=== PATIENT | male | born 1990 | race Caucasian/White ===

== ENCOUNTER 2016-07-10 06:52 | Inpatient (IN) | payer MEDICAID ==
[2016-07-10] MEDS ORDERED: Ondansetron 4 MG/2 ML SDV IVPUSH ONE ×2 (07:24→10:06)
[2016-07-10] MEDS ORDERED: Lactated Ringers 1,000 ML IV SCH ×2 (07:30→09:00)
[2016-07-10] MEDS ORDERED: Lactated Ringers 1,000 ML IV ONE (10:05)
[2016-07-10] MEDS ORDERED: Iopamidol 612 MG/ML 150 ML Bottle IV PRN (11:30)
[2016-07-10] MEDS ORDERED: Sodium Chloride 0.9% with KCl 1,000 ML IV SCH (12:15)
--- NOTE | 2016-07-10 14:32 | EDM.PDOC ---
ED HPI GENERAL MEDICAL PROBLEM - General Chief Complaint: Gastrointestinal Problem Stated Complaint: CAN'T KEEP ANYTHING DOWN Time Seen by Provider: 07/10/16 07:48 Source of Information: Reports: Patient History Limitations: Reports: No Limitations - History of Present Illness INITIAL COMMENTS - FREE TEXT/NARRATIVE: History of present illness: [25-year-old male presents with about 5 days of vomiting. He states he's had this problem in the past and has had to come in for IV fluids. He's got some generalized abdominal pain which she attributes to all the vomiting he's been doing. He's not had any diarrhea. He's had no fevers or chills. He does have a history of schizophrenia and is on Latuda and feels this is working well for him.] Review of systems: As per history of present illness and below otherwise all systems reviewed and negative. Past medical history: As per history of present illness and as reviewed below otherwise noncontributory. Surgical history: As per history of present illness and as reviewed below otherwise noncontributory. Social history: No reported history of drug or alcohol abuse. Family history: As per history of present illness and as reviewed below otherwise noncontributory. Physical exam: Gen.: He does appear to be D. hydrated in but he may seated with sunken eyes. HEENT: Atraumatic, normocephalic, pupils reactive, negative for conjunctival pallor or scleral icterus, mucous membranes moist, throat clear, neck supple, nontender, trachea midline. Lungs: Clear to auscultation, breath sounds equal bilaterally, chest nontender. Heart: S1S2, regular, negative for clicks, rubs, or JVD. Abdomen: Soft, nondistended, mild tenderness without peritoneal signs.. Negative for masses or hepatosplenomegaly. Negative for costovertebral tenderness. Pelvis: Stable nontender. Genitourinary: Deferred. Rectal: Deferred. Extremities: Atraumatic, negative for cords or calf pain. Neurovascular unremarkable. Neuro: Awake, alert, oriented. Cranial nerves II through XII unremarkable. Cerebellum unremarkable. Motor and sensory unremarkable throughout. Exam nonfocal. Diagnostics: [Serial labs were drawn and did show improvement in his white count and his potassium and his creatinine and BUN. Please see labs for details. I did do an abdominal pelvic CT because on careful examination of his abdomen he seemed to have some right lower quadrant abdominal pain but his appendix was normal.] Therapeutics: [He received 3 or 4 L of fluids while here and did improve and in looked better as we hydrated him.] Impression: [ nausea vomiting and dehydration] Plan: [He'll be discharged to the care of his father who he lives with. I am wondering if his medications to do could be contributing to this problem and he has an appointment coming up with the provider that is prescribing this for him and I suggested that he discuss this possibility with that provider.] Definitive disposition and diagnosis as appropriate pending reevaluation and review of above. - Related Data Allergies Allergy/AdvReac Type Severity Reaction Status Date / Time No Known Allergies Allergy Verified 09/26/15 20:28 Home Meds: Home Meds Lurasidone [Latuda] 1 tab PO DAILY 07/10/16 [History] Past Medical History Neurological History: Reports: Concussion Psychiatric History: Reports: Anxiety, Depression, Hallucinations, Psych Hospitalization(s), Schizophrenia, Suicidal Ideation - Infectious Disease History Infectious Disease History: Reports: Chicken Pox Social & Family History - Tobacco Use Smoking Status *Q: Current Every Day Smoker Years of Tobacco use: 6 Packs/Tins Daily: 0.5 Used Tobacco, but Quit: No Second Hand Smoke Exposure: No - Caffeine Use Caffeine Use: Reports: Soda Caffeine Use Comment: sweveral a day - Alcohol Use Days Per Week of Alcohol Use: 0 - Recreational Drug Use Recreational Drug Use: Yes Drug Use in Last 12 Months: Yes Recreational Drug Type: Reports: Marijuana/Hashish Recreational Drug Use Frequency: Weekly Recreational Drug Last Use: 10/28/13 ED ROS GENERAL - Review of Systems Review Of Systems: ROS reveals no pertinent complaints other than HPI. ED EXAM, GI/ABD - Physical Exam Exam: See Below Course - Vital Signs Last Recorded V/S: Last Vital Signs Temp 37.4 C 07/10/16 13:04 Pulse 78 07/10/16 13:04 Resp 12 07/10/16 13:04 BP 141/75 H 07/10/16 13:04 Pulse Ox 95 07/10/16 13:04 - Orders/Labs/Meds Orders: Active Orders 24 hr Category Date Time Status Abdomen 2V AP Flat Upright [CR] Stat Exams 07/10/16 07:34 Taken Abdomen Pelvis w Cont [CT] Stat Exams 07/10/16 10:58 Taken Iopamidol [Isovue-300 (61%)] Med 07/10/16 11:30 Active 132 ml IV . DIRECTED PRN Lactated Ringers [Ringers, Lactated] 1,000 ml Med 07/10/16 07:30 Active IV ASDIRECTED Lactated Ringers [Ringers, Lactated] 1,000 ml Med 07/10/16 09:00 Active IV ASDIRECTED Sodium Chloride 0.9% [Normal Saline] 83 ml Med 07/10/16 11:30 Active IV ASDIRECTED Sodium Chloride 0.9% with KCl [Normal Saline with 40 Med 07/10/16 12:15 Active mEq KCl] 1,000 ml IV ASDIRECTED Medication Orders Lactated Ringer's (Ringers, Lactated) 1,000 mls @ 999 mls/hr IV ASDIRECTED MAYLIN Last Admin: 07/10/16 07:36 Dose: 999 mls/hr Lactated Ringer's (Ringers, Lactated) 1,000 mls @ 999 mls/hr IV ASDIRECTED MAYLIN Last Admin: 07/10/16 08:49 Dose: 999 mls/hr Sodium Chloride (Normal Saline) 83 mls @ 3.5 mls/sec IV ASDIRECTED MAYLIN Last Admin: 07/10/16 11:40 Dose: 3.5 mls/sec Potassium Chloride/Sodium Chloride (Normal Saline With 40 Meq Kcl) 1,000 mls @ 250 mls/hr IV ASDIRECTED MAYLIN Last Admin: 07/10/16 12:10 Dose: 250 mls/hr Iopamidol (Isovue-300 (61%)) 132 ml IV . DIRECTED PRN PRN Reason: RADIOLOGY EXAM Stop: 07/11/16 11:31 Last Admin: 07/10/16 11:40 Dose: 132 ml Labs: Laboratory Tests 07/10/16 07/10/16 07/10/16 Range/Units 07:32 07:32 07:32 WBC 14.1 H (4.5-11.0) K/uL RBC 5.52 (4.30-5.90) M/uL Hgb 17.8 H D (12.0-15.0) g/dL Hct 50.0 (40.0-54.0) % MCV 91 (80-98) fL MCH 32 H (27-31) pg MCHC 36 (32-36) % Plt Count 345 (150-400) K/uL Neut % (Auto) 80 H (36-66) % Lymph % (Auto) 10 L (24-44) % [place] % (Auto) 10 H (2-6) % Eos % (Auto) 0 L (2-4) % Baso % (Auto) 0 (0-1) % Sodium 139 L (140-148) mmol/L Potassium 3.6 (3.6-5.2) mmol/L Chloride 97 L (100-108) mmol/L Carbon Dioxide 32 (21-32) mmol/L Anion Gap 13.6 (5.0-14.0) mmol/L BUN 21 H D (7-18) mg/dL Creatinine 1.8 H D (0.8-1.3) mg/dL Est Cr Clr Drug Dosing 68.26 mL/min Estimated GFR (MDRD) 46 L (>60) Glucose 155 H (74-106) mg/dL Lactic Acid 2.6 H (0.4-2.0) mmol/L Calcium 9.3 (8.5-10.1) mg/dL Total Bilirubin 0.9 (0.2-1.0) mg/dL AST 44 H (15-37) U/L ALT 40 (12-78) U/L Alkaline Phosphatase 68 (46-116) U/L Total Protein 8.7 H (6.4-8.2) g/dL Albumin 5.1 H (3.4-5.0) g/dL Globulin 3.6 H (2.3-3.5) g/dL Albumin/Globulin Ratio 1.4 (1.2-2.2) Urine Color Urine Appearance Urine pH (4.5-8.0) Ur Specific [place] (1.008-1.030) Urine Protein (NEGATIVE) mg/dL Urine Glucose (UA) (NEGATIVE) mg/dL Urine Ketones (NEGATIVE) mg/dL Urine Occult Blood (NEGATIVE) Urine Nitrite (NEGAITVE) Urine Bilirubin (NEGATIVE) Urine Urobilinogen (NORMAL) mg/dL Ur Leukocyte Esterase (NEGATIVE) Urine RBC (0-5) Urine WBC (0-5) Ur Epithelial Cells Amorphous Sediment Urine Bacteria Urine Mucus Urine Other Urine Opiates Screen (NEGATIVE) Ur Oxycodone Screen (NEGATIVE) Urine Methadone Screen (NEGATIVE) Ur Propoxyphene Screen (NEGATIVE) Ur Barbiturates Screen (NEGATIVE) Ur Tricyclics Screen (NEGATIVE) Ur Phencyclidine Scrn (NEGATIVE) Ur Amphetamine Screen (NEGATIVE) U Methamphetamines Scrn (NEGATIVE) Urine MDMA Screen (NEGATIVE) U Benzodiazepines Scrn (NEGATIVE) U Cocaine Metab Screen (NEGATIVE) U Marijuana (THC) Screen (NEGATIVE) Ethyl Alcohol mg/dL 07/10/16 07/10/16 07/10/16 Range/Units 07:32 09:40 09:40 WBC (4.5-11.0) K/uL RBC (4.30-5.90) M/uL Hgb (12.0-15.0) g/dL Hct (40.0-54.0) % MCV (80-98) fL MCH (27-31) pg MCHC (32-36) % Plt Count (150-400) K/uL Neut % (Auto) (36-66) % Lymph % (Auto) (24-44) % [place] % (Auto) (2-6) % Eos % (Auto) (2-4) % Baso % (Auto) (0-1) % Sodium (140-148) mmol/L Potassium (3.6-5.2) mmol/L Chloride (100-108) mmol/L Carbon Dioxide (21-32) mmol/L Anion Gap (5.0-14.0) mmol/L BUN (7-18) mg/dL Creatinine (0.8-1.3) mg/dL Est Cr Clr Drug Dosing mL/min Estimated GFR (MDRD) (>60) Glucose (74-106) mg/dL Lactic Acid (0.4-2.0) mmol/L Calcium (8.5-10.1) mg/dL Total Bilirubin (0.2-1.0) mg/dL AST (15-37) U/L ALT (12-78) U/L Alkaline Phosphatase (46-116) U/L Total Protein (6.4-8.2) g/dL Albumin (3.4-5.0) g/dL Globulin (2.3-3.5) g/dL Albumin/Globulin Ratio (1.2-2.2) Urine Color Yellow Urine Appearance Slightly cloudy Urine pH 7.0 (4.5-8.0) Ur Specific [place] 1.015 (1.008-1.030) Urine Protein 30 H (NEGATIVE) mg/dL Urine Glucose (UA) Normal (NEGATIVE) mg/dL Urine Ketones 15 H (NEGATIVE) mg/dL Urine Occult Blood Negative (NEGATIVE) Urine Nitrite Negative (NEGAITVE) Urine Bilirubin Negative (NEGATIVE) Urine Urobilinogen Normal (NORMAL) mg/dL Ur Leukocyte Esterase Negative (NEGATIVE) Urine RBC 0-5 (0-5) Urine WBC 0-5 (0-5) Ur Epithelial Cells Rare Amorphous Sediment Not seen Urine Bacteria Not seen Urine Mucus Many Urine Other Urine Opiates Screen Negative (NEGATIVE) Ur Oxycodone Screen Negative (NEGATIVE) Urine Methadone Screen Negative (NEGATIVE) Ur Propoxyphene Screen Negative (NEGATIVE) Ur Barbiturates Screen Negative (NEGATIVE) Ur Tricyclics Screen Negative (NEGATIVE) Ur Phencyclidine Scrn Negative (NEGATIVE) Ur Amphetamine Screen Negative (NEGATIVE) U Methamphetamines Scrn Negative (NEGATIVE) Urine MDMA Screen Negative (NEGATIVE) U Benzodiazepines Scrn Negative (NEGATIVE) U Cocaine Metab Screen Negative (NEGATIVE) U Marijuana (THC) Screen Positive H (NEGATIVE) Ethyl Alcohol < 3 mg/dL 07/10/16 07/10/16 07/10/16 Range/Units 11:06 13:58 13:58 WBC 13.4 H (4.5-11.0) K/uL RBC 4.80 (4.30-5.90) M/uL Hgb 15.6 H D (12.0-15.0) g/dL Hct 44.0 (40.0-54.0) % MCV 92 (80-98) fL MCH 33 H (27-31) pg MCHC 36 (32-36) % Plt Count 283 (150-400) K/uL Neut % (Auto) 72 H (36-66) % Lymph % (Auto) 16 L (24-44) % [place] % (Auto) 12 H (2-6) % Eos % (Auto) 0 L (2-4) % Baso % (Auto) 0 (0-1) % Sodium 140 139 L (140-148) mmol/L Potassium 3.3 L 3.6 (3.6-5.2) mmol/L Chloride 100 101 (100-108) mmol/L Carbon Dioxide 32 31 (21-32) mmol/L Anion Gap 11.3 10.6 (5.0-14.0) mmol/L BUN 19 H 16 (7-18) mg/dL Creatinine 1.5 H 1.4 H (0.8-1.3) mg/dL Est Cr Clr Drug Dosing 81.91 87.76 mL/min Estimated GFR (MDRD) 57 L > 60 (>60) Glucose 123 H 120 H (74-106) mg/dL Lactic Acid (0.4-2.0) mmol/L Calcium 9.0 8.6 (8.5-10.1) mg/dL Total Bilirubin (0.2-1.0) mg/dL AST (15-37) U/L ALT (12-78) U/L Alkaline Phosphatase (46-116) U/L Total Protein (6.4-8.2) g/dL Albumin (3.4-5.0) g/dL Globulin (2.3-3.5) g/dL Albumin/Globulin Ratio (1.2-2.2) Urine Color Urine Appearance Urine pH (4.5-8.0) Ur Specific [place] (1.008-1.030) Urine Protein (NEGATIVE) mg/dL Urine Glucose (UA) (NEGATIVE) mg/dL Urine Ketones (NEGATIVE) mg/dL Urine Occult Blood (NEGATIVE) Urine Nitrite (NEGAITVE) Urine Bilirubin (NEGATIVE) Urine Urobilinogen (NORMAL) mg/dL Ur Leukocyte Esterase (NEGATIVE) Urine RBC (0-5) Urine WBC (0-5) Ur Epithelial Cells Amorphous Sediment Urine Bacteria Urine Mucus Urine Other Urine Opiates Screen (NEGATIVE) Ur Oxycodone Screen (NEGATIVE) Urine Methadone Screen (NEGATIVE) Ur Propoxyphene Screen (NEGATIVE) Ur Barbiturates Screen (NEGATIVE) Ur Tricyclics Screen (NEGATIVE) Ur Phencyclidine Scrn (NEGATIVE) Ur Amphetamine Screen (NEGATIVE) U Methamphetamines Scrn (NEGATIVE) Urine MDMA Screen (NEGATIVE) U Benzodiazepines Scrn (NEGATIVE) U Cocaine Metab Screen (NEGATIVE) U Marijuana (THC) Screen (NEGATIVE) Ethyl Alcohol mg/dL Meds: Medications Generic Name Dose Route Start Last Admin Trade Name Freq PRN Reason Stop Dose Admin Lactated Ringer's 1,000 mls @ 999 mls/hr 07/10/16 07:30 07/10/16 07:36 Ringers, Lactated IV 999 mls/hr ASDIRECTED MAYLIN Administration Lactated Ringer's 1,000 mls @ 999 mls/hr 07/10/16 09:00 07/10/16 08:49 Ringers, Lactated IV 999 mls/hr ASDIRECTED MAYLIN Administration Sodium Chloride 83 mls @ 3.5 mls/sec 07/10/16 11:30 07/10/16 11:40 Normal Saline IV 3.5 mls/sec ASDIRECTED MAYLIN Administration Potassium Chloride/Sodium Chloride 1,000 mls @ 250 mls/hr 07/10/16 12:15 12:10 Normal Saline With 40 Meq Kcl IV 250 mls/hr ASDIRECTED MAYLIN Administration Iopamidol 132 ml 07/10/16 11:30 07/10/16 11:40 Isovue-300 (61%) IV 07/11/16 11:31 132 ml . DIRECTED PRN Administration RADIOLOGY EXAM Discontinued Medications Generic Name Dose Route Start Last Admin Trade Name Freq PRN Reason Stop Dose Admin Lactated Ringer's 1,000 mls @ 999 mls/hr 07/10/16 10:05 07/10/16 10:16 Ringers, Lactated IV 07/10/16 11:05 999 mls/hr BOLUS ONE Administration Ondansetron HCl 4 mg 07/10/16 07:24 07/10/16 07:41 Zofran IVPUSH 07/10/16 07:25 4 mg ONETIME ONE Administration Ondansetron HCl 4 mg 07/10/16 10:06 07/10/16 10:17 Zofran IVPUSH 07/10/16 10:07 4 mg ONETIME ONE Administration Departure - Departure Time of Disposition: 14:31 Disposition: Home, Self-Care 01 Condition: good Clinical Impression: Dehydration Nausea and vomiting Qualifiers: Vomiting type: unspecified Vomiting Intractability: non-intractable Qualified Code(s): R11.2 - Nausea with vomiting, unspecified - Discharge Information Forms: ED Department Discharge Additional Instructions: Please followup with the provider that is prescribing Latuda to you and discuss with them the possibility that this is causing you to have episodes of nausea and vomiting. - My Orders Last 24 Hours: My Active Orders 07/10/16 07:30 Lactated Ringers [Ringers, Lactated] 1,000 ml IV ASDIRECTED 07/10/16 07:34 Abdomen 2V AP Flat Upright [CR] Stat 07/10/16 09:00 Lactated Ringers [Ringers, Lactated] 1,000 ml IV ASDIRECTED 07/10/16 10:58 Abdomen Pelvis w Cont [CT] Stat 07/10/16 11:30 Iopamidol [Isovue-300 (61%)] 132 ml IV . DIRECTED PRN Sodium Chloride 0.9% [Normal Saline] 83 ml IV ASDIRECTED 07/10/16 12:15 Sodium Chloride 0.9% with KCl [Normal Saline with 40 mEq KCl] 1,000 ml IV ASDIRECTED - Assessment/Plan Last 24 Hours: My Active Orders 07/10/16 07:30 Lactated Ringers [Ringers, Lactated] 1,000 ml IV ASDIRECTED 07/10/16 07:34 Abdomen 2V AP Flat Upright [CR] Stat 07/10/16 09:00 Lactated Ringers [Ringers, Lactated] 1,000 ml IV ASDIRECTED 07/10/16 10:58 Abdomen Pelvis w Cont [CT] Stat 07/10/16 11:30 Iopamidol [Isovue-300 (61%)] 132 ml IV . DIRECTED PRN Sodium Chloride 0.9% [Normal Saline] 83 ml IV ASDIRECTED 07/10/16 12:15 Sodium Chloride 0.9% with KCl [Normal Saline with 40 mEq KCl] 1,000 ml IV ASDIRECTED
--- NOTE | 2016-07-10 17:10 | PCM.HP ---
H&P History of Present Illness - General Date of Service: 07/10/16 Admit Problem/Dx: Admission Diagnosis/Problem Admission Diagnosis/Problem Nausea and vomiting Source of Information: Patient, Old Records, Provider, RN Notes Reviewed History Limitations: Reports: No Limitations - History of Present Illness Initial Comments - Free Text/Narative: Mr. Crooks is a 25-year-old gentleman who is admitted through the emergency room for further evaluation of epigastric abdominal pain as well as persistent nausea and vomiting. He's had a history of intermittent nausea vomiting over the past few years seems to progressively gotten worse over the past 2 months and severely worse over the past several days. Now over the past 2 days has not had anything to eat but has been able to consume some liquids. He has an underlying history of schizophrenia, did start Latuda is a new medication approximately 2 months ago. Review of the potential side effects of medication showed that nausea and vomiting are possible. His white blood cell count is modestly elevated, CT scan of the abdomen and pelvis shows no significant abnormality. Vital signs have been stable and he has remained afebrile. Pain is described as an intense ache cramping sensation, it's always associated with nausea vomiting. Pain does not radiate, and once it starts it's persistent until he is able to go to sleep at night. - Related Data Allergies/Adverse Reactions: Allergies Allergy/AdvReac Type Severity Reaction Status Date / Time No Known Allergies Allergy Verified 09/26/15 20:28 Home Medications: Home Meds Lurasidone [Latuda] 1 tab PO DAILY 07/10/16 [History] Past Medical History Neurological History: Reports: Concussion Psychiatric History: Reports: Anxiety, Depression, Hallucinations, Psych Hospitalization(s), Schizophrenia, Suicidal Ideation - Infectious Disease History Infectious Disease History: Reports: Chicken Pox Social & Family History - Tobacco Use Smoking Status *Q: Current Every Day Smoker Years of Tobacco use: 6 Packs/Tins Daily: 0.5 Used Tobacco, but Quit: No Second Hand Smoke Exposure: No - Caffeine Use Caffeine Use: Reports: Soda Caffeine Use Comment: sweveral a day - Alcohol Use Days Per Week of Alcohol Use: 0 - Recreational Drug Use Recreational Drug Use: Yes Drug Use in Last 12 Months: Yes Recreational Drug Type: Reports: Marijuana/Hashish Recreational Drug Use Frequency: Weekly Recreational Drug Last Use: 10/28/13 H&P Review of Systems - Review of Systems: Review Of Systems: See Below General: Reports: Diaphoresis. Denies: Fever, Chills HEENT: Reports: No Symptoms Pulmonary: Reports: No Symptoms Cardiovascular: Reports: No Symptoms Gastrointestinal: Reports: Abdominal Pain, Nausea, Vomiting. Denies: Black Stool, Bloody Stool, Constipation, Diarrhea, Difficulty Swallowing, Distension Genitourinary: Reports: No Symptoms Musculoskeletal: Reports: No Symptoms Skin: Reports: No Symptoms Psychiatric: Reports: No Symptoms Neurological: Reports: No Symptoms Hematologic/Lymphatic: Reports: No Symptoms Immunologic: Reports: No Symptoms Exam - Exam Exam: See Below - Vital Signs Vital Signs: Last Vital Signs Temp 99.3 F 07/10/16 13:04 Pulse 78 07/10/16 13:04 Resp 12 07/10/16 13:04 BP 141/75 H 07/10/16 13:04 Pulse Ox 95 07/10/16 13:04 Weight: 195 lb - Exam Quality Assessment: DVT Prophylaxis General: Alert, Oriented, Cooperative, Mild Distress HEENT: Conjunctiva Clear, Hearing Intact, Mucosa Moist & [place], Nares Patent, Normal Nasal Septum, Posterior Pharynx Clear, Pupils Equal, Pupils Reactive Neck: Supple, Trachea Midline, +2 Carotid Pulse wo Bruit Lungs: Clear to Auscultation, Normal Respiratory Effort Cardiovascular: Regular Rate, Regular Rhythm, Normal S1, Normal S2 Abdomen: Normal Bowel Sounds, Soft, Tenderness. No: Organomegaly, Peritoneal Signs, Distention, Guarding, Rigidity, Rebound Back Exam: Normal Inspection, Full Range of Motion, NT Extremities: 3, Normal Inspection, 10 Skin: Warm, Dry, Intact Neurological: Cranial Nerves Intact, Strength Equal Bilateral, Normal Speech, Normal Tone, Sensation Intact. No: Focal Deficit Neuro Extensive - Mental Status: Alert, Oriented x3, Normal Mood/Affect, Normal Cognition, Memory Intact - Patient Data Result Diagrams: 07/10/16 13:58 07/10/16 13:58 *Q Meaningful Use (ADM) - VTE *Q VTE Criteria *Q: - VTE Risk Assess *Q Each Risk Factor Represents 1 Point: None Total Score 1 Point Risk Factors: 0 Each Risk Factor Represents 2 Points: None Total Score 2 Point Risk Factors: 0 Each Risk Factor Represents 3 Points: None Total Score 3 Point Risk Factors: 0 Each Risk Factor Represents 5 Points: None Total Score 5 Point Risk Factors: 0 Venous Thromboembolism Risk Factor Score *Q: 0 - Stroke *Q Stroke Criteria *Q: - AMI *Q AMI Criteria *Q: Problem List Initiated/Reviewed/Updated: Yes Orders Last 24hrs: Active Orders 24 hr Category Date Time Status Resuscitation Status Routine Resus Stat 07/10/16 16:27 Ordered Medication Orders Lactated Ringer's (Ringers, Lactated) 1,000 mls @ 999 mls/hr IV ASDIRECTED [facility] Last Admin: 07/10/16 07:36 Dose: 999 mls/hr Lactated Ringer's (Ringers, Lactated) 1,000 mls @ 999 mls/hr IV ASDIRECTED MAYLIN Last Admin: 07/10/16 08:49 Dose: 999 mls/hr Sodium Chloride (Normal Saline) 83 mls @ 3.5 mls/sec IV ASDIRECTED [facility] Last Admin: 07/10/16 11:40 Dose: 3.5 mls/sec Potassium Chloride/Sodium Chloride (Normal Saline With 40 Meq Kcl) 1,000 mls @ 250 mls/hr IV ASDIRECTED [facility] Last Admin: 07/10/16 12:10 Dose: 250 mls/hr Iopamidol (Isovue-300 (61%)) 132 ml IV . DIRECTED PRN PRN Reason: RADIOLOGY EXAM Stop: 07/11/16 11:31 Last Admin: 07/10/16 11:40 Dose: 132 ml Assessment/Plan Comment:: ASSESSMENT AND PLAN EPIGASTRIC ABDOMINAL PAIN ASSOCIATED WITH NAUSEA AND VOMITING-symptoms of nausea vomiting for sometime occurring only intermittently. Now significantly worse opacity much and most worse over the past few days. He reports that he's been unable to keep anything down now for the past 48 hours. Timing of worsening of nausea vomiting seem to occur around the time he started the Latuda. -Clear liquid diet -N.p.o. after midnight -Protonix 40 mg IV every 12 hours -Limited ultrasound in the morning to evaluate for gallbladder disease -Family history of hemachromatosis, will obtain iron as well as ferritin level -Consult Dr. Muñoz for EGD in the a.m. SCHIZOPHRENIA-history of being well controlled on current therapy. -Hold Latuda as a possible contributing factor with the nausea and vomiting -Discussed with psychiatric care provider in a.m. alternative medications for management MAINTENANCE ISSUES -DVT prophylaxis; MAURY hose -GI prophylaxis; Protonix as above -Nichols catheter; not indicated -Nutrition; clear liquid diet n.p.o. after midnight -Nicotine dependence; he does smoke but denies the need for nicotinic patch CODE STATUS-FULL CODE ADMISSION STATUS-patient will be admitted to inpatient status, expect at least a 2 night hospital stay for evaluation and management of problems as outlined above. At the time of this admission I do not reasonably expected evaluation and management of this problem will require more than a 96 hour hospital stay. DISPOSITION-anticipate discharge to home after the hospital stay. PRIMARY CARE PROVIDER-
[2016-07-10] MEDS ORDERED: Propofol 200 MG/20 ML SDV ONE (18:21)
[2016-07-10] MEDS ORDERED: fentaNYL 100 MCG/2 ML SDV ONE (18:21)
[2016-07-10] MEDS ORDERED: Midazolam 1 MG/ML 2 ML SDV ONE (18:21)
[2016-07-10] MEDS ORDERED: Scopolamine 1.5 MG Transdermal Patch TRDERM PRN (18:31)
[2016-07-10] MEDS ORDERED: Pantoprazole 40 MG Vial IVPUSH SCH (19:00)
[2016-07-10] MEDS ORDERED: Sodium Chloride 0.9% 10 ML Syringe FLUSH PRN (20:07)
[2016-07-10] MEDS ORDERED: Acetaminophen 325 MG Tab PO PRN (20:07)
[2016-07-10] MEDS ORDERED: Pantoprazole 40 MG Vial IV SCH (20:07)
[2016-07-10] MEDS ORDERED: oxyCODONE 5 MG Tab PO PRN (20:07)
[2016-07-10] MEDS ORDERED: Haloperidol Lactate 5 MG/ML SDV IVPUSH PRN (20:07)
[2016-07-10] MEDS: Ondansetron 4 MG/2 ML SDV IV PRN (20:48)
[2016-07-10] MEDS: Lactated Ringers 1,000 ML IV SCH (21:48)
[2016-07-10] MEDS: Pantoprazole 40 MG Vial IV SCH (21:53)
[2016-07-10] MEDS: Nystatin Susp 100,000 Unit/ML 5 ML UD Cup PO SCH (22:02)
[2016-07-11] MEDS: Ondansetron 4 MG/2 ML SDV IV PRN (00:53)
[2016-07-11] MEDS: LORazepam 2 MG/ML MDV IVPUSH PRN ×5 (01:12→22:38)
[2016-07-11] MEDS ORDERED: Ondansetron 4 MG/2 ML SDV IVPUSH SCH (03:00)
[2016-07-11] MEDS ORDERED: Promethazine 25 MG/ML SDV IV PRN (03:48)
[2016-07-11] MEDS ORDERED: Scopolamine 1.5 MG Transdermal Patch TOP PRN (03:51)
[2016-07-11] MEDS: Prochlorperazine 10 MG/2 ML SDV IVPUSH PRN ×2 (03:57→18:31)
[2016-07-11] MEDS ORDERED: Dexamethasone 4 MG/ML 5 ML MDV IVPUSH PRN (04:05)
[2016-07-11] MEDS ORDERED: Dronabinol 2.5 MG Cap PO PRN (04:07)
[2016-07-11] MEDS: Lactated Ringers 1,000 ML IV SCH ×3 (05:06→22:13)
[2016-07-11] MEDS: Ondansetron 4 MG/2 ML SDV IVPUSH SCH ×3 (05:06→13:44)
[2016-07-11] MEDS: Nystatin Susp 100,000 Unit/ML 5 ML UD Cup PO SCH ×4 (05:12→22:13)
--- NOTE | 2016-07-11 07:50 | OR ---
DATE OF PROCEDURE: 07/10/2016 PROCEDURE: EGD. FINDINGS: 1. Patulous area in gastric body most consistent with gastritis, no evidence of active ulceration. 2. Plaque-like material distal esophagus, differential could include esophagitis via thrush. COMPLICATIONS: None. TECHNOLOGY SALES CONSULTANT: None. RISKS: Risks, benefits, alternatives, and limitations, including, but not limited to infection, bleeding, and perforation were explained to the patient. POSTOP DIAGNOSIS: Epigastric pain. PROCEDURE IN DETAIL: The patient was placed in left lateral decubitus position. The EGD scope was then advanced atraumatically to the second part of the duodenum. The scope was brought back to the stomach and retroflexed. In the gastric body, approximately about a 4 cm area was patulous inflammation, this described as raw-looking tissue. There was no active bleeding or ulceration with this. A cold biopsy forceps was used to biopsy the area. No other abnormalities noted in the stomach. In the distal esophagus, the patient had a plaque-like material probably consistent with thrush. This was biopsied x2 for evaluation. No other abnormalities were noted. The air was removed from the stomach. The patient tolerated the procedure well. Jasbir Muñoz MD /[id number]
[2016-07-11] MEDS: VERIFY SCOP PATCH TOP SCH (08:03)
[2016-07-11] MEDS: Pantoprazole 40 MG Vial IV SCH ×2 (08:36→19:58)
--- NOTE | 2016-07-11 08:38 | CR ---
No dilated loops of large or small bowel. Nonobstructive bowel gas pattern.
--- NOTE | 2016-07-11 08:42 | US ---
Ultrasound abdomen Limited. Findings: Liver within normal limits. Gallbladder length 5.6 cm. No stones. Negative sonographic Mur phy's sign. Common bile duct measures 4.5 mm. Pancreas not well-visualized. Right kidney within norm al limits at 9.3 cm. No hydronephrosis. IVC is patent. No ascites fluid. Impression: 1. Negative right upper quadrant ultrasound.
[2016-07-11] MEDS ORDERED: Pneumococcal Polyvalent-23 Vaccine 0.5 ML SDV IM ONE (09:00)
--- NOTE | 2016-07-11 15:25 | PCM.PN ---
- General Info Date of Service: 07/11/16 Functional Status: Reports: pain controlled, ambulating, urinating - Review of Systems General: Denies: Fever, Chills Pulmonary: Reports: no symptoms Cardiovascular: Reports: No Symptoms Gastrointestinal: Reports: Abdominal pain, Nausea, Vomiting. Denies: Difficulty swallowing Systems Review Comment:: Mr. Crooks has felt somewhat improved since admission. EGD performed yesterday afternoon by Dr. Muñoz did show an area of significant gastritis within the stomach as well as thrush and yeast esophagitis. He's been started on nystatin swish and swallow and has been on Protonix 40 mg IV twice daily since admission. Pain has improved but not totally resolved and he continues to have some intermittent nausea and vomiting. Now that a specific etiology for his symptoms has been identified we'll plan to resume his antipsychotic therapy. - Patient Data Vitals - most recent: Last Vital Signs Temp 100.3 F 07/11/16 10:58 Pulse 58 L 07/11/16 10:58 Resp 18 07/11/16 10:58 BP 120/72 07/11/16 10:58 Pulse Ox 94 L 07/11/16 10:58 Weight - most recent: 194 lb 14.218 oz I&O - last 24 hours: Intake & Output 07/11/16 07/11/16 07/11/16 06:59 14:59 22:59 Intake Total 1811 60 Output Total 400 Balance 1411 60 Lab Results last 24 hrs: Laboratory Results - last 24 hr 07/11/16 07/11/16 07/11/16 Range/Units 05:00 05:00 05:00 WBC 9.8 (4.5-11.0) K/uL RBC 4.27 L (4.30-5.90) M/uL Hgb 13.8 (12.0-15.0) g/dL Hct 39.9 L (40.0-54.0) % MCV 93 (80-98) fL MCH 32 H (27-31) pg MCHC 35 (32-36) % Plt Count 260 (150-400) K/uL Neut % (Auto) 70 H (36-66) % Lymph % (Auto) 20 L (24-44) % [place] % (Auto) 9 H (2-6) % Eos % (Auto) 0 L (2-4) % Baso % (Auto) 0 (0-1) % Sodium 141 (140-148) mmol/L Potassium 3.5 L (3.6-5.2) mmol/L Chloride 104 (100-108) mmol/L Carbon Dioxide 31 (21-32) mmol/L Anion Gap 9.5 (5.0-14.0) mmol/L BUN 11 (7-18) mg/dL Creatinine 1.1 (0.8-1.3) mg/dL Est Cr Clr Drug Dosing 111.70 mL/min Estimated GFR (MDRD) > 60 (>60) Glucose 108 H (74-106) mg/dL Calcium 8.1 L (8.5-10.1) mg/dL Iron 140 (65-175) ug/dL TIBC 256 (250-450) ug/dl % Saturation 55 (20-55) % Ferritin 96 (8-388) ng/ml Med Orders - Current: Current Medications Acetaminophen (Tylenol) 650 mg PO Q4H PRN PRN Reason: Pain (Mild 1-3)/fever Dexamethasone (Dexamethasone) 10 mg IVPUSH Q4H PRN PRN Reason: N/V Dronabinol (Marinol) 2.5 mg PO BID PRN PRN Reason: N/V Haloperidol Lactate (Haldol) 2 mg IVPUSH Q2H PRN PRN Reason: Agitation Last Admin: 07/11/16 01:49 Dose: 2 mg Lactated Ringer's (Ringers, Lactated) 1,000 mls @ 125 mls/hr IV ASDIRECTED [facility] Last Admin: 07/11/16 13:32 Dose: 125 mls/hr Lorazepam (Ativan) 0.5 mg IVPUSH Q2H PRN PRN Reason: Anxiety Last Admin: 07/11/16 11:11 Dose: 0.5 mg Lurasidone HCl (Latuda) 40 mg PO DAILY [facility] Verify Scop Patch 0 each TOP DAILY [facility] Last Admin: 07/11/16 08:03 Dose: Not Given Nystatin (Mycostatin) 5 ml PO QID [facility] Last Admin: 07/11/16 10:52 Dose: 5 ml Oxycodone HCl (Oxycodone) 5 mg PO Q4H PRN PRN Reason: Pain (moderate 4-6) Pantoprazole Sodium (Protonix Iv) 40 mg IV Q12H [facility] Last Admin: 07/11/16 08:36 Dose: 40 mg Potassium Chloride (Klor-Con M20) 40 meq PO ONETIME ONE Stop: 07/11/16 15:21 Prochlorperazine Edisylate (Compazine) 5 - 10 mg IVPUSH Q4H PRN PRN Reason: NAUSEA Last Admin: 07/11/16 03:57 Dose: 10 mg Promethazine HCl (Phenergan) 12.5 - 25 mg IV Q4H PRN PRN Reason: NAUSEA Last Admin: 07/11/16 06:05 Dose: 25 mg Scopolamine (Transderm-Scop) 1.5 mg TRDERM Q72H PRN PRN Reason: Nausea Last Admin: 07/11/16 00:53 Dose: 1.5 mg Sodium Chloride (Saline Flush) 10 ml FLUSH ASDIRECTED PRN PRN Reason: Keep Vein Open Discontinued Medications Fentanyl (Sublimaze) Confirm Administered Dose 100 mcg .ROUTE .STK-MED ONE Stop: 07/10/16 18:22 Lactated Ringer's (Ringers, Lactated) 1,000 mls @ 999 mls/hr IV ASDIRECTED [facility] Last Admin: 07/10/16 07:36 Dose: 999 mls/hr Lactated Ringer's (Ringers, Lactated) 1,000 mls @ 999 mls/hr IV ASDIRECTED [facility] Last Admin: 07/10/16 08:49 Dose: 999 mls/hr Lactated Ringer's (Ringers, Lactated) 1,000 mls @ 999 mls/hr IV BOLUS ONE Stop: 07/10/16 11:05 Last Admin: 07/10/16 10:16 Dose: 999 mls/hr Sodium Chloride (Normal Saline) 83 mls @ 3.5 mls/sec IV ASDIRECTED [facility] Last Admin: 07/10/16 11:40 Dose: 3.5 mls/sec Potassium Chloride/Sodium Chloride (Normal Saline With 40 Meq Kcl) 1,000 mls @ 250 mls/hr IV ASDIRECTED [facility] Last Admin: 07/10/16 12:10 Dose: 250 mls/hr Iopamidol (Isovue-300 (61%)) 132 ml IV . DIRECTED PRN PRN Reason: RADIOLOGY EXAM Stop: 07/11/16 11:31 Last Admin: 07/10/16 11:40 Dose: 132 ml Midazolam HCl (Versed 1 Mg/Ml) Confirm Administered Dose 2 mg .ROUTE .STK-MED ONE Stop: 07/10/16 18:22 Ondansetron HCl (Zofran) 4 mg IVPUSH ONETIME ONE Stop: 07/10/16 07:25 Last Admin: 07/10/16 07:41 Dose: 4 mg Ondansetron HCl (Zofran) 4 mg IVPUSH ONETIME ONE Stop: 07/10/16 10:07 Last Admin: 07/10/16 10:17 Dose: 4 mg Ondansetron HCl (Zofran) 4 mg IV Q4H PRN PRN Reason: Nausea/Vomiting Last Admin: 07/11/16 00:53 Dose: 4 mg Ondansetron HCl (Zofran) 8 mg IVPUSH Q4H [facility] Last Admin: 07/11/16 03:43 Dose: Not Given Ondansetron HCl (Zofran) 8 mg IVPUSH Q4H [facility] Last Admin: 07/11/16 13:44 Dose: 8 mg Pantoprazole Sodium (Protonix Iv) 40 mg IVPUSH Q24H [facility] Last Admin: 07/10/16 19:59 Dose: 40 mg Pantoprazole Sodium (Protonix Iv) 40 mg IV Q12H [facility] Last Admin: 07/10/16 21:04 Dose: Not Given Pneumococcal Polyvalent Vaccine (Pneumovax 23) 0.5 ml IM .ONCE ONE Stop: 07/11/16 09:01 Last Admin: 07/11/16 11:02 Dose: 0.5 ml Propofol (Diprivan 20 Ml) Confirm Administered Dose 200 mg .ROUTE .STK-MED ONE Stop: 07/10/16 18:22 - Exam General: alert, oriented, cooperative, mild distress Lungs: Clear to auscultation, Normal respiratory effort Cardiovascular: Regular Rate, Regular Rhythm, No Murmurs Abdomen: bowel sounds present, soft, no tenderness, no distension Extremities: no edema Skin: warm, dry, intact - Problem List Review Problem List Initiated/Reviewed/Updated: Yes - My Orders Last 24 Hours: My Active Orders 07/10/16 20:00 Pantoprazole [ProTONIX IV] 40 mg IV Q12H 07/11/16 14:00 Lurasidone [Latuda] 40 mg PO DAILY 07/11/16 15:20 Potassium Chloride [Klor-Con M20] 40 meq PO ONETIME ONE 07/12/16 05:00 BASIC METABOLIC PANEL,BMP [CHEM] Timed - Plan Plan:: ASSESSMENT AND PLAN EPIGASTRIC ABDOMINAL PAIN ASSOCIATED WITH NAUSEA AND VOMITING-symptoms have improved since admission but not totally resolved. EGD showed evidence of gastritis and probable thrush with yeast esophagitis. Ultrasound showed no significant abnormalities of the gallbladder. Ferritin and iron studies are within normal range -Regular diet -Protonix 40 mg IV every 12 hours -Surgical followup per Dr. Muñoz SCHIZOPHRENIA-with a physical cause identified for his abdominal pain and nausea vomiting, it is less likely that his antipsychotic therapy is causing current symptoms -Resume Latuda MAINTENANCE ISSUES -DVT prophylaxis; MAURY hose -GI prophylaxis; Protonix as above -Nichols catheter; not indicated -Nutrition; clear liquid diet n.p.o. after midnight -Nicotine dependence; he does smoke but denies the need for nicotinic patch CODE STATUS-FULL CODE ADMISSION STATUS-patient will be admitted to inpatient status, expect at least a 2 night hospital stay for evaluation and management of problems as outlined above. At the time of this admission I do not reasonably expected evaluation and management of this problem will require more than a 96 hour hospital stay. DISPOSITION-anticipate discharge to home tomorrow PRIMARY CARE PROVIDER-
[2016-07-11] MEDS ORDERED: Potassium Chloride 20 MEQ Tab.ER PO ONE (16:00)
[2016-07-11] MEDS: Lurasidone 40 MG Tab PO SCH (16:14)
[2016-07-12] MEDS: Nystatin Susp 100,000 Unit/ML 5 ML UD Cup PO SCH ×4 (06:10→22:42)
[2016-07-12] MEDS: Lactated Ringers 1,000 ML IV SCH ×2 (06:14→16:31)
[2016-07-12] MEDS: Pantoprazole 40 MG Vial IV SCH ×2 (07:59→20:46)
[2016-07-12] MEDS: VERIFY SCOP PATCH TOP SCH (08:00)
[2016-07-12] MEDS: Lurasidone 40 MG Tab PO SCH (08:00)
[2016-07-12] MEDS ORDERED: Potassium Chloride 20 MEQ Tab.ER PO ONE (09:00)
[2016-07-12] MEDS: Sucralfate 1 GM Tab PO SCH ×3 (12:07→20:55)
[2016-07-12] MEDS: LORazepam 2 MG/ML MDV IVPUSH PRN (12:13)
[2016-07-12] MEDS: Prochlorperazine 10 MG/2 ML SDV IVPUSH PRN (15:13)
[2016-07-12] MEDS ORDERED: Dexamethasone 4 MG/ML SDV IVPUSH PRN (16:22)
[2016-07-12] MEDS: Ondansetron 4 MG/2 ML SDV IV PRN ×2 (16:25→23:04)
[2016-07-12] MEDS ORDERED: Lactated Ringers 1,000 ML IV SCH (17:00)
--- NOTE | 2016-07-12 17:05 | PCM.PN ---
- General Info Date of Service: 07/12/16 Functional Status: Reports: pain controlled, ambulating. Denies: tolerating diet - Review of Systems General: Reports: No Symptoms, Weakness. Denies: Fever, Chills Pulmonary: Reports: no symptoms Cardiovascular: Reports: No Symptoms Gastrointestinal: Reports: Abdominal pain, Nausea, Vomiting Systems Review Comment:: Initially this morning Mr. Crooks was feeling somewhat improved, as he tried heat later in the day redeveloped some pain with nausea and vomiting. Overall his symptoms are better than they had been prior to admission but certainly not totally resolved. Vital signs have been stable and he has remained afebrile. - Patient Data Vitals - most recent: Last Vital Signs Temp 99.7 F 07/12/16 14:44 Pulse 52 L 07/12/16 14:44 Resp 17 07/12/16 14:44 BP 145/78 H 07/12/16 14:44 Pulse Ox 98 07/12/16 14:44 Weight - most recent: 194 lb 14.218 oz I&O - last 24 hours: Intake & Output 07/12/16 07/12/16 07/12/16 06:59 14:59 22:59 Intake Total 1612 1100 Output Total 400 Balance 1612 700 Lab Results last 24 hrs: Laboratory Results - last 24 hr 07/12/16 Range/Units 05:55 Sodium 141 (140-148) mmol/L Potassium 3.5 L (3.6-5.2) mmol/L Chloride 105 (100-108) mmol/L Carbon Dioxide 28 (21-32) mmol/L Anion Gap 11.5 (5.0-14.0) mmol/L BUN 7 (7-18) mg/dL Creatinine 1.1 (0.8-1.3) mg/dL Est Cr Clr Drug Dosing 111.70 mL/min Estimated GFR (MDRD) > 60 (>60) Glucose 86 (74-106) mg/dL Calcium 8.0 L (8.5-10.1) mg/dL Med Orders - Current: Current Medications Acetaminophen (Tylenol) 650 mg PO Q4H PRN PRN Reason: Pain (Mild 1-3)/fever Dexamethasone (Dexamethasone) 10 mg IVPUSH Q4H PRN PRN Reason: N/V Dronabinol (Marinol) 2.5 mg PO BID PRN PRN Reason: N/V Haloperidol Lactate (Haldol) 2 mg IVPUSH Q2H PRN PRN Reason: Agitation Last Admin: 07/11/16 01:49 Dose: 2 mg Lactated Ringer's (Ringers, Lactated) 1,000 mls @ 50 mls/hr IV ASDIRECTED [facility] Lorazepam (Ativan) 0.5 mg IVPUSH Q2H PRN PRN Reason: Anxiety Last Admin: 07/12/16 12:13 Dose: 0.5 mg Lurasidone HCl (Latuda) 40 mg PO DAILY [facility] Last Admin: 07/12/16 08:00 Dose: 40 mg Verify Scop Patch 0 each TOP DAILY [facility] Last Admin: 07/12/16 08:00 Dose: Not Given Nystatin (Mycostatin) 5 ml PO QID [facility] Last Admin: 07/12/16 16:32 Dose: Not Given Ondansetron HCl (Zofran) 4 mg IV Q4H PRN PRN Reason: Nausea/Vomiting Last Admin: 07/12/16 16:25 Dose: 4 mg Oxycodone HCl (Oxycodone) 5 mg PO Q4H PRN PRN Reason: Pain (moderate 4-6) Pantoprazole Sodium (Protonix Iv) 40 mg IV Q12H [facility] Last Admin: 07/12/16 07:59 Dose: 40 mg Prochlorperazine Edisylate (Compazine) 5 - 10 mg IVPUSH Q4H PRN PRN Reason: NAUSEA Last Admin: 07/12/16 15:13 Dose: 10 mg Promethazine HCl (Phenergan) 12.5 - 25 mg IV Q4H PRN PRN Reason: NAUSEA Last Admin: 07/11/16 06:05 Dose: 25 mg Scopolamine (Transderm-Scop) 1.5 mg TRDERM Q72H PRN PRN Reason: Nausea Last Admin: 07/11/16 00:53 Dose: 1.5 mg Sodium Chloride (Saline Flush) 10 ml FLUSH ASDIRECTED PRN PRN Reason: Keep Vein Open Sucralfate (Carafate) 1 gm PO QIDACANDBED [facility] Last Admin: 07/12/16 12:07 Dose: 1 gm Discontinued Medications Dexamethasone (Dexamethasone) 10 mg IVPUSH Q4H PRN PRN Reason: N/V Fentanyl (Sublimaze) Confirm Administered Dose 100 mcg .ROUTE .STK-MED ONE Stop: 07/10/16 18:22 Lactated Ringer's (Ringers, Lactated) 1,000 mls @ 999 mls/hr IV ASDIRECTED [facility] Last Admin: 07/10/16 07:36 Dose: 999 mls/hr Lactated Ringer's (Ringers, Lactated) 1,000 mls @ 999 mls/hr IV ASDIRECTED [facility] Last Admin: 07/10/16 08:49 Dose: 999 mls/hr Lactated Ringer's (Ringers, Lactated) 1,000 mls @ 999 mls/hr IV BOLUS ONE Stop: 07/10/16 11:05 Last Admin: 07/10/16 10:16 Dose: 999 mls/hr Sodium Chloride (Normal Saline) 83 mls @ 3.5 mls/sec IV ASDIRECTED [facility] Last Admin: 07/10/16 11:40 Dose: 3.5 mls/sec Potassium Chloride/Sodium Chloride (Normal Saline With 40 Meq Kcl) 1,000 mls @ 250 mls/hr IV ASDIRECTED [facility] Last Admin: 07/10/16 12:10 Dose: 250 mls/hr Lactated Ringer's (Ringers, Lactated) 1,000 mls @ 75 mls/hr IV ASDIRECTED [facility] Last Admin: 07/12/16 16:31 Dose: 125 mls/hr Iopamidol (Isovue-300 (61%)) 132 ml IV . DIRECTED PRN PRN Reason: RADIOLOGY EXAM Stop: 07/11/16 11:31 Last Admin: 07/10/16 11:40 Dose: 132 ml Midazolam HCl (Versed 1 Mg/Ml) Confirm Administered Dose 2 mg .ROUTE .STK-MED ONE Stop: 07/10/16 18:22 Ondansetron HCl (Zofran) 4 mg IVPUSH ONETIME ONE Stop: 07/10/16 07:25 Last Admin: 07/10/16 07:41 Dose: 4 mg Ondansetron HCl (Zofran) 4 mg IVPUSH ONETIME ONE Stop: 07/10/16 10:07 Last Admin: 07/10/16 10:17 Dose: 4 mg Ondansetron HCl (Zofran) 4 mg IV Q4H PRN PRN Reason: Nausea/Vomiting Last Admin: 07/11/16 00:53 Dose: 4 mg Ondansetron HCl (Zofran) 8 mg IVPUSH Q4H [facility] Last Admin: 07/11/16 03:43 Dose: Not Given Ondansetron HCl (Zofran) 8 mg IVPUSH Q4H [facility] Last Admin: 07/11/16 13:44 Dose: 8 mg Pantoprazole Sodium (Protonix Iv) 40 mg IVPUSH Q24H [facility] Last Admin: 07/10/16 19:59 Dose: 40 mg Pantoprazole Sodium (Protonix Iv) 40 mg IV Q12H [facility] Last Admin: 07/10/16 21:04 Dose: Not Given Pneumococcal Polyvalent Vaccine (Pneumovax 23) 0.5 ml IM .ONCE ONE Stop: 07/11/16 09:01 Last Admin: 07/11/16 11:02 Dose: 0.5 ml Potassium Chloride (Klor-Con M20) 40 meq PO ONETIME ONE Stop: 07/11/16 16:01 Last Admin: 07/11/16 16:26 Dose: 40 meq Potassium Chloride (Klor-Con M20) 40 meq PO ONETIME ONE Stop: 07/12/16 09:01 Last Admin: 07/12/16 12:07 Dose: 40 meq Propofol (Diprivan 20 Ml) Confirm Administered Dose 200 mg .ROUTE .STK-MED ONE Stop: 07/10/16 18:22 - Exam Quality Assessment: DVT prophylaxis General: alert, oriented, cooperative, mild distress Lungs: Clear to auscultation, Normal respiratory effort Cardiovascular: Regular Rate, Regular Rhythm Abdomen: bowel sounds present, soft, no distension, tenderness. No: rigidity, rebound, guarding Extremities: no edema Skin: warm, dry, intact - Problem List Review Problem List Initiated/Reviewed/Updated: Yes - My Orders Last 24 Hours: My Active Orders 07/12/16 12:15 Sucralfate [Carafate] 1 gm PO QIDACANDBED 07/12/16 16:16 Ondansetron [Zofran] 4 mg IV Q4H PRN 07/12/16 17:00 Lactated Ringers @ 50 MLS/HR(1000ml) Lactated Ringers [Ringers, Lactated] 1, 000 ml IV ASDIRECTED 07/13/16 05:00 BASIC METABOLIC PANEL,BMP [CHEM] Timed - Plan Plan:: ASSESSMENT AND PLAN GASTRITIS AND YEAST ESOPHAGITIS-symptoms have improved since admission but not totally resolved. EGD showed evidence of gastritis and probable thrush with yeast esophagitis. Ultrasound showed no significant abnormalities of the gallbladder. Ferritin and iron studies are within normal range -Regular diet -Protonix 40 mg IV every 12 hours -Surgical followup per Dr. Muñoz SCHIZOPHRENIA-with a physical cause identified for his abdominal pain and nausea vomiting, it is less likely that his antipsychotic therapy is causing current symptoms -Resume Latuda MAINTENANCE ISSUES -DVT prophylaxis; MAURY hose -GI prophylaxis; Protonix as above -Nichols catheter; not indicated -Nutrition; clear liquid diet n.p.o. after midnight -Nicotine dependence; he does smoke but denies the need for nicotinic patch CODE STATUS-FULL CODE ADMISSION STATUS-patient will be admitted to inpatient status, expect at least a 2 night hospital stay for evaluation and management of problems as outlined above. At the time of this admission I do not reasonably expected evaluation and management of this problem will require more than a 96 hour hospital stay. DISPOSITION-anticipate discharge to home tomorrow PRIMARY CARE PROVIDER-
[2016-07-13] MEDS: Nystatin Susp 100,000 Unit/ML 5 ML UD Cup PO SCH ×2 (06:19→10:11)
[2016-07-13] MEDS: Sucralfate 1 GM Tab PO SCH ×2 (07:07→11:03)
[2016-07-13] MEDS: Pantoprazole 40 MG Vial IV SCH (07:49)
[2016-07-13] MEDS: VERIFY SCOP PATCH TOP SCH (09:15)
[2016-07-13] MEDS: Lurasidone 40 MG Tab PO SCH (10:11)
[2016-07-13 10:35] VITALS: BP 116/55
--- NOTE | 2016-07-13 13:19 | PCM.DCSUM1 ---
Discharge Summary - Hospital Course Brief History: This patient is a 25-year-old gentleman who is admitted through the emergency room with intractable nausea and vomiting secondary to gastritis. - Discharge Data Discharge Date: 07/13/16 Discharge Disposition: Home, Self-Care 01 Condition: Fair - Discharge Diagnosis/Problem(s) (1) Gastritis SNOMED Code(s): 5074640 ICD Code: K29.70 - GASTRITIS, UNSPECIFIED, WITHOUT BLEEDING Status: Acute Current Visit: Yes (2) Juanita esophagitis SNOMED Code(s): 50804668 ICD Code: B37.81 - CANDIDAL ESOPHAGITIS Status: Acute Current Visit: Yes (3) Nausea and vomiting SNOMED Code(s): 99014407 ICD Code: R11.2 - NAUSEA WITH VOMITING, UNSPECIFIED Status: Acute Current Visit: Yes Qualifiers: Vomiting type: unspecified Vomiting Intractability: non-intractable Qualified Code(s): R11.2 - Nausea with vomiting, unspecified (4) Dehydration SNOMED Code(s): 22432632 ICD Code: E86.0 - DEHYDRATION Status: Acute Current Visit: Yes (5) Schizophrenia SNOMED Code(s): 02967668 ICD Code: F20.9 - SCHIZOPHRENIA, UNSPECIFIED Status: Chronic Current Visit: No - Patient Summary/Data Hospital Course: Mr. Crooks is a 25-year-old gentleman who has had ongoing difficulty with nausea vomiting over the past 2 years. Symptoms significantly increased over the past 2 months and 2 days prior to admission had persistent nausea vomiting to the point that he was unable to eat or keep liquids down. On initial evaluation was noted to be dehydrated and weak. He was admitted to the hospital and given IV fluids for hydration and started on IV Protonix twice daily. Dr. Muñoz was consulted and performed an EGD the following day which showed evidence of a large area of gastritis that appeared to be fairly severe as well as yeast esophagitis. He was started on nystatin swish and swallow for treatment of the underlying yeast infection. He also has a known history of schizophrenia, initially was felt that potentially his antipsychotic medications could be contributing to the nausea vomiting. After he was found to have abnormalities in the stomach and esophagus was felt these were the most likely cause of symptoms and he was started back on his antipsychotic medication. He improved over the next few days with management including the Protonix, nystatin, and Carafate. He will be discharged home on the same medication. Followup appointment will be scheduled with primary care within one week as well as a followup appointment with his mental health provider. Activity will be as tolerated and diet will be as tolerated as well. - Patient Instructions Diet: Usual Diet as Tolerated Activity: As Tolerated Other/Special Instructions: Schedule followup appointment with his psychiatric care provider within 2 weeks. Schedule followup appointment with primary care within one week. - Discharge Plan Prescriptions/Med Rec: Nystatin [Mycostatin] 5 ml PO QID #240 ml Pantoprazole [ProTONIX] 40 mg PO BIDAC #30 tab.cr Sucralfate [Carafate] 1 gm PO QIDACANDBED #120 tablet Home Medications: Home Meds Lurasidone [Latuda] 40 mg PO DAILY 07/10/16 [History] Nystatin [Mycostatin] 5 ml PO QID #240 ml 07/13/16 [Rx] Pantoprazole [ProTONIX] 40 mg PO BIDAC #30 tab.cr 07/13/16 [Rx] Sucralfate [Carafate] 1 gm PO QIDACANDBED #120 tablet 07/13/16 [Rx] Patient Handouts: Nausea, Adult, Dehydration, Adult, [id number] - Patient Data Vitals - Most Recent: Last Vital Signs Temp 97.5 F 07/13/16 10:30 Pulse 62 07/13/16 10:30 Resp 16 07/13/16 10:30 BP 116/55 L 07/13/16 10:30 Pulse Ox 94 L 07/13/16 10:30 Weight - Most Recent: 194 lb 14.218 oz I&O - Last 24 hours: Intake & Output 07/12/16 07/13/16 07/13/16 22:59 06:59 14:59 Intake Total 1971 537 318 Output Total 100 Balance 1971 437 318 Lab Results - Last 24 hrs: Laboratory Results - last 24 hr 07/13/16 Range/Units 05:00 Sodium 139 L (140-148) mmol/L Potassium 4.4 (3.6-5.2) mmol/L Chloride 102 (100-108) mmol/L Carbon Dioxide 26 (21-32) mmol/L Anion Gap 15.4 H (5.0-14.0) mmol/L BUN 8 (7-18) mg/dL Creatinine 1.0 (0.8-1.3) mg/dL Est Cr Clr Drug Dosing 122.87 mL/min Estimated GFR (MDRD) > 60 (>60) Glucose 110 H (74-106) mg/dL Calcium 8.8 (8.5-10.1) mg/dL Med Orders - Current: Current Medications Acetaminophen (Tylenol) 650 mg PO Q4H PRN PRN Reason: Pain (Mild 1-3)/fever Dexamethasone (Dexamethasone) 10 mg IVPUSH Q4H PRN PRN Reason: N/V Last Admin: 07/12/16 17:12 Dose: 10 mg Dronabinol (Marinol) 2.5 mg PO BID PRN PRN Reason: N/V Haloperidol Lactate (Haldol) 2 mg IVPUSH Q2H PRN PRN Reason: Agitation Last Admin: 07/11/16 01:49 Dose: 2 mg Lactated Ringer's (Ringers, Lactated) 1,000 mls @ 50 mls/hr IV ASDIRECTED [facility] Lorazepam (Ativan) 0.5 mg IVPUSH Q2H PRN PRN Reason: Anxiety Last Admin: 07/12/16 12:13 Dose: 0.5 mg Lurasidone HCl (Latuda) 40 mg PO DAILY [facility] Last Admin: 07/13/16 10:11 Dose: 40 mg Verify Scop Patch 0 each TOP DAILY [facility] Last Admin: 07/13/16 09:15 Dose: Not Given Nystatin (Mycostatin) 5 ml PO QID [facility] Last Admin: 07/13/16 10:11 Dose: 5 ml Ondansetron HCl (Zofran) 4 mg IV Q4H PRN PRN Reason: Nausea/Vomiting Last Admin: 07/12/16 23:04 Dose: 4 mg Oxycodone HCl (Oxycodone) 5 mg PO Q4H PRN PRN Reason: Pain (moderate 4-6) Last Admin: 07/13/16 00:15 Dose: 5 mg Pantoprazole Sodium (Protonix) 40 mg PO BIDAC [facility] Prochlorperazine Edisylate (Compazine) 5 - 10 mg IVPUSH Q4H PRN PRN Reason: NAUSEA Last Admin: 07/12/16 15:13 Dose: 10 mg Promethazine HCl (Phenergan) 12.5 - 25 mg IV Q4H PRN PRN Reason: NAUSEA Last Admin: 07/11/16 06:05 Dose: 25 mg Scopolamine (Transderm-Scop) 1.5 mg TRDERM Q72H PRN PRN Reason: Nausea Last Admin: 07/11/16 00:53 Dose: 1.5 mg Sodium Chloride (Saline Flush) 10 ml FLUSH ASDIRECTED PRN PRN Reason: Keep Vein Open Sucralfate (Carafate) 1 gm PO QIDACANDBED [facility] Last Admin: 07/13/16 11:03 Dose: 1 gm Discontinued Medications Dexamethasone (Dexamethasone) 10 mg IVPUSH Q4H PRN PRN Reason: N/V Fentanyl (Sublimaze) Confirm Administered Dose 100 mcg .ROUTE .STK-MED ONE Stop: 07/10/16 18:22 Lactated Ringer's (Ringers, Lactated) 1,000 mls @ 999 mls/hr IV ASDIRECTED [facility] Last Admin: 07/10/16 07:36 Dose: 999 mls/hr Lactated Ringer's (Ringers, Lactated) 1,000 mls @ 999 mls/hr IV ASDIRECTED [facility] Last Admin: 07/10/16 08:49 Dose: 999 mls/hr Lactated Ringer's (Ringers, Lactated) 1,000 mls @ 999 mls/hr IV BOLUS ONE Stop: 07/10/16 11:05 Last Admin: 07/10/16 10:16 Dose: 999 mls/hr Sodium Chloride (Normal Saline) 83 mls @ 3.5 mls/sec IV ASDIRECTED [facility] Last Admin: 07/10/16 11:40 Dose: 3.5 mls/sec Potassium Chloride/Sodium Chloride (Normal Saline With 40 Meq Kcl) 1,000 mls @ 250 mls/hr IV ASDIRECTED [facility] Last Admin: 07/10/16 12:10 Dose: 250 mls/hr Lactated Ringer's (Ringers, Lactated) 1,000 mls @ 75 mls/hr IV ASDIRECTED [facility] Last Admin: 07/12/16 16:31 Dose: 125 mls/hr Iopamidol (Isovue-300 (61%)) 132 ml IV . DIRECTED PRN PRN Reason: RADIOLOGY EXAM Stop: 07/11/16 11:31 Last Admin: 07/10/16 11:40 Dose: 132 ml Midazolam HCl (Versed 1 Mg/Ml) Confirm Administered Dose 2 mg .ROUTE .STK-MED ONE Stop: 07/10/16 18:22 Ondansetron HCl (Zofran) 4 mg IVPUSH ONETIME ONE Stop: 07/10/16 07:25 Last Admin: 07/10/16 07:41 Dose: 4 mg Ondansetron HCl (Zofran) 4 mg IVPUSH ONETIME ONE Stop: 07/10/16 10:07 Last Admin: 07/10/16 10:17 Dose: 4 mg Ondansetron HCl (Zofran) 4 mg IV Q4H PRN PRN Reason: Nausea/Vomiting Last Admin: 07/11/16 00:53 Dose: 4 mg Ondansetron HCl (Zofran) 8 mg IVPUSH Q4H [facility] Last Admin: 07/11/16 03:43 Dose: Not Given Ondansetron HCl (Zofran) 8 mg IVPUSH Q4H [facility] Last Admin: 07/11/16 13:44 Dose: 8 mg Pantoprazole Sodium (Protonix Iv) 40 mg IVPUSH Q24H [facility] Last Admin: 07/10/16 19:59 Dose: 40 mg Pantoprazole Sodium (Protonix Iv) 40 mg IV Q12H [facility] Last Admin: 07/10/16 21:04 Dose: Not Given Pantoprazole Sodium (Protonix Iv) 40 mg IV Q12H [facility] Last Admin: 07/13/16 07:49 Dose: 40 mg Pneumococcal Polyvalent Vaccine (Pneumovax 23) 0.5 ml IM .ONCE ONE Stop: 07/11/16 09:01 Last Admin: 07/11/16 11:02 Dose: 0.5 ml Potassium Chloride (Klor-Con M20) 40 meq PO ONETIME ONE Stop: 07/11/16 16:01 Last Admin: 07/11/16 16:26 Dose: 40 meq Potassium Chloride (Klor-Con M20) 40 meq PO ONETIME ONE Stop: 07/12/16 09:01 Last Admin: 07/12/16 12:07 Dose: 40 meq Propofol (Diprivan 20 Ml) Confirm Administered Dose 200 mg .ROUTE .STK-MED ONE Stop: 07/10/16 18:22 *Q Meaningful Use (DIS) - VTE *Q VTE Criteria *Q: - Stroke *Q Stroke Criteria *Q: - AMI *Q AMI Criteria *Q:
[2016-07-13] MEDS ORDERED: Pantoprazole 40 MG Tab.CR PO SCH (16:30)
== END 2016-07-13 13:50 | disposition home or self-care (01) | DRG 392 ==
LOC: JP.ED 06:52 → UNDOADMIN 16:26 → JP.MS 16:26 → JP.SDS 17:29 → JP.MS 17:30
PROVIDERS: ADMIT Hospitalist; ATTEND Hospitalist
PROC: 0DB68ZX Excision of Stomach, Via Natural or Artificial Opening Endoscopic, Diagnostic (ICD-10-PCS; principal; 2016-07-10)
PROC: 0DB38ZX Excision of Lower Esophagus, Via Natural or Artificial Opening Endoscopic, Diagnostic (ICD-10-PCS; principal; 2016-07-10)
DX: K29.70 Gastritis, unspecified, without bleeding (principal); B37.81 Candidal esophagitis; R11.2 Nausea with vomiting, unspecified; E86.0 Dehydration; F20.9 Schizophrenia, unspecified; F17.210 Nicotine dependence, cigarettes, uncomplicated; Z23 Encounter for immunization; F12.90 Cannabis use, unspecified, uncomplicated
CPT/HCPCS: 36415; 74020; 74020-26; 74177; 76705; 76705-26; 80048; 80053; 80305; 81001; 82728; 83550; 83605; 85025; 86140; 88305; 88312; 90732; 96361; 96374; 99285-25; A9270-GY; C9113; G0480; J0780; J1100; J1630; J2060; J2250; J2405; J2550; J2704; J3010; J3480; J7030; J7120

== ENCOUNTER 2016-08-07 08:31 | Emergency (ER) | payer MEDICAID ==
[2016-08-07] MEDS ORDERED: Sodium Chloride 0.9% 10 ML Syringe FLUSH PRN (09:41)
[2016-08-07] MEDS ORDERED: Sodium Chloride 0.9% 1,000 ML IV STA (09:41)
[2016-08-07] MEDS ORDERED: Ondansetron 4 MG/2 ML SDV IVPUSH ONE (09:41)
--- NOTE | 2016-08-07 09:44 | EDM.PDOC ---
ED HPI GENERAL MEDICAL PROBLEM - General Chief Complaint: Gastrointestinal Problem Stated Complaint: VOMITING FOR 2 DAYS Time Seen by Provider: 08/07/16 09:30 Source of Information: Reports: Patient, Old Records, RN Notes Reviewed History Limitations: Reports: No Limitations - History of Present Illness INITIAL COMMENTS - FREE TEXT/NARRATIVE: 25-year-old gentleman presents emergency department day complaint of nausea and vomiting, he was recently admitted to the hospital first part of this month for severe intractable nausea and vomiting underwent EGD which just showed gastritis as well as yeast infection treated with nystatin. He states he's done well over the course of the month however 3 days prior he did use cannabis within the next 24 hours developed significant nausea and vomiting unable to keep any food products down he also admits to taking excessive showers - Related Data Allergies Allergy/AdvReac Type Severity Reaction Status Date / Time No Known Allergies Allergy Verified 09/26/15 20:28 Home Meds: Home Meds Lurasidone [Latuda] 40 mg PO DAILY 07/10/16 [History] Nystatin [Mycostatin] 5 ml PO QID #240 ml 07/13/16 [Rx] Pantoprazole [ProTONIX] 40 mg PO BIDAC #30 tab.cr 07/13/16 [Rx] Sucralfate [Carafate] 1 gm PO QIDACANDBED #120 tablet 07/13/16 [Rx] Past Medical History Gastrointestinal History: Reports: Gastritis Other Gastrointestinal History: EGD Musculoskeletal History: Reports: Fracture Neurological History: Reports: Concussion Psychiatric History: Reports: Anxiety, Depression, Hallucinations, Psych Hospitalization(s), Schizophrenia, Suicidal Ideation - Infectious Disease History Infectious Disease History: Reports: Chicken Pox - Past Surgical History GI Surgical History: Reports: EGD Social & Family History - Tobacco Use Smoking Status *Q: Current Every Day Smoker Years of Tobacco use: 6 Packs/Tins Daily: 0.5 Used Tobacco, but Quit: No Second Hand Smoke Exposure: Yes - Caffeine Use Caffeine Use: Reports: Soda Caffeine Use Comment: 2-3/day - Alcohol Use Days Per Week of Alcohol Use: 0 - Recreational Drug Use Recreational Drug Use: Yes Drug Use in Last 12 Months: Yes Recreational Drug Type: Reports: Marijuana/Hashish Recreational Drug Use Frequency: Weekly Recreational Drug Last Use: 10/28/13 ED ROS GENERAL - Review of Systems Review Of Systems: See Below Constitutional: Denies: Fever, Chills HEENT: Reports: No Symptoms Respiratory: Reports: No Symptoms Cardiovascular: Reports: No Symptoms GI/Abdominal: Reports: Nausea, Vomiting. Denies: Abdominal Pain : Reports: No Symptoms Musculoskeletal: Reports: No Symptoms Skin: Reports: No Symptoms Neurological: Reports: No Symptoms Psychiatric: Reports: No Symptoms ED EXAM, GI/ABD - Physical Exam Exam: See Below Text/Narrative:: General: Male, not in any distress, alert and oriented x3 HEENT: head is atraumatic normocephalic, eyes pupils equal round reactive to light, sclera clear no conjunctivitis appreciated. Ears tympanic membranes clear and samuel landmarks and light reflex are present bilaterally canals are clear. Nose no septal deviation, nares are clear, no blood present. Mouth mucosa is moist and pink no erythema or exudate noted in soft palate, tongue is midline uvula is midline, dentition is intact. Neck: Supple no thyromegaly no tracheal deviation. Nodes: Cervical nodes subclavicular nodes nontender no palpable lymphadenopathy noted. Lungs: clear to auscultation bilaterally with symmetrical respirations, no adventitious noise appreciated. CV: Regular rate and rhythm S1 and S2 appreciated no murmurs rubs or gallops noted. Abdomen: Soft, nontender, no palpable masses or organomegaly appreciated, no distention no guarding bowel sounds are present, . Neuro: Cranial nerves II through XII grossly intact Skin: Warm and dry, intact Extremities: No lower extremity edema appreciated, pedal pulse is +2. Course - Vital Signs Last Recorded V/S: Last Vital Signs Temp 99.2 F 08/07/16 13:18 Pulse 73 08/07/16 13:18 Resp 14 08/07/16 13:18 BP 110/49 L 08/07/16 13:18 Pulse Ox 96 08/07/16 13:18 - Orders/Labs/Meds Orders: Active Orders 24 hr Category Date Time Status Peripheral IV Care [RC] . DIRECTED Care 08/07/16 09:41 Active UA W/MICROSCOPIC [URIN] Urgent Lab 08/07/16 13:46 Received Sodium Chloride 0.9% [Normal Saline] 1,000 ml Med 08/07/16 13:18 Active IV .BOLUS Sodium Chloride 0.9% [Saline Flush] Med 08/07/16 09:41 Active 10 ml FLUSH ASDIRECTED PRN Peripheral IV Insertion Adult [OM.PC] Urgent Oth 08/07/16 09:41 Ordered Medication Orders Sodium Chloride (Normal Saline) 1,000 mls @ 999 mls/hr IV .BOLUS ONE Stop: 08/07/16 14:18 Last Admin: 08/07/16 13:20 Dose: 999 mls/hr Sodium Chloride (Saline Flush) 10 ml FLUSH ASDIRECTED PRN PRN Reason: Keep Vein Open Last Admin: 08/07/16 09:51 Dose: 10 ml Labs: Laboratory Tests 08/07/16 08/07/16 08/07/16 Range/Units 09:58 09:58 13:46 WBC 16.0 H (4.5-11.0) K/uL RBC 5.35 (4.30-5.90) M/uL Hgb 17.6 H D (12.0-15.0) g/dL Hct 48.8 (40.0-54.0) % MCV 91 (80-98) fL MCH 33 H (27-31) pg MCHC 36 (32-36) % Plt Count 342 (150-400) K/uL Neut % (Auto) 79 H (36-66) % Lymph % (Auto) 10 L (24-44) % [place] % (Auto) 11 H (2-6) % Eos % (Auto) 0 L (2-4) % Baso % (Auto) 0 (0-1) % Sodium 142 (140-148) mmol/L Potassium 3.5 L (3.6-5.2) mmol/L Chloride 100 (100-108) mmol/L Carbon Dioxide 31 (21-32) mmol/L Anion Gap 14.5 H (5.0-14.0) mmol/L BUN 14 D (7-18) mg/dL Creatinine 1.3 (0.8-1.3) mg/dL Est Cr Clr Drug Dosing 94.51 mL/min Estimated GFR (MDRD) > 60 (>60) Glucose 104 (74-106) mg/dL Calcium 9.9 (8.5-10.1) mg/dL Total Bilirubin 0.7 (0.2-1.0) mg/dL AST 24 (15-37) U/L ALT 43 (12-78) U/L Alkaline Phosphatase 66 (46-116) U/L Total Protein 8.3 H (6.4-8.2) g/dL Albumin 4.6 (3.4-5.0) g/dL Globulin 3.7 H (2.3-3.5) g/dL Albumin/Globulin Ratio 1.2 (1.2-2.2) Urine Opiates Screen Negative (NEGATIVE) Ur Oxycodone Screen Negative (NEGATIVE) Urine Methadone Screen Negative (NEGATIVE) Ur Propoxyphene Screen Negative (NEGATIVE) Ur Barbiturates Screen Negative (NEGATIVE) Ur Tricyclics Screen Negative (NEGATIVE) Ur Phencyclidine Scrn Negative (NEGATIVE) Ur Amphetamine Screen Negative (NEGATIVE) U Methamphetamines Scrn Negative (NEGATIVE) Urine MDMA Screen Negative (NEGATIVE) U Benzodiazepines Scrn Negative (NEGATIVE) U Cocaine Metab Screen Negative (NEGATIVE) U Marijuana (THC) Screen Positive H (NEGATIVE) Meds: Medications Generic Name Dose Route Start Last Admin Trade Name Freq PRN Reason Stop Dose Admin Sodium Chloride 1,000 mls @ 999 mls/hr 08/07/16 13:18 08/07/16 13:20 Normal Saline IV 08/07/16 14:18 999 mls/hr .BOLUS ONE Administration Sodium Chloride 10 ml 08/07/16 09:41 08/07/16 09:51 Saline Flush FLUSH 10 ml ASDIRECTED PRN Administration Keep Vein Open Discontinued Medications Generic Name Dose Route Start Last Admin Trade Name Freq PRN Reason Stop Dose Admin Sodium Chloride 1,000 mls @ 999 mls/hr 08/07/16 09:41 08/07/16 09:52 Normal Saline IV 08/07/16 10:41 999 mls/hr .BOLUS STA Administration Sodium Chloride 1,000 mls @ 999 mls/hr 08/07/16 10:54 08/07/16 10:55 Normal Saline IV 08/07/16 11:54 999 mls/hr .BOLUS ONE Administration Sodium Chloride 1,000 mls @ 999 mls/hr 08/07/16 12:09 08/07/16 12:10 Normal Saline IV 08/07/16 13:09 999 mls/hr .BOLUS ONE Administration Ondansetron HCl 4 mg 08/07/16 09:41 08/07/16 09:54 Zofran IVPUSH 08/07/16 09:42 4 mg ONETIME ONE Administration Departure - Departure Time of Disposition: 14:00 Disposition: Home, Self-Care 01 Condition: Good Clinical Impression: Cannabinoid hyperemesis syndrome - Discharge Information Forms: ED Department Discharge Additional Instructions: Please refrain from using cannabis, continue to use her Zofran as needed for nausea and vomiting symptoms, Please followup with your primary care provider in 3-5 days if not better, please call return to the emergency department with worsening of symptoms. - My Orders Last 24 Hours: My Active Orders 08/07/16 09:41 Peripheral IV Care [RC] . DIRECTED Sodium Chloride 0.9% [Saline Flush] 10 ml FLUSH ASDIRECTED PRN Peripheral IV Insertion Adult [OM.PC] Urgent 08/07/16 13:18 Sodium Chloride 0.9% [Normal Saline] 1,000 ml IV .BOLUS 08/07/16 13:46 UA W/MICROSCOPIC [URIN] Urgent - Assessment/Plan Last 24 Hours: My Active Orders 08/07/16 09:41 Peripheral IV Care [RC] . DIRECTED Sodium Chloride 0.9% [Saline Flush] 10 ml FLUSH ASDIRECTED PRN Peripheral IV Insertion Adult [OM.PC] Urgent 08/07/16 13:18 Sodium Chloride 0.9% [Normal Saline] 1,000 ml IV .BOLUS 08/07/16 13:46 UA W/MICROSCOPIC [URIN] Urgent Plan: Assessment Acuity = acute on chronic Site and laterality = cannabis hyperemesis syndrome Etiology = secondary to recreational cannabis use Manifestations = nausea vomiting intravascular volume depletion Location of injury = home Lab values = WBC elevated at 16.0 consistent leukocytosis, potassium low at 3.5 consistent hypokalemia urinalysis is unremarkable drug screen positive for cannabis Plan It took 4 L of fluid before he was able to give a urine sample,, he states that he is going to try and refrain from using cannabis follow-up with primary care as needed Patient was in agreement with the plan all questions were answered, they were instructed to return to the emergency department or call for worsening symptoms. This note was dictated using [employer] voice recognition software please call with any questions.
[2016-08-07] MEDS ORDERED: Sodium Chloride 0.9% 1,000 ML IV ONE ×3 (10:54→13:18)
[2016-08-07 13:19] VITALS: BP 110/49
== END 2016-08-07 14:24 | disposition home or self-care (01) ==
LOC: JP.ED 08:31
DX: R11.10 Vomiting, unspecified (principal); F12.10 Cannabis abuse, uncomplicated; F17.210 Nicotine dependence, cigarettes, uncomplicated; F41.9 Anxiety disorder, unspecified; F32.9 Major depressive disorder, single episode, unspecified; Z79.899 Other long term (current) drug therapy
CPT/HCPCS: 36415; 80053; 80305; 81001; 85025; 96361; 96374; 99284; J2405; J7040; J7050

== ENCOUNTER 2016-08-08 09:38 | Inpatient (IN) | payer MEDICAID ==
[2016-08-08] MEDS ORDERED: Ondansetron 4 MG/2 ML SDV IVPUSH ONE ×2 (10:51→17:15)
--- NOTE | 2016-08-08 10:55 | EDM.PDOC ---
[id number] Complaint: VOMITING SINCE SAT,ABDOMINAL PAIN Time Seen by Provider: 08/08/16 10:53 Source of Information: Reports: Patient, Family History Limitations: Reports: No Limitations - History of Present Illness INITIAL COMMENTS - FREE TEXT/NARRATIVE: pt has not held anything down since he left the ER. He was not able to find the zoforan that was previously perscribed. Onset: Gradual Duration: Day(s): Location: Reports: Abdomen Associated Symptoms: Reports: Nausea/Vomiting, Other (pt was seen yesterday. ) Abdominal Pain Score (Numeric/FACES): 1 - Related Data Allergies Allergy/AdvReac Type Severity Reaction Status Date / Time No Known Allergies Allergy Verified 09/26/15 20:28 Home Meds: Home Meds Lurasidone [Latuda] 40 mg PO DAILY 07/10/16 [History] Nystatin [Mycostatin] 5 ml PO QID #240 ml 07/13/16 [Rx] Pantoprazole [ProTONIX] 40 mg PO BIDAC #30 tab.cr 07/13/16 [Rx] Sucralfate [Carafate] 1 gm PO QIDACANDBED #120 tablet 07/13/16 [Rx] Past Medical History - Past Health History Medical/Surgical History: Denies Medical/Surgical History Gastrointestinal History: Reports: Gastritis Other Gastrointestinal History: EGD Musculoskeletal History: Reports: Fracture Neurological History: Reports: Concussion Psychiatric History: Reports: Anxiety, Depression, Hallucinations, Psych Hospitalization(s), Schizophrenia, Suicidal Ideation - Infectious Disease History Infectious Disease History: Reports: Chicken Pox - Past Surgical History GI Surgical History: Reports: EGD Social & Family History - Tobacco Use Smoking Status *Q: Current Every Day Smoker Years of Tobacco use: 6 Packs/Tins Daily: 0.5 Used Tobacco, but Quit: No Second Hand Smoke Exposure: Yes - Caffeine Use Caffeine Use: Reports: Soda Caffeine Use Comment: 2-3/day - Alcohol Use Days Per Week of Alcohol Use: 0 - Recreational Drug Use Recreational Drug Use: Yes Drug Use in Last 12 Months: Yes Recreational Drug Type: Reports: Marijuana/Hashish Recreational Drug Use Frequency: Weekly Recreational Drug Last Use: 10/28/13 ED ROS GENERAL - Review of Systems Review Of Systems: See Below Constitutional: Reports: No Symptoms HEENT: Reports: Other (pt has a very sore throat from vomiting. ) Respiratory: Reports: No Symptoms Cardiovascular: Reports: No Symptoms Endocrine: Reports: No Symptoms GI/Abdominal: Reports: Nausea, Vomiting, Other ( thought to be related to pot use. ) : Reports: No Symptoms Musculoskeletal: Reports: No Symptoms Skin: Reports: No Symptoms Neurological: Reports: No Symptoms ED EXAM, GI/ABD - Physical Exam Exam: See Below Text/Narrative:: pt arrived ststing that he hs not been able to hold anything down since he left the hosp yesterday. Exam Limited By: No Limitations General Appearance: Alert, Moderate Distress Eyes: Bilateral: Normal Appearance, EOMI Ears: Normal TMs Nose: Normal Inspection Throat/Mouth: Normal Inspection Head: Atraumatic Neck: Normal Inspection Respiratory/Chest: No Respiratory Distress Cardiovascular: Regular Rate, Rhythm, Tachycardia GI/Abdominal: Soft, Non-Tender, Other ( generalized muscle tenderness. ) Rectal (Males) Exam: Deferred Back Exam: Normal Inspection Extremities: Normal Inspection Neurological: Alert, Oriented, Normal Cognition Psychiatric: Anxious Course - Vital Signs Last Recorded V/S: Last Vital Signs Temp 37.5 C 08/09/16 06:48 Pulse 65 08/09/16 06:48 Resp 16 08/09/16 06:48 BP 115/82 08/09/16 06:48 Pulse Ox 96 08/09/16 06:48 - Orders/Labs/Meds Orders: Medication Orders Potassium Chloride/Dextrose/Sod Cl (D5 Ns With 20 Meq Kcl) 1,000 mls @ 100 mls/ hr IV ASDIRECTED MAYLIN Last Admin: 08/09/16 01:20 Dose: 100 mls/hr Lurasidone HCl (Latuda) 40 mg PO DAILY MAYLIN Nystatin (Mycostatin) 5 ml PO QID MAYLIN Last Admin: 08/09/16 05:06 Dose: 5 ml Ondansetron HCl (Zofran) 4 mg IVPUSH Q4H PRN PRN Reason: Nausea/Vomiting Last Admin: 08/09/16 05:05 Dose: 4 mg Admin: 08/08/16 23:44 Dose: 4 mg Pantoprazole Sodium (Protonix) 40 mg PO BIDAC [facility] Sucralfate (Carafate) 1 gm PO QIDACANDBED [facility] Labs: Laboratory Tests 08/08/16 08/08/16 08/08/16 Range/Units 00:10 00:10 10:40 WBC (4.5-11.0) K/uL RBC (4.30-5.90) M/uL Hgb (12.0-15.0) g/dL Hct (40.0-54.0) % MCV (80-98) fL MCH (27-31) pg MCHC (32-36) % Plt Count (150-400) K/uL Neut % (Auto) (36-66) % Lymph % (Auto) (24-44) % [place] % (Auto) (2-6) % Eos % (Auto) (2-4) % Baso % (Auto) (0-1) % Sodium 141 (140-148) mmol/L Potassium 3.5 L (3.6-5.2) mmol/L Chloride 104 (100-108) mmol/L Carbon Dioxide 29 (21-32) mmol/L Anion Gap 11.5 (5.0-14.0) mmol/L BUN 10 (7-18) mg/dL Creatinine 0.9 (0.8-1.3) mg/dL Est Cr Clr Drug Dosing 132.47 mL/min Estimated GFR (MDRD) > 60 (>60) Glucose 106 (74-106) mg/dL Calcium 8.9 (8.5-10.1) mg/dL Amylase 44 (25-115) U/L Lipase 243 (73-393) U/L // Range/Units 10:40 WBC 9.8 (4.5-11.0) K/uL RBC 4.56 (4.30-5.90) M/uL Hgb 14.9 D (12.0-15.0) g/dL Hct 42.1 (40.0-54.0) % MCV 92 (80-98) fL MCH 33 H (27-31) pg MCHC 35 (32-36) % Plt Count 261 (150-400) K/uL Neut % (Auto) 67 H (36-66) % Lymph % (Auto) 21 L (24-44) % [place] % (Auto) 11 H (2-6) % Eos % (Auto) 0 L (2-4) % Baso % (Auto) 1 (0-1) % Sodium (140-148) mmol/L Potassium (3.6-5.2) mmol/L Chloride (100-108) mmol/L Carbon Dioxide (21-32) mmol/L Anion Gap (5.0-14.0) mmol/L BUN (7-18) mg/dL Creatinine (0.8-1.3) mg/dL Est Cr Clr Drug Dosing mL/min Estimated GFR (MDRD) (>60) Glucose (74-106) mg/dL Calcium (8.5-10.1) mg/dL Amylase (25-115) U/L Lipase (73-393) U/L Meds: Medications Generic Name Dose Route Start Last Admin Trade Name Freq PRN Reason Stop Dose Admin Potassium Chloride/Dextrose/Sod Cl 1,000 mls @ 100 mls/hr 08/08/16 23:45 01:20 D5 Ns With 20 Meq Kcl IV 100 mls/hr ASDIRECTED MAYLIN Administration Lurasidone HCl 40 mg 08/09/16 09:00 Latuda PO DAILY MAYLIN Nystatin 5 ml 08/09/16 06:00 08/09/16 05:06 Mycostatin PO 5 ml QID MAYLIN Administration Ondansetron HCl 4 mg 08/08/16 23:46 08/09/16 05:05 Zofran IVPUSH 4 mg Q4H PRN Administration Nausea/Vomiting Pantoprazole Sodium 40 mg 08/09/16 07:30 Protonix PO BIDAC MAYLIN Sucralfate 1 gm 08/09/16 07:00 Carafate PO QIDACANDBED MAYLIN Discontinued Medications Generic Name Dose Route Start Last Admin Trade Name Flex PRN Reason Stop Dose Admin Sodium Chloride 1,000 mls @ 999 mls/hr 08/08/16 11:00 08/08/16 11:11 Normal Saline IV 999 mls/hr ASDIRECTED MAYLIN Administration Sodium Chloride 1,000 mls @ 999 mls/hr 08/08/16 12:45 08/08/16 13:19 Normal Saline IV 999 mls/hr ASDIRECTED MAYLIN Administration Sodium Chloride 1,000 mls @ 250 mls/hr 08/08/16 14:45 08/08/16 22:57 Normal Saline IV 250 mls/hr ASDIRECTED MAYLIN Administration Sodium Chloride 1,000 mls @ 500 mls/hr 08/08/16 18:15 08/08/16 20:51 Normal Saline IV 500 mls/hr ASDIRECTED MAYLIN Administration Sodium Chloride 76 mls @ 3.8 mls/sec 08/09/16 00:33 08/09/16 00:46 Normal Saline IV 08/09/16 00:34 3.8 mls/sec ASDIRECTED STA Administration Iopamidol 126 ml 08/09/16 00:33 08/09/16 00:45 Isovue-300 (61%) IV 08/09/16 00:34 150 ml . DIRECTED STA Administration Lorazepam 0.5 mg 08/08/16 17:15 08/08/16 17:25 Ativan IVPUSH 08/08/16 17:16 0.5 mg ONETIME ONE Administration Ondansetron HCl 4 mg 08/08/16 10:51 08/08/16 11:12 Zofran IVPUSH 08/08/16 10:52 4 mg ONETIME ONE Administration Ondansetron HCl 4 mg 08/08/16 17:15 08/08/16 17:27 Zofran IVPUSH 08/08/16 17:16 4 mg ONETIME ONE Administration Ondansetron HCl 4 mg 08/08/16 19:00 08/08/16 19:54 Zofran IVPUSH 4 mg Q6H MAYLIN Administration Ondansetron HCl Confirm 08/08/16 23:44 08/09/16 01:26 Zofran Administered 08/08/16 23:45 Not Given Dose 4 mg .ROUTE .STK-MED ONE Phenol 0 ml 08/08/16 17:45 08/08/16 17:32 Phenaseptic Liquid PO 08/08/16 17:46 2 spray ASDIRECTED ONE Administration - Re-Assessments/Exams Free Text/Narrative Re-Assessment/Exam: 08/08/16 17:20 pt has been given 3 liters of fluid. He has had ativan and zoforan and continues to vomit. He feels he can not handle this at home. Departure - Departure Time of Disposition: 18:36 Disposition: Admitted As Inpatient 65 Condition: Fair Clinical Impression: Cannabinoid hyperemesis syndrome - Discharge Information
[2016-08-08] MEDS ORDERED: Sodium Chloride 0.9% 1,000 ML IV SCH ×2 (11:00→12:45)
[2016-08-08] MEDS: Sodium Chloride 0.9% 1,000 ML IV SCH ×4 (14:35→22:57)
[2016-08-08] MEDS ORDERED: Phenol/Sodium Phenolate Mouthwash 180 ML Bottle PO ONE ×2 (17:13→17:45)
[2016-08-08] MEDS ORDERED: LORazepam 2 MG/ML MDV IVPUSH ONE (17:15)
[2016-08-08] MEDS ORDERED: Ondansetron 4 MG/2 ML SDV IVPUSH SCH (19:00)
[2016-08-08] MEDS ORDERED: Ondansetron 4 MG/2 ML SDV ONE (23:44)
[2016-08-08] MEDS: Ondansetron 4 MG/2 ML SDV IVPUSH PRN (23:44)
--- NOTE | 2016-08-08 23:57 | PCM.HP ---
H&P History of Present Illness - General Date of Service: 08/08/16 Admit Problem/Dx: Admission Diagnosis/Problem Admission Diagnosis/Problem Vomiting Source of Information: Patient - History of Present Illness Initial Comments - Free Text/Narative: Begin to vomit with N. 3 days ago and unaable to hold down food or liquid. He was in the hospital 3 weeks ago with the same problem and was found to have gastritis and started on protonix, carafate and anti fungal meds with no significant improvement. He has continued to have abd. pain and became worse Sat. night and this is Sunday night. He has had diarrhea this evening.. He has been passing gas. His abd pain is generalized and worse now in the lower left abd. He uses THC 3x/week. Onset of Symptoms: Reports: Gradual Duration of Symptoms: Reports: Day(s): Location: Reports: Abdomen Improves with: Reports: None Worsens with: Reports: Eating Associated Symptoms: Reports: Fever/Chills, Loss of Appetite, Nausea/Vomiting, Weakness Abdominal Pain Score (Numeric/FACES): 6 - Related Data Allergies/Adverse Reactions: Allergies Allergy/AdvReac Type Severity Reaction Status Date / Time No Known Allergies Allergy Verified 09/26/15 20:28 Home Medications: Home Meds Lurasidone [Latuda] 40 mg PO DAILY 07/10/16 [History] Nystatin [Mycostatin] 5 ml PO QID #240 ml 07/13/16 [Rx] Pantoprazole [ProTONIX] 40 mg PO BIDAC #30 tab.cr 07/13/16 [Rx] Sucralfate [Carafate] 1 gm PO QIDACANDBED #120 tablet 07/13/16 [Rx] Past Medical History - Past Health History Medical/Surgical History: Denies Medical/Surgical History Gastrointestinal History: Reports: Gastritis Other Gastrointestinal History: EGD Musculoskeletal History: Reports: Fracture Neurological History: Reports: Concussion Other Neuro History: from playing hockey Psychiatric History: Reports: Anxiety, Depression, Hallucinations, Psych Hospitalization(s), Schizophrenia, Suicidal Ideation - Infectious Disease History Infectious Disease History: Reports: Chicken Pox - Past Surgical History GI Surgical History: Reports: EGD Musculoskeletal Surgical History: Reports: Other (See Below) Other Musculoskeletal Surgeries/Procedures:: right wrist--glass removed Social & Family History - Tobacco Use Smoking Status *Q: Current Every Day Smoker Years of Tobacco use: 8 Packs/Tins Daily: 0.5 Used Tobacco, but Quit: No Second Hand Smoke Exposure: No - Caffeine Use Caffeine Use: Reports: Soda Caffeine Use Comment: 2-3/day - Alcohol Use Days Per Week of Alcohol Use: 0 - Recreational Drug Use Recreational Drug Use: Yes Drug Use in Last 12 Months: Yes Recreational Drug Type: Reports: Marijuana/Hashish Recreational Drug Use Frequency: Weekly Recreational Drug Last Use: 08-04-16 H&P Review of Systems - Review of Systems: Review Of Systems: See Below General: Reports: Fever, Chills HEENT: Reports: Sore Throat Pulmonary: Reports: No Symptoms Cardiovascular: Reports: No Symptoms Gastrointestinal: Reports: Abdominal Pain, Diarrhea, Decreased Appetite, Distension, Nausea Genitourinary: Reports: Burning Musculoskeletal: Reports: No Symptoms Skin: Reports: No Symptoms Psychiatric: Reports: Anxiety Neurological: Reports: Weakness Exam - Exam Exam: See Below - Vital Signs Vital Signs: Last Vital Signs Temp 100.2 F 08/08/16 23:17 Pulse 70 08/08/16 23:17 Resp 15 08/08/16 23:17 BP 106/76 08/08/16 23:17 Pulse Ox 96 08/08/16 23:17 Weight: 185 lb - Patient Data Result Diagrams: 08/09/16 06:04 08/09/16 06:04 *Q Meaningful Use (ADM) - VTE *Q VTE Criteria *Q: - Stroke *Q Stroke Criteria *Q: - AMI *Q AMI Criteria *Q: Problem List Initiated/Reviewed/Updated: Yes Orders Last 24hrs: Active Orders 24 hr Category Date Time Status Patient Status [ADT] Routine ADT 08/08/16 23:38 Ordered Ambulate [RC] QID Care 08/08/16 23:38 Ordered Communication Order [RC] Click to Edit Care 08/08/16 18:53 Active Height and Weight [RC] DAILY Care 08/08/16 23:38 Ordered Intake and Output [RC] QSHIFT Care 08/08/16 23:40 Ordered Oxygen Therapy [RC] PRN Care 08/08/16 23:38 Ordered Up to Chair [RC] QID Care 08/08/16 23:38 Ordered VTE/DVT Education [RC] Per Unit Routine Care 08/08/16 23:38 Ordered Vital Signs [RC] Q4H Care 08/08/16 23:38 Ordered Clear Liquid Diet [DIET] Diet 08/08/16 Dinner Active Nothing per Oral Now Diet [DIET] Diet 08/09/16 Breakfast Ordered Abdomen w Cont [CT] Routine Exams 08/08/16 23:47 Ordered Chest 2V [CR] AM Exams 08/09/16 05:11 Ordered AMYLASE [CHEM] Routine Lab 08/08/16 23:44 Ordered BASIC METABOLIC PANEL,BMP [CHEM] AM Lab 08/09/16 05:11 Ordered CBC W/O DIFF,HEMOGRAM [HEME] AM Lab 08/09/16 05:11 Ordered LIPASE [CHEM] Routine Lab 08/08/16 23:45 Ordered Dextrose 5%-Normal Saline with KCl 20 mEq @ 100 mL/Hr ( Med 08/08/16 23:45 Ordered 1000 mL) Dextrose 5%-0.9% NaCl with KCl [D5 NS with 20 mEq KCl] 1,000 ml IV ASDIRECTED Lurasidone [Latuda] Med 08/09/16 09:00 Ordered 40 mg PO DAILY Nystatin [Mycostatin] Med 08/09/16 06:00 Ordered 5 ml PO QID Ondansetron [Zofran] Med 08/08/16 23:46 Ordered 4 mg IVPUSH Q4H PRN Pantoprazole [ProTONIX] Med 08/09/16 07:30 Ordered 40 mg PO BIDAC Sucralfate [Carafate] Med 08/09/16 07:00 Ordered 1 gm PO QIDACANDBED Resuscitation Status Routine Resus Stat 08/08/16 23:38 Ordered Medication Orders Potassium Chloride/Dextrose/Sod Cl (D5 Ns With 20 Meq Kcl) 1,000 mls @ 100 mls/ hr IV ASDIRECTED MAYLIN Lurasidone HCl (Latuda) 40 mg PO DAILY MAYLIN Nystatin (Mycostatin) 5 ml PO QID MAYLIN Ondansetron HCl (Zofran) 4 mg IVPUSH Q4H PRN PRN Reason: Nausea/Vomiting Pantoprazole Sodium (Protonix) 40 mg PO BIDAC MAYLIN Sucralfate (Carafate) 1 gm PO QIDACANDBED MAYLIN Assessment/Plan Comment:: Assessment/plan: #1. Nausea and Vomiting. Will do a CT of the Abd and CXR. I feel that the history of gastritis does not answer the question of why he is sick at the present time. It could be due to withdrawl of THC after getting the history he was pain free until he started to use THC. #2. Elevated temp. Will do blood cultures. #3. Schizophrenia: Will continue with meds.
[2016-08-09] MEDS ORDERED: Iopamidol 612 MG/ML 150 ML Bottle IV STA (00:33)
[2016-08-09] MEDS: Dextrose 5%-0.9% NaCl with KCl 1,000 ML IV SCH ×2 (01:20→11:34)
[2016-08-09] MEDS: Ondansetron 4 MG/2 ML SDV IVPUSH PRN ×4 (05:05→18:23)
[2016-08-09] MEDS: Nystatin Susp 100,000 Unit/ML 5 ML UD Cup PO SCH ×4 (05:06→21:33)
--- NOTE | 2016-08-09 09:16 | CR ---
Chest 2V HISTORY: Cough COMPARISON: Chest x-ray 08/08/2010. FINDINGS: Cardiac size and pulmonary vessels normal. There are no infiltrates or effusions. No pneum othorax. The osseous structures appear normal. IMPRESSION: No acute pulmonary disease.
[2016-08-09] MEDS: Pantoprazole 40 MG Tab.CR PO SCH ×2 (10:04→16:46)
[2016-08-09] MEDS: Sucralfate 1 GM Tab PO SCH ×4 (10:04→19:51)
[2016-08-09] MEDS: Potassium Chloride 20 MEQ, Lidocaine 1% 2 ML in Sodium Chloride 0.9% 100 ML IV SCH ×4 (10:05→16:48)
[2016-08-09] MEDS: Lurasidone 40 MG Tab PO SCH (10:05)
--- NOTE | 2016-08-09 17:31 | PCM.PN ---
- General Info Date of Service: 08/09/16 Subjective Update: Feeling better and able to eat a little amount of food. His abd. pain has improved. - Review of Systems General: Reports: Weakness HEENT: Reports: no symptoms Pulmonary: Reports: no symptoms Cardiovascular: Reports: No Symptoms Gastrointestinal: Reports: Abdominal pain Genitourinary: Reports: no symptoms Musculoskeletal: Reports: no symptoms Skin: Reports: no symptoms Neurological: Reports: No Symptoms Psychiatric: Reports: no symptoms - Patient Data Vitals - most recent: Last Vital Signs Temp 99.3 F 08/09/16 14:28 Pulse 60 08/09/16 14:28 Resp 16 08/09/16 14:28 BP 93/61 08/09/16 14:28 Pulse Ox 95 08/09/16 14:28 Weight - most recent: 184 lb 15.485 oz I&O - last 24 hours: Intake & Output 08/09/16 08/09/16 08/09/16 06:59 14:59 22:59 Intake Total 2664 385 100 Output Total 2024 1840 575 Balance 226 -1600 -294 Lab Results last 24 hrs: Laboratory Results - last 24 hr 08/09/16 08/09/16 Range/Units 06:04 06:04 WBC 9.3 (4.5-11.0) K/uL RBC 4.34 (4.30-5.90) M/uL Hgb 14.1 (12.0-15.0) g/dL Hct 39.6 L (40.0-54.0) % MCV 91 (80-98) fL MCH 33 H (27-31) pg MCHC 36 (32-36) % Plt Count 238 (150-400) K/uL Sodium 139 L (140-148) mmol/L Potassium 3.0 L (3.6-5.2) mmol/L Chloride 103 (100-108) mmol/L Carbon Dioxide 25 (21-32) mmol/L Anion Gap 14.0 (5.0-14.0) mmol/L BUN 5 L (7-18) mg/dL Creatinine 0.9 (0.8-1.3) mg/dL Est Cr Clr Drug Dosing 136.52 mL/min Estimated GFR (MDRD) > 60 (>60) Glucose 93 (74-106) mg/dL Calcium 8.5 (8.5-10.1) mg/dL Med Orders - Current: Current Medications Potassium Chloride/Dextrose/Sod Cl (D5 Ns With 20 Meq Kcl) 1,000 mls @ 100 mls/ hr IV ASDIRECTED [facility] Last Admin: 08/09/16 11:34 Dose: 100 mls/hr Potassium Chloride 20 meq/Lidocaine HCl 2 ml/ Sodium Chloride 112 mls @ 55 mls/ hr IV Q2H [facility] Stop: 08/09/16 17:59 Last Admin: 08/09/16 16:48 Dose: 55 mls/hr Lurasidone HCl (Latuda) 40 mg PO DAILY [facility] Last Admin: 08/09/16 10:05 Dose: 40 mg Nystatin (Mycostatin) 5 ml PO QID [facility] Last Admin: 08/09/16 16:46 Dose: 5 ml Ondansetron HCl (Zofran) 4 mg IVPUSH Q4H PRN PRN Reason: Nausea/Vomiting Last Admin: 08/09/16 13:59 Dose: 4 mg Pantoprazole Sodium (Protonix) 40 mg PO BIDAC [facility] Last Admin: 08/09/16 16:46 Dose: 40 mg Sucralfate (Carafate) 1 gm PO QIDACANDBED [facility] Last Admin: 08/09/16 16:47 Dose: 1 gm Discontinued Medications Sodium Chloride (Normal Saline) 1,000 mls @ 999 mls/hr IV ASDIRECTED [facility] Last Admin: 08/08/16 11:11 Dose: 999 mls/hr Sodium Chloride (Normal Saline) 1,000 mls @ 999 mls/hr IV ASDIRECTED [facility] Last Admin: 08/08/16 13:19 Dose: 999 mls/hr Sodium Chloride (Normal Saline) 1,000 mls @ 250 mls/hr IV ASDIRECTED [facility] Last Admin: 08/08/16 22:57 Dose: 250 mls/hr Sodium Chloride (Normal Saline) 1,000 mls @ 500 mls/hr IV ASDIRECTED [facility] Last Admin: 08/08/16 20:51 Dose: 500 mls/hr Sodium Chloride (Normal Saline) 76 mls @ 3.8 mls/sec IV ASDIRECTED [facility] Stop: 08/09/16 00:34 Last Admin: 08/09/16 00:46 Dose: 3.8 mls/sec Iopamidol (Isovue-300 (61%)) 126 ml IV . DIRECTED [facility] Stop: 08/09/16 00:34 Last Admin: 08/09/16 00:45 Dose: 150 ml Lorazepam (Ativan) 0.5 mg IVPUSH ONETIME ONE Stop: 08/08/16 17:16 Last Admin: 08/08/16 17:25 Dose: 0.5 mg Ondansetron HCl (Zofran) 4 mg IVPUSH ONETIME ONE Stop: 08/08/16 10:52 Last Admin: 08/08/16 11:12 Dose: 4 mg Ondansetron HCl (Zofran) 4 mg IVPUSH ONETIME ONE Stop: 08/08/16 17:16 Last Admin: 08/08/16 17:27 Dose: 4 mg Ondansetron HCl (Zofran) 4 mg IVPUSH Q6H [facility] Last Admin: 08/08/16 19:54 Dose: 4 mg Ondansetron HCl (Zofran) Confirm Administered Dose 4 mg .ROUTE .STK-MED ONE Stop: 08/08/16 23:45 Last Admin: 08/09/16 01:26 Dose: Not Given Phenol (Phenaseptic Liquid) 0 ml PO ASDIRECTED ONE Stop: 08/08/16 17:46 Last Admin: 08/08/16 17:32 Dose: 2 spray - Exam General: alert, oriented HEENT: Pupils equal, Pupils reactive, EOMI, Mucous membr. moist/pink Lungs: Clear to auscultation, Normal respiratory effort Cardiovascular: Regular Rate, Regular Rhythm Abdomen: tenderness Back Exam: Normal Inspection, Full Range of Motion Peripheral Pulses: 1+: Radial (L), Radial (R) Skin: warm, dry, intact Psy/Mental Status: alert, normal affect, normal mood - Problem List Review Problem List Initiated/Reviewed/Updated: Yes - My Orders Last 24 Hours: My Active Orders 08/08/16 23:45 Dextrose 5%-0.9% NaCl with KCl [D5 NS with 20 mEq KCl] 1,000 ml IV ASDIRECTED 08/08/16 23:46 Ondansetron [Zofran] 4 mg IVPUSH Q4H PRN 08/09/16 00:08 Blood Culture x2 Reflex Set [OM.PC] Urgent 08/09/16 00:10 Abdomen Pelvis w Cont [CT] Routine CULTURE BLOOD [BC] Urgent 08/09/16 00:15 CULTURE BLOOD [BC] Urgent 08/09/16 06:00 Nystatin [Mycostatin] 5 ml PO QID 08/09/16 07:00 Sucralfate [Carafate] 1 gm PO QIDACANDBED 08/09/16 07:30 Pantoprazole [ProTONIX] 40 mg PO BIDAC 08/09/16 09:00 Lurasidone [Latuda] 40 mg PO DAILY 08/09/16 09:23 Communication Order [RC] ASDIRECTED 08/09/16 10:00 Potassium Chloride 20 meq Lidocaine 1% [Xylocaine 1%] 2 ml Sodium Chloride 0.9 % [Normal Saline] 100 ml IV Q2H 08/09/16 Dinner Regular Diet [DIET] 08/10/16 05:11 BASIC METABOLIC PANEL,BMP [CHEM] Routine - Plan Plan:: Assessment/plan: #1. Nausea and Vomiting. Will do a CT of the Abd and CXR. I feel that the history of gastritis does not answer the question of why he is sick at the present time. I do think it could be due to withdrawl of THC. #2. Elevated temp. blood cultures reports pending. #3. Schizophrenia: Will continue with meds.
[2016-08-10] MEDS: Nystatin Susp 100,000 Unit/ML 5 ML UD Cup PO SCH (05:39)
[2016-08-10 07:31] VITALS: BP 103/70
[2016-08-10] MEDS: Lurasidone 40 MG Tab PO SCH ×2 (07:42→08:01)
[2016-08-10] MEDS: Sucralfate 1 GM Tab PO SCH (07:42)
[2016-08-10] MEDS: Pantoprazole 40 MG Tab.CR PO SCH (07:42)
--- NOTE | 2016-08-10 08:28 | PCM.PN ---
- General Info Date of Service: 08/10/16 Functional Status: Reports: pain controlled - Review of Systems General: Reports: No Symptoms HEENT: Reports: no symptoms Pulmonary: Reports: no symptoms Cardiovascular: Reports: No Symptoms Gastrointestinal: Reports: No symptoms Genitourinary: Reports: no symptoms Musculoskeletal: Reports: no symptoms Skin: Reports: no symptoms Neurological: Reports: No Symptoms Psychiatric: Reports: no symptoms - Patient Data Vitals - most recent: Last Vital Signs Temp 99.5 F 08/10/16 07:29 Pulse 63 08/10/16 07:29 Resp 18 08/10/16 07:29 BP 103/70 08/10/16 07:29 Pulse Ox 94 L 08/10/16 07:29 Weight - most recent: 184 lb 15.485 oz I&O - last 24 hours: Intake & Output 08/09/16 08/10/16 08/10/16 22:59 06:59 14:59 Intake Total 100 1440 Output Total 1100 Balance -1000 1440 Lab Results last 24 hrs: Laboratory Results - last 24 hr 08/10/16 Range/Units 04:45 Sodium 143 (140-148) mmol/L Potassium 3.6 (3.6-5.2) mmol/L Chloride 104 (100-108) mmol/L Carbon Dioxide 30 (21-32) mmol/L Anion Gap 9.3 (5.0-14.0) mmol/L BUN 6 L (7-18) mg/dL Creatinine 1.0 (0.8-1.3) mg/dL Est Cr Clr Drug Dosing 123.04 mL/min Estimated GFR (MDRD) > 60 (>60) Glucose 85 (74-106) mg/dL Calcium 8.8 (8.5-10.1) mg/dL Nick Results last 24 hrs: Microbiology 08/09/16 00:15 Aerobic Blood Culture - Preliminary Blood - Arm, Right NO GROWTH AFTER 1 DAY Anaerobic Blood Culture - Preliminary NO GROWTH AFTER 1 DAY 08/09/16 00:10 Aerobic Blood Culture - Preliminary Blood - Arm, Left NO GROWTH AFTER 1 DAY Anaerobic Blood Culture - Preliminary NO GROWTH AFTER 1 DAY Med Orders - Current: Current Medications Potassium Chloride/Dextrose/Sod Cl (D5 Ns With 20 Meq Kcl) 1,000 mls @ 75 mls/ hr IV ASDIRECTED [facility] Last Admin: 08/09/16 11:34 Dose: 100 mls/hr Lurasidone HCl (Latuda) 40 mg PO DAILY [facility] Last Admin: 08/10/16 08:01 Dose: Not Given Nystatin (Mycostatin) 5 ml PO QID [facility] Last Admin: 08/10/16 05:39 Dose: 5 ml Ondansetron HCl (Zofran) 4 mg IVPUSH Q4H PRN PRN Reason: Nausea/Vomiting Last Admin: 08/09/16 18:23 Dose: 4 mg Pantoprazole Sodium (Protonix) 40 mg PO BIDAC [facility] Last Admin: 08/10/16 07:42 Dose: 40 mg Sucralfate (Carafate) 1 gm PO QIDACANDBED [facility] Last Admin: 08/10/16 07:42 Dose: 1 gm Discontinued Medications Sodium Chloride (Normal Saline) 1,000 mls @ 999 mls/hr IV ASDIRECTED [facility] Last Admin: 08/08/16 11:11 Dose: 999 mls/hr Sodium Chloride (Normal Saline) 1,000 mls @ 999 mls/hr IV ASDIRECTED [facility] Last Admin: 08/08/16 13:19 Dose: 999 mls/hr Sodium Chloride (Normal Saline) 1,000 mls @ 250 mls/hr IV ASDIRECTED [facility] Last Admin: 08/08/16 22:57 Dose: 250 mls/hr Sodium Chloride (Normal Saline) 1,000 mls @ 500 mls/hr IV ASDIRECTED [facility] Last Admin: 08/08/16 20:51 Dose: 500 mls/hr Sodium Chloride (Normal Saline) 76 mls @ 3.8 mls/sec IV ASDIRECTED [facility] Stop: 08/09/16 00:34 Last Admin: 08/09/16 00:46 Dose: 3.8 mls/sec Potassium Chloride 20 meq/Lidocaine HCl 2 ml/ Sodium Chloride 112 mls @ 55 mls/ hr IV Q2H [facility] Stop: 08/09/16 17:59 Last Admin: 08/09/16 16:48 Dose: 55 mls/hr Iopamidol (Isovue-300 (61%)) 126 ml IV . DIRECTED [facility] Stop: 08/09/16 00:34 Last Admin: 08/09/16 00:45 Dose: 150 ml Lorazepam (Ativan) 0.5 mg IVPUSH ONETIME ONE Stop: 08/08/16 17:16 Last Admin: 08/08/16 17:25 Dose: 0.5 mg Ondansetron HCl (Zofran) 4 mg IVPUSH ONETIME ONE Stop: 08/08/16 10:52 Last Admin: 08/08/16 11:12 Dose: 4 mg Ondansetron HCl (Zofran) 4 mg IVPUSH ONETIME ONE Stop: 08/08/16 17:16 Last Admin: 08/08/16 17:27 Dose: 4 mg Ondansetron HCl (Zofran) 4 mg IVPUSH Q6H [facility] Last Admin: 08/08/16 19:54 Dose: 4 mg Ondansetron HCl (Zofran) Confirm Administered Dose 4 mg .ROUTE .STK-MED ONE Stop: 08/08/16 23:45 Last Admin: 08/09/16 01:26 Dose: Not Given Phenol (Phenaseptic Liquid) 0 ml PO ASDIRECTED ONE Stop: 08/08/16 17:46 Last Admin: 08/08/16 17:32 Dose: 2 spray - Exam General: alert, oriented HEENT: Pupils equal, Pupils reactive, EOMI, Mucous membr. moist/pink Neck: supple Lungs: Clear to auscultation, Normal respiratory effort Cardiovascular: Regular Rate, Regular Rhythm Abdomen: bowel sounds present, soft, no tenderness, no distension (Male) Exam: No Hernia, Normal Inspection, Normal Prostate, Circumcised Back Exam: Normal Inspection, Full Range of Motion Extremities: no edema Skin: warm, dry, intact Neurological: no new focal deficit Psy/Mental Status: alert, normal affect, normal mood - Problem List Review Problem List Initiated/Reviewed/Updated: Yes - My Orders Last 24 Hours: My Active Orders 08/09/16 07:30 Pantoprazole [ProTONIX] 40 mg PO BIDAC 08/09/16 09:00 Lurasidone [Latuda] 40 mg PO DAILY 08/09/16 09:23 Communication Order [RC] ASDIRECTED 08/09/16 17:47 Convert IV to Saline Lock [OM.PC] Routine 08/09/16 Dinner Regular Diet [DIET] - Plan Plan:: Assessment/plan: #1. Nausea and Vomiting. resolved. #2. Elevated temp. 99.5. Will follow as an out pt. #3. Schizophrenia: Will continue with meds.
--- NOTE | 2016-08-10 08:37 | PCM.DCSUM1 ---
Discharge Summary - Hospital Course HPI Initial Comments: Begin to vomit with N. 3 days before admission and unable to hold down food or liquid. He was in the hospital 3 weeks ago with the same problem and was found to have gastritis and started on protonix, carafate and anti fungal meds with no significant improvement. His abd. pain became worse and was admitted to the hospital. He had diarrhea he had been passing gas. His abd pain was generalized and worse in the lower left abd. He used THC 3x/week. The abd. pain started after he had started to use THC. - Discharge Data Discharge Date: 08/10/16 Discharge Disposition: Home, Self-Care 01 Condition: Good - Patient Summary/Data Hospital Course: He had a CT of the abd. which was neg. and blood work was all normal expect low potassium which was corrected with supplements of potassium. N and V was controlled with Zofran At the time of discharge he was feeling good without N or V and the abd. pain was resolved. - Patient Instructions Diet: Heart Healthy Diet Activity: As Tolerated Notify Provider of: Fever, Nausea and/or Vomiting - Discharge Plan Home Medications: Home Meds Lurasidone [Latuda] 40 mg PO DAILY 07/10/16 [History] Nystatin [Mycostatin] 5 ml PO QID #240 ml 07/13/16 [Rx] Pantoprazole [ProTONIX] 40 mg PO BIDAC #30 tab.cr 07/13/16 [Rx] Sucralfate [Carafate] 1 gm PO QIDACANDBED #120 tablet 07/13/16 [Rx] Patient Handouts: Smoking Cessation, Tips for Success Forms: ED Department Discharge Referrals: PCP,None [Primary Care Provider] - - Discharge Summary/Plan Comment Discharge Summary/Plan Comment: Assessment/Plan. Abd pain and N and V caused by THC. He was told he is allergic to THC and each time he uses the drug the reaction will be more severe. He continues to have Schizophrenia and encouraged him to get more envolved in an occupation to give meaning to life and a reason to live even- though he is disabled due to his mental illness. There is a job he can do. He will use Zofran if needed. Will see in the office in 1-2 weeks. - Patient Data Vitals - Most Recent: Last Vital Signs Temp 99.5 F 08/10/16 07:29 Pulse 63 08/10/16 07:29 Resp 18 08/10/16 07:29 BP 103/70 08/10/16 07:29 Pulse Ox 94 L 08/10/16 07:29 Weight - Most Recent: 184 lb 15.485 oz I&O - Last 24 hours: Intake & Output 08/09/16 08/10/16 08/10/16 22:59 06:59 14:59 Intake Total 100 1440 Output Total 1100 Balance -1000 1440 Lab Results - Last 24 hrs: Laboratory Results - last 24 hr 08/10/16 Range/Units 04:45 Sodium 143 (140-148) mmol/L Potassium 3.6 (3.6-5.2) mmol/L Chloride 104 (100-108) mmol/L Carbon Dioxide 30 (21-32) mmol/L Anion Gap 9.3 (5.0-14.0) mmol/L BUN 6 L (7-18) mg/dL Creatinine 1.0 (0.8-1.3) mg/dL Est Cr Clr Drug Dosing 123.04 mL/min Estimated GFR (MDRD) > 60 (>60) Glucose 85 (74-106) mg/dL Calcium 8.8 (8.5-10.1) mg/dL PHIL Results - Last 24 hrs: Microbiology 08/09/16 00:15 Aerobic Blood Culture - Preliminary Blood - Arm, Right NO GROWTH AFTER 1 DAY Anaerobic Blood Culture - Preliminary NO GROWTH AFTER 1 DAY 08/09/16 00:10 Aerobic Blood Culture - Preliminary Blood - Arm, Left NO GROWTH AFTER 1 DAY Anaerobic Blood Culture - Preliminary NO GROWTH AFTER 1 DAY Med Orders - Current: Current Medications Potassium Chloride/Dextrose/Sod Cl (D5 Ns With 20 Meq Kcl) 1,000 mls @ 75 mls/ hr IV ASDIRECTED [facility] Last Admin: 08/09/16 11:34 Dose: 100 mls/hr Lurasidone HCl (Latuda) 40 mg PO DAILY [facility] Last Admin: 08/10/16 08:01 Dose: Not Given Nystatin (Mycostatin) 5 ml PO QID [facility] Last Admin: 08/10/16 05:39 Dose: 5 ml Ondansetron HCl (Zofran) 4 mg IVPUSH Q4H PRN PRN Reason: Nausea/Vomiting Last Admin: 08/09/16 18:23 Dose: 4 mg Pantoprazole Sodium (Protonix) 40 mg PO BIDAC [facility] Last Admin: 08/10/16 07:42 Dose: 40 mg Sucralfate (Carafate) 1 gm PO QIDACANDBED [facility] Last Admin: 08/10/16 07:42 Dose: 1 gm Discontinued Medications Sodium Chloride (Normal Saline) 1,000 mls @ 999 mls/hr IV ASDIRECTED [facility] Last Admin: 08/08/16 11:11 Dose: 999 mls/hr Sodium Chloride (Normal Saline) 1,000 mls @ 999 mls/hr IV ASDIRECTED [facility] Last Admin: 08/08/16 13:19 Dose: 999 mls/hr Sodium Chloride (Normal Saline) 1,000 mls @ 250 mls/hr IV ASDIRECTED [facility] Last Admin: 08/08/16 22:57 Dose: 250 mls/hr Sodium Chloride (Normal Saline) 1,000 mls @ 500 mls/hr IV ASDIRECTED [facility] Last Admin: 08/08/16 20:51 Dose: 500 mls/hr Sodium Chloride (Normal Saline) 76 mls @ 3.8 mls/sec IV ASDIRECTED [facility] Stop: 08/09/16 00:34 Last Admin: 08/09/16 00:46 Dose: 3.8 mls/sec Potassium Chloride 20 meq/Lidocaine HCl 2 ml/ Sodium Chloride 112 mls @ 55 mls/ hr IV Q2H [facility] Stop: 08/09/16 17:59 Last Admin: 08/09/16 16:48 Dose: 55 mls/hr Iopamidol (Isovue-300 (61%)) 126 ml IV . DIRECTED [facility] Stop: 08/09/16 00:34 Last Admin: 08/09/16 00:45 Dose: 150 ml Lorazepam (Ativan) 0.5 mg IVPUSH ONETIME ONE Stop: 08/08/16 17:16 Last Admin: 08/08/16 17:25 Dose: 0.5 mg Ondansetron HCl (Zofran) 4 mg IVPUSH ONETIME ONE Stop: 08/08/16 10:52 Last Admin: 08/08/16 11:12 Dose: 4 mg Ondansetron HCl (Zofran) 4 mg IVPUSH ONETIME ONE Stop: 08/08/16 17:16 Last Admin: 08/08/16 17:27 Dose: 4 mg Ondansetron HCl (Zofran) 4 mg IVPUSH Q6H [facility] Last Admin: 08/08/16 19:54 Dose: 4 mg Ondansetron HCl (Zofran) Confirm Administered Dose 4 mg .ROUTE .STK-MED ONE Stop: 08/08/16 23:45 Last Admin: 08/09/16 01:26 Dose: Not Given Phenol (Phenaseptic Liquid) 0 ml PO ASDIRECTED ONE Stop: 08/08/16 17:46 Last Admin: 08/08/16 17:32 Dose: 2 spray *Q Meaningful Use (DIS) - VTE *Q VTE Criteria *Q: - Stroke *Q Stroke Criteria *Q: - AMI *Q AMI Criteria *Q:
== END 2016-08-10 09:39 | disposition home or self-care (01) | DRG 916 ==
LOC: JP.ED 09:38 → JP.MS 18:40 → OBSVTOIN 23:38
PROVIDERS: ADMIT Internal Medicine; ATTEND Internal Medicine
DX: T78.49XA Other allergy, initial encounter (principal); F12.90 Cannabis use, unspecified, uncomplicated; F20.9 Schizophrenia, unspecified; F17.210 Nicotine dependence, cigarettes, uncomplicated; R11.2 Nausea with vomiting, unspecified; R10.9 Unspecified abdominal pain
CPT/HCPCS: 36415; 71020; 71020-26; 74177; 80048; 82150; 83690; 85025; 85027; 87040; 96361; 96374; 96375; 96376; 99285-25; A9270-GY; J2060; J2405; J3480; J7030; J7040

== ENCOUNTER 2016-10-07 19:35 | Emergency (ER) | payer MEDICAID ==
[2016-10-07 19:51] VITALS: BP 146/88
[2016-10-07] MEDS ORDERED: Ondansetron 4 MG/2 ML SDV IVPUSH ONE (20:16)
[2016-10-07] MEDS ORDERED: Sodium Chloride 0.9% 10 ML Syringe FLUSH PRN (20:16)
[2016-10-07] MEDS ORDERED: Sodium Chloride 0.9% 1,000 ML IV SCH (20:30)
[2016-10-07] MEDS ORDERED: Prochlorperazine 10 MG in Sodium Chloride 0.9% 50 ML IV ONE (22:13)
[2016-10-07] MEDS ORDERED: diphenhydrAMINE 50 MG/ML SDV IVPUSH ONE (22:13)
--- NOTE | 2016-10-07 23:22 | EDM.PDOC ---
ED HPI GENERAL MEDICAL PROBLEM - General Chief Complaint: Gastrointestinal Problem Stated Complaint: STOMACH ACHE Time Seen by Provider: 10/07/16 19:51 Source of Information: Reports: Patient History Limitations: Reports: No Limitations - History of Present Illness INITIAL COMMENTS - FREE TEXT/NARRATIVE: + This patient complains of severe nausea and vomiting. It started this morning. The patient has a history of gastritis diagnosed by endoscopy but also a history of cannabis-induced cyclic vomiting. He does continue to smoke marijuana and says it's about every other day. He stopped his psych meds recently because they make him feel bad. He denies any alcohol intake. He's not taking any medications for nausea. - Related Data Allergies Allergy/AdvReac Type Severity Reaction Status Date / Time No Known Allergies Allergy Verified 09/26/15 20:28 Home Meds: Home Meds NK [No Known Home Meds] 10/07/16 [History] Past Medical History - Past Health History Medical/Surgical History: Denies Medical/Surgical History Gastrointestinal History: Reports: Gastritis Other Gastrointestinal History: EGD Musculoskeletal History: Reports: Fracture Neurological History: Reports: Concussion Other Neuro History: from playing hockey Psychiatric History: Reports: Anxiety, Depression, Hallucinations, Psych Hospitalization(s), Schizophrenia, Suicidal Ideation - Infectious Disease History Infectious Disease History: Reports: Chicken Pox - Past Surgical History GI Surgical History: Reports: EGD Other GI Surgeries/Procedures: 3 previous visits for hyperemasis 2nd to cantibus use Musculoskeletal Surgical History: Reports: Other (See Below) Other Musculoskeletal Surgeries/Procedures:: right wrist--glass removed Social & Family History - Tobacco Use Smoking Status *Q: Never Smoker Years of Tobacco use: 8 Packs/Tins Daily: 0.5 Used Tobacco, but Quit: No Second Hand Smoke Exposure: No - Caffeine Use Caffeine Use: Reports: Soda Caffeine Use Comment: 2-3/day - Alcohol Use Days Per Week of Alcohol Use: 0 - Recreational Drug Use Recreational Drug Use: Yes Drug Use in Last 12 Months: Yes Recreational Drug Type: Reports: Marijuana/Hashish Recreational Drug Use Frequency: Daily Recreational Drug Last Use: 08-04-16 ED ROS GENERAL - Review of Systems Review Of Systems: See Below (Resistive around the [) Constitutional: Reports: No Symptoms HEENT: Reports: No Symptoms Respiratory: Reports: No Symptoms Cardiovascular: Reports: No Symptoms Endocrine: Reports: No Symptoms GI/Abdominal: Reports: Vomiting : Reports: No Symptoms Musculoskeletal: Reports: No Symptoms Skin: Reports: No Symptoms Neurological: Reports: No Symptoms ED EXAM, GI/ABD - Physical Exam Exam: See Below Exam Limited By: No Limitations General Appearance: Alert, WD/WN, Moderate Distress Eyes: Bilateral: Normal Appearance Ears: Normal External Exam Nose: Normal Inspection Throat/Mouth: Normal Oropharynx Head: Atraumatic Neck: Normal Inspection Respiratory/Chest: No Respiratory Distress, Lungs Clear Cardiovascular: Regular Rate, Rhythm, No Murmur GI/Abdominal Exam: Soft, Non-Tender Extremities: Normal Inspection Neurological: Alert, Oriented Psychiatric: Normal Affect Skin Exam: Warm, Dry Course - Vital Signs Last Recorded V/S: Last Vital Signs Temp 38.0 C 10/07/16 19:49 Pulse 85 10/07/16 19:49 Resp 18 10/07/16 19:49 BP 146/88 H 10/07/16 19:49 Pulse Ox - Orders/Labs/Meds Orders: Active Orders 24 hr Category Date Time Status Sodium Chloride 0.9% [Normal Saline] 1,000 ml Med 10/07/16 20:30 Active IV ASDIRECTED Sodium Chloride 0.9% [Saline Flush] Med 10/07/16 20:16 Active 10 ml FLUSH ASDIRECTED PRN Saline Lock Insert [OM.PC] Urgent Oth 10/07/16 20:16 Ordered Medication Orders Sodium Chloride (Normal Saline) 1,000 mls @ 999 mls/hr IV ASDIRECTED MAYLIN Last Admin: 10/07/16 20:31 Dose: 999 mls/hr Sodium Chloride (Saline Flush) 10 ml FLUSH ASDIRECTED PRN PRN Reason: Keep Vein Open Last Admin: 10/07/16 20:31 Dose: 10 ml Labs: Laboratory Tests 10/07/16 10/07/16 10/07/16 Range/Units 20:28 20:28 21:52 WBC 11.9 H (4.5-11.0) K/uL RBC 5.38 (4.30-5.90) M/uL Hgb 17.4 H D (12.0-15.0) g/dL Hct 48.5 (40.0-54.0) % MCV 90 (80-98) fL MCH 32 H (27-31) pg MCHC 36 (32-36) % Plt Count 372 (150-400) K/uL Neut % (Auto) 89 H (36-66) % Lymph % (Auto) 7 L (24-44) % [place] % (Auto) 4 (2-6) % Eos % (Auto) 0 L (2-4) % Baso % (Auto) 0 (0-1) % Sodium 142 (140-148) mmol/L Potassium 3.6 (3.6-5.2) mmol/L Chloride 101 (100-108) mmol/L Carbon Dioxide 27 (21-32) mmol/L Anion Gap 14.1 H (5.0-14.0) mmol/L BUN 12 D (7-18) mg/dL Creatinine 1.4 H (0.8-1.3) mg/dL Est Cr Clr Drug Dosing 87.76 mL/min Estimated GFR (MDRD) > 60 (>60) Glucose 151 H (74-106) mg/dL Calcium 10.2 H D (8.5-10.1) mg/dL Total Bilirubin 0.8 (0.2-1.0) mg/dL AST 23 (15-37) U/L ALT 34 (12-78) U/L Alkaline Phosphatase 65 (46-116) U/L Total Protein 9.3 H (6.4-8.2) g/dL Albumin 5.1 H (3.4-5.0) g/dL Globulin 4.2 H (2.3-3.5) g/dL Albumin/Globulin Ratio 1.2 (1.2-2.2) Urine Opiates Screen Negative (NEGATIVE) Ur Oxycodone Screen Negative (NEGATIVE) Urine Methadone Screen Negative (NEGATIVE) Ur Propoxyphene Screen Negative (NEGATIVE) Ur Barbiturates Screen Negative (NEGATIVE) Ur Tricyclics Screen Negative (NEGATIVE) Ur Phencyclidine Scrn Negative (NEGATIVE) Ur Amphetamine Screen Negative (NEGATIVE) U Methamphetamines Scrn Negative (NEGATIVE) Urine MDMA Screen Negative (NEGATIVE) U Benzodiazepines Scrn Negative (NEGATIVE) U Cocaine Metab Screen Negative (NEGATIVE) U Marijuana (THC) Screen Positive H (NEGATIVE) Meds: Medications Generic Name Dose Route Start Last Admin Trade Name Freq PRN Reason Stop Dose Admin Sodium Chloride 1,000 mls @ 999 mls/hr 10/07/16 20:30 10/07/16 20:31 Normal Saline IV 999 mls/hr ASDIRECTED MAYLIN Administration Sodium Chloride 10 ml 10/07/16 20:16 10/07/16 20:31 Saline Flush FLUSH 10 ml ASDIRECTED PRN Administration Keep Vein Open Discontinued Medications Generic Name Dose Route Start Last Admin Trade Name Flex PRN Reason Stop Dose Admin Diphenhydramine HCl 25 mg 10/07/16 22:13 10/07/16 22:21 Benadryl IVPUSH 10/07/16 22:14 25 mg ONETIME ONE Administration Prochlorperazine Edisylate 10 52 mls @ 150 mls/hr 10/07/16 22:13 10/07/16 22: 23 mg/ Sodium Chloride IV 10/07/16 22:33 150 mls/hr ONETIME ONE Administration Ondansetron HCl 4 mg 10/07/16 20:16 10/07/16 20:31 Zofran IVPUSH 10/07/16 20:17 4 mg ONETIME ONE Administration - Re-Assessments/Exams Free Text/Narrative Re-Assessment/Exam: 10/07/16 23:20 This patient received a total of 2 L IV normal saline. Initially he received Zofran 4 mg IV at this did not help with the nausea. He then received Compazine 10 mg IV along with Benadryl 25 mg IV to protect against EPS. This seemed to help a lot with his nausea. Departure - Departure Time of Disposition: 23:21 Disposition: Home, Self-Care 01 Condition: Fair Clinical Impression: Vomiting, Cannabinoid hyperemesis syndrome - Discharge Information Referrals: PCP,None [Primary Care Provider] - Additional Instructions: Take promethazine 25 mg, one or 2 tablets every 6-8 hours as needed for vomiting. (#15 tablets dispensed) this medication will make you very very sleepy and will severely impair driving or operating any machinery. You may also be having a flareup of gastritis. For this take omeprazole 20 mg twice daily for 1 week.(You may get this medication by prescription or over-the- counter) Limit your diet to clear liquids for the next 24 hours - My Orders Last 24 Hours: My Active Orders 10/07/16 20:16 Sodium Chloride 0.9% [Saline Flush] 10 ml FLUSH ASDIRECTED PRN Saline Lock Insert [OM.PC] Urgent 10/07/16 20:30 Sodium Chloride 0.9% [Normal Saline] 1,000 ml IV ASDIRECTED - Assessment/Plan Last 24 Hours: My Active Orders 10/07/16 20:16 Sodium Chloride 0.9% [Saline Flush] 10 ml FLUSH ASDIRECTED PRN Saline Lock Insert [OM.PC] Urgent 10/07/16 20:30 Sodium Chloride 0.9% [Normal Saline] 1,000 ml IV ASDIRECTED
== END 2016-10-08 | disposition home or self-care (01) ==
LOC: JP.ED 19:35
DX: F12.988 Cannabis use, unspecified with other cannabis-induced disorder (principal); R11.2 Nausea with vomiting, unspecified
CPT/HCPCS: 36415; 80053; 80305; 85025; 96361; 96365; 96375; 99285; J0780; J1200; J2405; J7040; J7050; 99283

== ENCOUNTER 2016-10-08 21:36 | Observation (INO) | payer MEDICAID ==
[2016-10-08] MEDS ORDERED: Sodium Chloride 0.9% 1,000 ML IV SCH (22:15)
[2016-10-08] MEDS ORDERED: Prochlorperazine 10 MG/2 ML SDV IVPUSH ONE (22:16)
[2016-10-08] MEDS ORDERED: Sodium Chloride 0.9% 10 ML Syringe FLUSH PRN (22:16)
[2016-10-08] MEDS ORDERED: diphenhydrAMINE 50 MG/ML SDV IVPUSH ONE (22:16)
[2016-10-08] MEDS ORDERED: Pantoprazole 40 MG Vial IVPUSH ONE (22:17)
--- NOTE | 2016-10-08 23:24 | EDM.PDOC ---
ED HPI GENERAL MEDICAL PROBLEM - General Chief Complaint: Abdominal Pain Stated Complaint: BAD STOMACH ACHE Time Seen by Provider: 10/08/16 22:10 Source of Information: Reports: Patient History Limitations: Reports: No Limitations - History of Present Illness INITIAL COMMENTS - FREE TEXT/NARRATIVE: This young male comes in with intractable vomiting. 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 Last night he was treated with 2 L of IV normal saline and initially given Zofran which didn' t help and the was given 10 mg of Compazine which seemed to help quite a bit. He was discharged with a prescription for Phenergan. Today he's taken the Phenergan but said he never could keep it down it is Vomiting and he can't hold down any kind of liquids. His father who really wanted him admitted last night called the ER earlier today to tell us that he would be bringing him in and is again hoping he will be admitted. He denies any fever. He complains of just generalized abdominal pain which is crampy. He spelled vomited many times today. Denies any diarrhea. Denies any hematemesis - Related Data Allergies Allergy/AdvReac Type Severity Reaction Status Date / Time No Known Allergies Allergy Verified 09/26/15 20:28 Home Meds: Home Meds Promethazine [Phenergan] 10/08/16 [History] Past Medical History - Past Health History Medical/Surgical History: Denies Medical/Surgical History Gastrointestinal History: Reports: Gastritis Other Gastrointestinal History: EGD Musculoskeletal History: Reports: Fracture Neurological History: Reports: Concussion Other Neuro History: from playing hockey Psychiatric History: Reports: Anxiety, Depression, Hallucinations, Psych Hospitalization(s), Schizophrenia, Suicidal Ideation - Infectious Disease History Infectious Disease History: Reports: Chicken Pox - Past Surgical History GI Surgical History: Reports: EGD Other GI Surgeries/Procedures: 3 previous visits for hyperemasis 2nd to cantibus use Musculoskeletal Surgical History: Reports: Other (See Below) Other Musculoskeletal Surgeries/Procedures:: right wrist--glass removed Social & Family History - Tobacco Use Smoking Status *Q: Never Smoker Years of Tobacco use: 8 Packs/Tins Daily: 0.5 Used Tobacco, but Quit: No Second Hand Smoke Exposure: No - Caffeine Use Caffeine Use: Reports: Soda Caffeine Use Comment: 2-3/day - Alcohol Use Days Per Week of Alcohol Use: 0 - Recreational Drug Use Recreational Drug Use: Yes Drug Use in Last 12 Months: Yes Recreational Drug Type: Reports: Marijuana/Hashish Recreational Drug Use Frequency: Daily Recreational Drug Last Use: 08-04-16 ED ROS GENERAL - Review of Systems Review Of Systems: ROS reveals no pertinent complaints other than HPI. ED EXAM, GI/ABD - Physical Exam Exam: See Below Exam Limited By: No Limitations General Appearance: Alert, WD/WN, Moderate Distress Eyes: Bilateral: Normal Appearance Nose: Normal Inspection Throat/Mouth: Normal Inspection Head: Atraumatic Respiratory/Chest: Lungs Clear Cardiovascular: Regular Rate, Rhythm, No Murmur GI/Abdominal Exam: Soft, Non-Tender Extremities: Normal Inspection Neurological: Alert, Oriented, CN II-XII Intact, No Motor/Sensory Deficits Psychiatric: Normal Affect Skin Exam: Warm, Dry, Intact Course - Vital Signs Last Recorded V/S: Last Vital Signs Temp 37.4 C 10/08/16 21:57 Pulse 91 10/08/16 21:57 Resp 18 10/08/16 21:57 BP 147/88 H 10/08/16 21:57 Pulse Ox 98 10/08/16 21:57 - Orders/Labs/Meds Orders: Active Orders 24 hr Category Date Time Status UA W/MICROSCOPIC [URIN] Urgent Lab 10/08/16 22:15 Uncollected Sodium Chloride 0.9% [Normal Saline] 1,000 ml Med 10/08/16 22:15 Ordered IV ASDIRECTED Sodium Chloride 0.9% [Saline Flush] Med 10/08/16 22:16 Ordered 10 ml FLUSH ASDIRECTED PRN Saline Lock Insert [OM.PC] Urgent Oth 10/08/16 22:15 Ordered Medication Orders Sodium Chloride (Normal Saline) 1,000 mls @ 250 mls/hr IV ASDIRECTED MAYLIN Last Admin: 10/08/16 22:45 Dose: 250 mls/hr Sodium Chloride (Saline Flush) 10 ml FLUSH ASDIRECTED PRN PRN Reason: Keep Vein Open Last Admin: 10/08/16 22:46 Dose: 10 ml Labs: Laboratory Tests 10/08/16 10/08/16 10/08/16 Range/Units 22:25 22:25 22:25 WBC 11.6 H (4.5-11.0) K/uL RBC 5.00 (4.30-5.90) M/uL Hgb 16.3 H (12.0-15.0) g/dL Hct 45.9 (40.0-54.0) % MCV 92 (80-98) fL MCH 33 H (27-31) pg MCHC 36 (32-36) % Plt Count 321 (150-400) K/uL Neut % (Auto) 76 H (36-66) % Lymph % (Auto) 15 L (24-44) % [place] % (Auto) 8 H (2-6) % Eos % (Auto) 0 L (2-4) % Baso % (Auto) 1 (0-1) % Sodium 141 (140-148) mmol/L Potassium 3.0 L (3.6-5.2) mmol/L Chloride 101 (100-108) mmol/L Carbon Dioxide 28 (21-32) mmol/L Anion Gap 15.0 H (5.0-14.0) mmol/L BUN 11 (7-18) mg/dL Creatinine 1.2 (0.8-1.3) mg/dL Est Cr Clr Drug Dosing 102.39 mL/min Estimated GFR (MDRD) > 60 (>60) Glucose 124 H (74-106) mg/dL Calcium 9.4 (8.5-10.1) mg/dL Total Bilirubin 1.2 H (0.2-1.0) mg/dL AST 24 (15-37) U/L ALT 32 (12-78) U/L Alkaline Phosphatase 55 (46-116) U/L Total Protein 8.1 (6.4-8.2) g/dL Albumin 4.5 (3.4-5.0) g/dL Globulin 3.6 H (2.3-3.5) g/dL Albumin/Globulin Ratio 1.3 (1.2-2.2) Amylase 51 (25-115) U/L Lipase 111 (73-393) U/L Meds: Medications Generic Name Dose Route Start Last Admin Trade Name Freq PRN Reason Stop Dose Admin Sodium Chloride 1,000 mls @ 250 mls/hr 10/08/16 22:15 10/08/16 22:45 Normal Saline IV 250 mls/hr ASDIRECTED MAYLIN Administration Sodium Chloride 10 ml 10/08/16 22:16 10/08/16 22:46 Saline Flush FLUSH 10 ml ASDIRECTED PRN Administration Keep Vein Open Discontinued Medications Generic Name Dose Route Start Last Admin Trade Name Flex PRN Reason Stop Dose Admin Diphenhydramine HCl 25 mg 10/08/16 22:16 10/08/16 22:46 Benadryl IVPUSH 10/08/16 22:17 25 mg ONETIME ONE Administration Pantoprazole Sodium 40 mg 10/08/16 22:17 10/08/16 22:46 Protonix Iv IVPUSH 10/08/16 22:18 40 mg ONETIME ONE Administration Prochlorperazine Edisylate 10 mg 10/08/16 22:16 10/08/16 22:45 Compazine IVPUSH 10/08/16 22:17 10 mg ONETIME ONE Administration - Re-Assessments/Exams Free Text/Narrative Re-Assessment/Exam: 10/08/16 23:23 An IV was established. He began an infusion of normal saline to 50 mL an hour pending labs. He received Compazine 10 mg and Benadryl 25 mg IV. This did get a little bit of relief. I spoke with Madelin Lorenzana [employer] sales engineer for the hospitalist service and she will see him shortly regarding admission Departure - Departure Time of Disposition: 23:24 Disposition: Admitted As Inpatient 65 Condition: Fair Clinical Impression: Intractable vomiting - Discharge Information Referrals: PCP,None [Primary Care Provider] - - My Orders Last 24 Hours: My Active Orders 10/08/16 22:15 UA W/MICROSCOPIC [URIN] Urgent Sodium Chloride 0.9% [Normal Saline] 1,000 ml IV ASDIRECTED Saline Lock Insert [OM.PC] Urgent 10/08/16 22:16 Sodium Chloride 0.9% [Saline Flush] 10 ml FLUSH ASDIRECTED PRN - Assessment/Plan Last 24 Hours: My Active Orders 10/08/16 22:15 UA W/MICROSCOPIC [URIN] Urgent Sodium Chloride 0.9% [Normal Saline] 1,000 ml IV ASDIRECTED Saline Lock Insert [OM.PC] Urgent 10/08/16 22:16 Sodium Chloride 0.9% [Saline Flush] 10 ml FLUSH ASDIRECTED PRN
--- NOTE | 2016-10-09 00:26 | PCM.HP ---
H&P History of Present Illness - General Date of Service: 10/08/16 Admit Problem/Dx: Admission Diagnosis/Problem Admission Diagnosis/Problem Cannabinoid hyperemesis syndrome Source of Information: Patient, Provider, RN History Limitations: Reports: No Limitations - History of Present Illness Initial Comments - Free Text/Narative: INITIAL COMMENTS - FREE TEXT/NARRATIVE: This young male comes in with intractable vomiting. 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 Last night he was treated with 2 L of IV normal saline and initially given Zofran which didn' t help and then was given 10 mg of Compazine which seemed to help quite a bit. He was discharged with a prescription for Phenergan. Today he's taken the Phenergan but said he never could keep it down it is Vomiting and he can't hold down any kind of liquids. His father who really wanted him admitted last night called the ER earlier today to tell us that he would be bringing him in and is again hoping he will be admitted. He denies any fever. He complains of just generalized abdominal pain which is crampy. He reports vomited many times today. Denies any diarrhea. Denies any hematemesis. An IV was established. He began an infusion of normal saline 250 mL an hour pending labs. He received Compazine 10 mg and Benadryl 25 mg IV. This did get a little bit of relief. Will plan to admit to hospitalist service, Observation status. Onset of Symptoms: Reports: Gradual Symptom Onset Date: 10/06/16 Duration of Symptoms: Reports: Day(s):, Constant, Getting Worse Location: Reports: Abdomen Quality: Reports: Ache Severity: Moderate Improves with: Reports: None Worsens with: Reports: None Associated Symptoms: Reports: Loss of Appetite, Malaise, Nausea/Vomiting, Weakness - Related Data Allergies/Adverse Reactions: Allergies Allergy/AdvReac Type Severity Reaction Status Date / Time No Known Allergies Allergy Verified 09/26/15 20:28 Home Medications: Home Meds Promethazine [Phenergan] 10/08/16 [History] Past Medical History - Past Health History Medical/Surgical History: Denies Medical/Surgical History Gastrointestinal History: Reports: Gastritis Other Gastrointestinal History: EGD Musculoskeletal History: Reports: Fracture Neurological History: Reports: Concussion Other Neuro History: from playing hockey Psychiatric History: Reports: Anxiety, Depression, Hallucinations, Psych Hospitalization(s), Schizophrenia, Suicidal Ideation - Infectious Disease History Infectious Disease History: Reports: Chicken Pox - Past Surgical History GI Surgical History: Reports: EGD Other GI Surgeries/Procedures: 3 previous visits for hyperemasis 2nd to cantibus use Musculoskeletal Surgical History: Reports: Other (See Below) Other Musculoskeletal Surgeries/Procedures:: right wrist--glass removed Social & Family History - Tobacco Use Smoking Status *Q: Never Smoker Years of Tobacco use: 8 Packs/Tins Daily: 0.5 Used Tobacco, but Quit: No Second Hand Smoke Exposure: No - Caffeine Use Caffeine Use: Reports: Soda Caffeine Use Comment: 2-3/day - Alcohol Use Days Per Week of Alcohol Use: 0 - Recreational Drug Use Recreational Drug Use: Yes Drug Use in Last 12 Months: Yes Recreational Drug Type: Reports: Marijuana/Hashish Recreational Drug Use Frequency: Daily Recreational Drug Last Use: 08-04-16 - Living Situation & Occupation Living situation: Reports: Single, with Family (disabled by schizophrenia, lives with his Father in [place], [place].) Occupation: Disabled H&P Review of Systems - Review of Systems: Review Of Systems: See Below General: Reports: Weakness, Other (nausea and vomiting x 3 days.) HEENT: Reports: No Symptoms Pulmonary: Reports: No Symptoms Cardiovascular: Reports: No Symptoms Gastrointestinal: Reports: Abdominal Pain (epigastric), Nausea, Vomiting Genitourinary: Reports: No Symptoms Musculoskeletal: Reports: No Symptoms Skin: Reports: No Symptoms Psychiatric: Reports: Other (schizophrenia; stopped medications x 2 months ago. has not had appointment with Therapy in "a long time") Neurological: Reports: No Symptoms Hematologic/Lymphatic: Reports: No Symptoms Review of Systems Comment:: Tobacco; smoke approximately one pack per day THC; smokes at least one or more "bowl" per day, states 1 to 2 grams daily Exam - Exam Exam: See Below - Vital Signs Vital Signs: Last Vital Signs Temp 37.4 C 10/08/16 21:57 Pulse 91 10/08/16 21:57 Resp 18 10/08/16 21:57 BP 147/88 H 10/08/16 21:57 Pulse Ox 98 10/08/16 21:57 Weight: 77.8 kg - Exam Quality Assessment: Other (IV fluids) General: Cooperative, Mild Distress HEENT: PERRLA, Conjunctiva Clear, EOMI, Hearing Intact, Mucosa Moist & [place], Nares Patent, Posterior Pharynx Clear, Pupils Equal, Pupils Reactive, TMs Clear Neck: Supple, Trachea Midline, 2 Lungs: Clear to Auscultation, Normal Respiratory Effort Cardiovascular: Regular Rate, Regular Rhythm GI/Abdominal Exam: Normal Bowel Sounds, Soft, Non-Tender, No Organomegaly, No Distention, No Abnormal Bruit, No Mass, Pelvis Stable (Male) Exam: Deferred Rectal (Males) Exam: Deferred Back Exam: Normal Inspection, Full Range of Motion, NT Extremities: Normal Inspection, Normal Range of Motion, Non-Tender, No Pedal Edema, Normal Capillary Refill Skin: Warm, Dry, Intact Neurological: Cranial Nerves Intact, Reflexes Equal Bilateral Neuro Extensive - Mental Status: Alert, Oriented x3, Normal Mood/Affect, Normal Cognition Psychiatric: Alert, Normal Affect, Normal Mood - Patient Data Result Diagrams: 10/08/16 22:25 10/08/16 22:25 *Q Meaningful Use (ADM) - VTE *Q VTE Criteria *Q: - Stroke *Q Stroke Criteria *Q: - AMI *Q AMI Criteria *Q: - Problem List (1) Intractable vomiting SNOMED Code(s): 849396941, 671178871 ICD Code: R11.10 - VOMITING, UNSPECIFIED Status: Acute Priority: High Current Visit: Yes Qualifiers: Vomiting type: cyclical vomiting Nausea presence: with nausea Qualified Code(s): G43.A1 - Cyclical vomiting, intractable (2) Cannabinoid hyperemesis syndrome SNOMED Code(s): 609355912, 024928611 ICD Code: F12.988 - CANNABIS USE, UNSP WITH OTHER CANNABIS-INDUCED DISORDER Status: Acute Priority: High Current Visit: Yes (3) Schizophrenia SNOMED Code(s): 72716685 ICD Code: F20.9 - SCHIZOPHRENIA, UNSPECIFIED Status: Chronic Priority: Medium Current Visit: Yes (4) Hypokalemia, gastrointestinal losses SNOMED Code(s): 63108561 ICD Code: E87.6 - HYPOKALEMIA Status: Acute Priority: High Current Visit: Yes Problem List Initiated/Reviewed/Updated: Yes Orders Last 24hrs: Active Orders 24 hr Category Date Time Status Resuscitation Status Routine Resus Stat 10/08/16 23:59 Ordered Medication Orders Sodium Chloride (Normal Saline) 1,000 mls @ 250 mls/hr IV ASDIRECTED [facility] Last Admin: 10/08/16 22:45 Dose: 250 mls/hr Sodium Chloride (Saline Flush) 10 ml FLUSH ASDIRECTED PRN PRN Reason: Keep Vein Open Last Admin: 10/08/16 22:46 Dose: 10 ml Assessment/Plan Comment:: ASSESSMENT / PLAN This young male comes in with intractable vomiting. 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 Last night he was treated with 2 L of IV normal saline and initially given Zofran which didn' t help and then was given 10 mg of Compazine which seemed to help quite a bit. He was discharged with a prescription for Phenergan. Today he's taken the Phenergan but said he never could keep it down it is Vomiting and he can't hold down any kind of liquids. His father who really wanted him admitted last night called the ER earlier today to tell us that he would be bringing him in and is again hoping he will be admitted. He denies any fever. He complains of just generalized abdominal pain which is crampy. He reports vomited many times today. Denies any diarrhea. Denies any hematemesis. An IV was established. He began an infusion of normal saline 250 mL an hour pending labs. He received Compazine 10 mg and Benadryl 25 mg IV. This did get a little bit of relief. Lab; sodium 141, potassium 3.0, wbc normal. Will plan to admit to hospitalist service, Observation status. Cannabinoid hyperemesis, intractable vomiting, with secondary hypokalemia -Admit to [address] [place] [address] Observation for further monitoring -IV fluids for rehydration NS at 150 mL per hour -IV potassium 40 meq now, then re-evaluate Potassium level in am -IV anti-emetic medications ordered -po Carafate 1 gram before meal and at bedtime -Advise to notify nurses of any abdominal pain or other symptoms -a.m. labs: CBC, BMP Schizophrenia -discussed with Mr. Crooks to restart medications, he declines at this time. -denies any hallucinations, thoughts of violence. Maintenance issues -Orders home meds: none -Nutrition: clear liquid advance as tolerated diet -Nichols catheter not indicated at this time -DVT: ambulate. -GI Prophalaxis; Protonix 40mg daily CODE STATUS: Full Admission status: Admit to Observation -I expect this patient to stay less than 24 hours, not to exceed 96 hours for evaluation and management of this problem. Disposition: home with family Primary care provider: none noted Hospitalist: Dr. Ham
[2016-10-09] MEDS ORDERED: Acetaminophen 325 MG Tab PO PRN (00:44)
[2016-10-09] MEDS ORDERED: Docusate Sodium 100 MG Cap PO PRN (00:44)
[2016-10-09] MEDS ORDERED: Albuterol 0.083% 2.5 MG/3 ML Neb Soln NEB PRN (00:44)
[2016-10-09] MEDS ORDERED: Aluminum Hydroxide/Magnesium Hydroxide/Simethicone Susp 30 ML Cup PO PRN (00:44)
[2016-10-09] MEDS ORDERED: Acetaminophen/HYDROcodone 325-5 MG Tab PO PRN (00:44)
[2016-10-09] MEDS ORDERED: Morphine 2 MG/ML Syringe IVPUSH PRN (00:44)
[2016-10-09] MEDS ORDERED: Ondansetron 4 MG Tab.DIS PO PRN (00:44)
[2016-10-09] MEDS ORDERED: LORazepam 2 MG/ML MDV IV PRN (00:44)
[2016-10-09] MEDS ORDERED: Zolpidem 5 MG Tab PO PRN (00:44)
[2016-10-09] MEDS ORDERED: Potassium Chloride 40 MEQ in Premix Bag 1 BAG IV ONE (00:44)
[2016-10-09] MEDS: Sucralfate 1 GM Tab PO SCH ×5 (01:17→21:25)
[2016-10-09] MEDS: Potassium Chloride 20 MEQ in Premix Bag 1 BAG IV SCH ×2 (01:54→04:05)
[2016-10-09] MEDS: Sodium Chloride 0.9% 1,000 ML IV SCH ×4 (02:01→23:58)
[2016-10-09] MEDS ORDERED: Pantoprazole 40 MG Vial IV SCH (09:00)
[2016-10-09] MEDS: Ondansetron 4 MG/2 ML SDV IVPUSH PRN ×2 (09:16→15:04)
--- NOTE | 2016-10-09 12:05 | PCM.PN ---
- General Info Date of Service: 10/09/16 Functional Status: Reports: Pain Controlled. Denies: Tolerating Diet - Review of Systems Gastrointestinal: Reports: Abdominal Pain, Nausea, Vomiting Systems Review Comment:: Ongoing difficulty with nausea, vomiting and retching this morning. Still having at least mild to moderate epigastric abdominal pain. Symptoms much worse whenever he tries to drink anything or even swishing water around in his mouth. No complaints of diarrhea and he has not had any fevers. Feels similar to his episode of gastritis in the past. - Patient Data Vitals - Most Recent: Last Vital Signs Temp 36.5 C 10/09/16 11:00 Pulse 71 10/09/16 11:00 Resp 18 10/09/16 11:00 BP 125/84 10/09/16 11:00 Pulse Ox 99 10/09/16 11:00 Weight - Most Recent: 77.8 kg I&O - Last 24 Hours: Intake & Output 10/08/16 10/09/16 10/09/16 22:59 06:59 14:59 Intake Total 912 1876 Output Total 600 Balance 912 1276 Lab Results Last 24 Hours: Laboratory Results - last 24 hr 10/09/16 10/09/16 Range/Units 06:21 06:21 WBC 10.5 (4.5-11.0) K/uL RBC 4.33 (4.30-5.90) M/uL Hgb 14.1 D (12.0-15.0) g/dL Hct 41.1 (40.0-54.0) % MCV 95 (80-98) fL MCH 33 H (27-31) pg MCHC 34 (32-36) % Plt Count 267 (150-400) K/uL Neut % (Auto) 58 (36-66) % Lymph % (Auto) 30 (24-44) % [place] % (Auto) 11 H (2-6) % Eos % (Auto) 0 L (2-4) % Baso % (Auto) 1 (0-1) % Sodium 143 (140-148) mmol/L Potassium 4.0 (3.6-5.2) mmol/L Chloride 107 (100-108) mmol/L Carbon Dioxide 31 (21-32) mmol/L Anion Gap 4.7 L (5.0-14.0) mmol/L BUN 12 (7-18) mg/dL Creatinine 1.1 (0.8-1.3) mg/dL Est Cr Clr Drug Dosing 111.70 mL/min Estimated GFR (MDRD) > 60 (>60) Glucose 91 (74-106) mg/dL Calcium 8.4 L (8.5-10.1) mg/dL Med Orders - Current: Current Medications Acetaminophen (Tylenol) 650 mg PO Q4H PRN PRN Reason: Pain (Mild 1-3)/fever Hydrocodone Bitart/Acetaminophen ([place] 325-5 Mg) 1 tab PO Q4H PRN PRN Reason: Pain (moderate 4-6) Al Hydroxide/Mg Hydroxide (Mag-Al Plus) 30 ml PO Q6H PRN PRN Reason: Heartburn Albuterol (Proventil Neb Soln) 2.5 mg NEB Q4H PRN PRN Reason: Shortness Of Breath/wheezing Docusate Sodium (Colace) 100 mg PO BID PRN PRN Reason: Constipation Sodium Chloride (Normal Saline) 1,000 mls @ 150 mls/hr IV ASDIRECTED [facility] Last Admin: 10/09/16 09:08 Dose: 150 mls/hr Lorazepam (Ativan) 1 mg IV Q6H PRN PRN Reason: Nausea/Vomiting Last Admin: 10/09/16 10:10 Dose: 1 mg Morphine Sulfate (Morphine) 2 mg IVPUSH Q2H PRN PRN Reason: Pain (severe 7-10) Ondansetron HCl (Zofran Odt) 4 mg PO Q6H PRN PRN Reason: Nausea able to take PO Ondansetron HCl (Zofran) 4 mg IVPUSH Q4H PRN PRN Reason: Nausea/Vomiting Last Admin: 10/09/16 09:16 Dose: 4 mg Pantoprazole Sodium (Protonix Iv) 40 mg IV DAILY [facility] Last Admin: 10/09/16 09:04 Dose: 40 mg Sodium Chloride (Saline Flush) 10 ml FLUSH ASDIRECTED PRN PRN Reason: Keep Vein Open Last Admin: 10/08/16 22:46 Dose: 10 ml Sucralfate (Carafate) 1 gm PO QIDACANDBED [facility] Last Admin: 10/09/16 09:04 Dose: 1 gm Zolpidem Tartrate (Ambien) 5 mg PO BEDTIME PRN PRN Reason: Sleep Last Admin: 10/09/16 01:17 Dose: 5 mg Discontinued Medications Diphenhydramine HCl (Benadryl) 25 mg IVPUSH ONETIME ONE Stop: 10/08/16 22:17 Last Admin: 10/08/16 22:46 Dose: 25 mg Sodium Chloride (Normal Saline) 1,000 mls @ 250 mls/hr IV ASDIRECTED [facility] Stop: 10/09/16 00:44 Last Admin: 10/08/16 22:45 Dose: 250 mls/hr Potassium Chloride 40 meq/ (Premix) 100 mls @ 25 mls/hr IV ONETIME ONE Stop: 10/09/16 04:43 Last Admin: 10/09/16 02:10 Dose: Not Given Potassium Chloride 20 meq/ (Premix) 0 mls @ 50 mls/hr IV Q2H [facility] Stop: 10/09/16 04:01 Last Admin: 10/09/16 04:05 Dose: 50 mls/hr Lidocaine HCl (Xylocaine-Mpf 1%) 2 ml INJECT Q2H [facility] Stop: 10/09/16 04:00 Last Admin: 10/09/16 04:04 Dose: 2 ml Pantoprazole Sodium (Protonix Iv) 40 mg IVPUSH ONETIME ONE Stop: 10/08/16 22:18 Last Admin: 10/08/16 22:46 Dose: 40 mg Prochlorperazine Edisylate (Compazine) 10 mg IVPUSH ONETIME ONE Stop: 10/08/16 22:17 Last Admin: 10/08/16 22:45 Dose: 10 mg - Exam Quality Assessment: No: Supplemental Oxygen General: Alert, Oriented, Cooperative, Mild Distress Neck: Supple Lungs: Normal Respiratory Effort GI/Abdominal Exam: Soft, No Distention Extremities: No Pedal Edema. No: Increased Warmth Skin: Warm, Dry Psy/Mental Status: Alert, Normal Affect - Problem List Review Problem List Initiated/Reviewed/Updated: Yes - My Orders Last 24 Hours: My Active Orders 10/09/16 12:02 Consult to Physician [CONS] Routine 10/09/16 12:03 Notify Provider Consults [RC] ASDIRECTED - Plan Plan:: ASSESSMENT / PLAN Epigastric pain with nausea and vomiting - story seems to be more consistent with gastritis or gastric ulcer none with hyperemesis due to cannabis use. Feels a little better after a dose of lorazepam this morning. -Continue IV fluids -IV anti-emetic medications ordered -po Carafate 1 gram before meal and at bedtime -PPI -Consult Dr. Ybarra for EGD Schizophrenia - stable, no behavior issues at this time. -discussed with Mr. Crooks to restart medications, he declines at this time. -denies any hallucinations, thoughts of violence Maintenance issues -Orders home meds: none -Nutrition: clear liquid advance as tolerated diet -Nichols catheter not indicated at this time -DVT: ambulate. -GI Prophalaxis; Protonix 40mg daily Admission status: Admit to Observation -I expect this patient to stay less than 24 hours, not to exceed 96 hours for evaluation and management of this problem. Disposition: home with family Emerson Mustafa M.D.
[2016-10-09] MEDS ORDERED: Midazolam 1 MG/ML 2 ML SDV ONE (12:10)
[2016-10-09] MEDS ORDERED: Propofol 200 MG/20 ML SDV ONE ×2 (12:10→12:58)
[2016-10-09] MEDS ORDERED: fentaNYL 100 MCG/2 ML SDV ONE (12:10)
[2016-10-09] MEDS ORDERED: Fluconazole/Normal Saline 200 MG in Premix Bag 1 BAG IV SCH (17:00)
[2016-10-09] MEDS: Pantoprazole 40 MG Vial IV SCH (21:25)
[2016-10-10] MEDS: Sucralfate 1 GM Tab PO SCH ×2 (07:40→10:52)
--- NOTE | 2016-10-10 08:53 | OR ---
DATE OF PROCEDURE: 10/09/2016 PREOPERATIVE DIAGNOSIS: Epigastric pain. POSTOPERATIVE DIAGNOSES: Florid distal esophagitis, gastroesophageal reflux disease, gastric white plaque, possible gastritis. PROCEDURE: Esophagogastroduodenoscopy with antral biopsies for CLOtest, sent for pathology to look for Helicobacter pylori. Biopsy and culture of gastric white plaque, biopsy of gastroesophageal junction. SURGEON: Wade Ybarra MD. ANESTHESIA: IV anesthesia with monitored anesthesia care. INDICATION: This 25-year-old white male is in the hospital with severe epigastric pain. A request was made for upper endoscopy. He underwent upper endoscopy in June of this year with a few scant yeast seen, also some gastritis. I counseled him for upper endoscopy with possible biopsy including risks and alternatives, and he gave his informed consent to proceed. DESCRIPTION OF PROCEDURE: The patient was placed in the left lateral decubitus position. IV anesthesia was administered by the Anesthesia Service. Time-out was held. The flexible video Olympus upper endoscope was passed through his mouth, down his esophagus, and into his stomach. The scope was easily passed through the pylorus into the duodenum , reaching its third portion. The scope was then slowly withdrawn examining the mucosa throughout. The duodenal mucosa appeared unremarkable. The scope was brought up through the pylorus. There was white plaque throughout the stomach suggestive of possible Juanita gastritis. There was also some mild red streaking emanating from the pylorus suggestive of mild gastritis. We obtained antral biopsies for CLOtest and sent for pathology to look for Helicobacter pylori. We did remove some of the white plaque and sent this separately on a culture stick to the laboratory for analysis to see if this is Juanita. The scope was retroflexed. The most proximal stomach showed no evidence of inflammation, but there was still white plaque around. The scope was straightened and brought up to the GE junction. This was markedly abnormal with florid distal esophagitis. We obtained multiple, totalling at least six biopsies of the gastroesophageal junction. The scope was then brought proximally through the remainder of the esophagus, which otherwise appeared unremarkable and was removed. He tolerated the procedure well. Wade Ybarra MD /[id number]
[2016-10-10] MEDS: Pantoprazole 40 MG Vial IV SCH (09:36)
[2016-10-10] MEDS: Sodium Chloride 0.9% 1,000 ML IV SCH (10:50)
[2016-10-10 12:35] VITALS: BP 98/67
--- NOTE | 2016-10-10 13:27 | PCM.DCSUM1 ---
Discharge Summary - Hospital Course Brief History: 26-year-old male with tobacco dependence who presented with epigastric pain, nausea and vomiting and was admitted for management of the above symptoms - Discharge Data Discharge Date: 10/10/16 Discharge Disposition: Home, Self-Care 01 Condition: Good - Discharge Diagnosis/Problem(s) (1) GERD with esophagitis SNOMED Code(s): 905518072 ICD Code: K21.0 - GASTRO-ESOPHAGEAL REFLUX DISEASE WITH ESOPHAGITIS Status : Acute (2) Hypokalemia, gastrointestinal losses SNOMED Code(s): 02279327 ICD Code: E87.6 - HYPOKALEMIA Status: Acute Priority: High - Patient Summary/Data Consults: Consultations 10/09/16 12:02 Consult to Physician [CONS] Routine Consulting Provider: Wade Ybarra Call Completed to Consulting Physician: Yes Reason for Consult: epigastric pain with nausea and vomiting Person Notified: BDB Date Notified: 10/09/16 Special Instructions: EGD this afternoon Labs Pending at D/C: pathology results from EGD biopsies. Hospital Course: Josse presented to the emergency room with epigastric pain nausea and vomiting. At the time of presentation there was concern for hyperemesis syndrome secondary to chronic cannabis ingestion. He was admitted to the hospital and started on IV fluids as well as medications to help manage his symptoms. The morning after admission he is still having a fair amount of epigastric pain and is retching with any sort of fluid ingestion. I consulted Dr. Ybarra to perform an EGD. This revealed severe esophagitis which was thought to be secondary to esophageal reflux disease. There were some white plaques noted on the areas of inflammation but no definite evidence for yeast infection. he has improved with hydration as well as a twice daily proton pump inhibitor and sucralfate. He has tolerated his diet today with the ability to eat all of his breakfast and no significant nausea or vomiting. He has stuck with the clear liquids. Biopsy results are pending at this time but I do believe he is safe for outpatient management with parent resolution of symptoms. I did recommend that he continue his twice daily proton pump inhibitor for one month. He will also be on sucralfate 3 times a day. I encouraged him to raise the head of his bed 1-2 inches to help reduce acid reflux. I encouraged him to quit smoking to help reduce his acid reflux. He will be following up with Dr. Cardenas next week. - Patient Instructions Diet: Regular Diet as Tolerated Diet, Other: soft and bland foods x 1-2 weeks Activity: As Tolerated Driving: May Drive Today Showering/Bathing: May Shower Notify Provider of: Fever, Increased Pain, Nausea and/or Vomiting Other/Special Instructions: 1. You were in the hospital for management of epigastric pain with nausea and vomiting caused by esophageal reflux disease and esophagitis. Symptoms have been improving utilizing sucralfate as well as a proton pump inhibitor. I would recommend following to help manage your disease after your transition home: -Take sucralfate 1 g 3 times daily with meals 1 month. -Take pantoprazole 40 mg twice daily with meals 1 month. -Eat soft and bland foods for the next one to 2 weeks until symptoms resolve. Liquids such as soups as well as soft foods including pudding, mashed potatoes, yogurt or cottage cheese are good food choices. -Consider raising the head of your bed approximately 2 inches using blocks of wood to help reduce the stomach acid that washes into your esophagus. -Quitting smoking can help reduce esophageal reflux as well. 2. Please follow-up with Dr. Cardenas next week. 3. Please seek medical attention if you develop fever greater than 101, have nausea or vomiting that you're unable to manage at home or if you have severe epigastric abdominal pain - Discharge Plan Prescriptions/Med Rec: Pantoprazole [ProTONIX] 40 mg PO BIDAC #60 tab.cr Sucralfate 1 gm PO TID #90 tablet Home Medications: Home Meds Pantoprazole [ProTONIX] 40 mg PO BIDAC #60 tab.cr 10/10/16 [Rx] Sucralfate 1 gm PO TID #90 tablet 10/10/16 [Rx] Patient Handouts: Food Choices for Gastroesophageal Reflux Disease, Adult, Pantoprazole tablets, Gastroesophageal Reflux Disease, Adult Referrals: Sukhjinder Cardenas Sr, MD [Physician] - 10/17/16 10:30 am (1 week - follow-up hospital stay for GERD/esophagitis) - Discharge Summary/Plan Comment DC Time >30 min.: No (25) - Patient Data Vitals - Most Recent: Last Vital Signs Temp 36.8 C 10/10/16 12:31 Pulse 75 10/10/16 12:31 Resp 18 10/10/16 12:31 BP 98/67 10/10/16 12:31 Pulse Ox 95 10/10/16 12:31 Weight - Most Recent: 77.8 kg I&O - Last 24 hours: Intake & Output 10/09/16 10/10/16 10/10/16 22:59 06:59 14:59 Intake Total 1952 1063 600 Output Total 1225 200 800 Balance 727 863 -200 PHIL Results - Last 24 hrs: Microbiology 10/09/16 12:52 CLOtest - Final Stomach NEGATIVE CLOTEST 10/09/16 13:59 Gram Stain - Final Other Med Orders - Current: Current Medications Acetaminophen (Tylenol) 650 mg PO Q4H PRN PRN Reason: Pain (Mild 1-3)/fever Hydrocodone Bitart/Acetaminophen (Culver 325-5 Mg) 1 tab PO Q4H PRN PRN Reason: Pain (moderate 4-6) Last Admin: 10/09/16 15:04 Dose: 1 tab Al Hydroxide/Mg Hydroxide (Mag-Al Plus) 30 ml PO Q6H PRN PRN Reason: Heartburn Albuterol (Proventil Neb Soln) 2.5 mg NEB Q4H PRN PRN Reason: Shortness Of Breath/wheezing Docusate Sodium (Colace) 100 mg PO BID PRN PRN Reason: Constipation Sodium Chloride (Normal Saline) 1,000 mls @ 100 mls/hr IV ASDIRECTED [facility] Last Admin: 10/10/16 10:50 Dose: 100 mls/hr Fluconazole/Sodium Chloride (200 mg/ Premix) 100 mls @ 100 mls/hr IV Q24H [facility] Last Admin: 10/09/16 18:03 Dose: 100 mls/hr Lorazepam (Ativan) 1 mg IV Q6H PRN PRN Reason: Nausea/Vomiting Last Admin: 10/09/16 10:10 Dose: 1 mg Morphine Sulfate (Morphine) 2 mg IVPUSH Q2H PRN PRN Reason: Pain (severe 7-10) Ondansetron HCl (Zofran Odt) 4 mg PO Q6H PRN PRN Reason: Nausea able to take PO Ondansetron HCl (Zofran) 4 mg IVPUSH Q4H PRN PRN Reason: Nausea/Vomiting Last Admin: 10/09/16 15:04 Dose: 4 mg Pantoprazole Sodium (Protonix Iv) 40 mg IV BID [facility] Last Admin: 10/10/16 09:36 Dose: 40 mg Sodium Chloride (Saline Flush) 10 ml FLUSH ASDIRECTED PRN PRN Reason: Keep Vein Open Last Admin: 10/08/16 22:46 Dose: 10 ml Sucralfate (Carafate) 1 gm PO QIDACANDBED [facility] Last Admin: 10/10/16 10:52 Dose: 1 gm Zolpidem Tartrate (Ambien) 5 mg PO BEDTIME PRN PRN Reason: Sleep Last Admin: 10/09/16 01:17 Dose: 5 mg Discontinued Medications Diphenhydramine HCl (Benadryl) 25 mg IVPUSH ONETIME ONE Stop: 10/08/16 22:17 Last Admin: 10/08/16 22:46 Dose: 25 mg Fentanyl (Sublimaze) Confirm Administered Dose 100 mcg .ROUTE .STK-MED ONE Stop: 10/09/16 12:11 Sodium Chloride (Normal Saline) 1,000 mls @ 250 mls/hr IV ASDIRECTED [facility] Stop: 10/09/16 00:44 Last Admin: 10/08/16 22:45 Dose: 250 mls/hr Potassium Chloride 40 meq/ (Premix) 100 mls @ 25 mls/hr IV ONETIME ONE Stop: 10/09/16 04:43 Last Admin: 10/09/16 02:10 Dose: Not Given Sodium Chloride (Normal Saline) 1,000 mls @ 150 mls/hr IV ASDIRECTED [facility] Last Admin: 10/09/16 13:50 Dose: 150 mls/hr Potassium Chloride 20 meq/ (Premix) 0 mls @ 50 mls/hr IV Q2H [facility] Stop: 10/09/16 04:01 Last Admin: 10/09/16 04:05 Dose: 50 mls/hr Lidocaine HCl (Xylocaine-Mpf 1%) 2 ml INJECT Q2H [facility] Stop: 10/09/16 04:00 Last Admin: 10/09/16 04:04 Dose: 2 ml Midazolam HCl (Versed 1 Mg/Ml) Confirm Administered Dose 2 mg .ROUTE .STK-MED ONE Stop: 10/09/16 12:11 Pantoprazole Sodium (Protonix Iv) 40 mg IVPUSH ONETIME ONE Stop: 10/08/16 22:18 Last Admin: 10/08/16 22:46 Dose: 40 mg Pantoprazole Sodium (Protonix Iv) 40 mg IV DAILY [facility] Last Admin: 10/09/16 09:04 Dose: 40 mg Prochlorperazine Edisylate (Compazine) 10 mg IVPUSH ONETIME ONE Stop: 10/08/16 22:17 Last Admin: 10/08/16 22:45 Dose: 10 mg Propofol (Diprivan 20 Ml) Confirm Administered Dose 200 mg .ROUTE .STK-MED ONE Stop: 10/09/16 12:11 Propofol (Diprivan 20 Ml) Confirm Administered Dose 200 mg .ROUTE .STK-MED ONE Stop: 10/09/16 12:59 *Q Meaningful Use (DIS) - VTE *Q VTE Criteria *Q: - Stroke *Q Stroke Criteria *Q: - AMI *Q AMI Criteria *Q:
== END 2016-10-10 13:55 | disposition home or self-care (01) ==
LOC: JP.ED 21:36 → JP.MS 23:58
PROVIDERS: ADMIT Hospitalist; ATTEND Internal Medicine
DX: K29.50 Unspecified chronic gastritis without bleeding (principal); K22.10 Ulcer of esophagus without bleeding; F41.9 Anxiety disorder, unspecified; F32.9 Major depressive disorder, single episode, unspecified; Z98.890 Other specified postprocedural states; Z79.899 Other long term (current) drug therapy
CPT/HCPCS: 36415; 43239; 80048; 80053; 81001; 82150; 83690; 83735; 85025; 87070; 87077; 87081; 87205; 88305; 88312; 96361; 96366; 96367; 96375; 96376; 99284; 99285; A9270; C9113; G0378; J0780; J1200; J1450; J2060; J2250; J2405; J2704; J3010; J3480; J7040; J7050; 96374; 99217; 99219; 99225

== ENCOUNTER 2016-10-10 22:23 | Emergency (ER) | payer MEDICAID ==
[2016-10-10] MEDS ORDERED: Ondansetron 4 MG/2 ML SDV IVPUSH ONE (23:05)
[2016-10-10] MEDS ORDERED: Sodium Chloride 0.9% 1,000 ML IV SCH (23:15)
[2016-10-11] MEDS ORDERED: NS + KCl 20mEq/L 1,000 ML IV SCH (00:15)
[2016-10-11] MEDS ORDERED: Ondansetron 4 MG/2 ML SDV IVPUSH ONE (01:09)
[2016-10-11] MEDS ORDERED: D5 1/2 NS w/ 20 mEq/L KCl 1,000 ML IV SCH (03:00)
[2016-10-11] MEDS ORDERED: Ondansetron 4 MG/2 ML SDV ONE (03:15)
[2016-10-11 03:33] VITALS: BP 149/84
--- NOTE | 2016-10-11 05:56 | EDM.PDOC ---
ED HPI GENERAL MEDICAL PROBLEM - General Chief Complaint: Abdominal Pain Stated Complaint: ABDOMINAL PAIN Time Seen by Provider: 10/10/16 22:56 Source of Information: Reports: Patient History Limitations: Reports: No Limitations - History of Present Illness INITIAL COMMENTS - FREE TEXT/NARRATIVE: History of present illness: [This 26-year-old male presented with complaints of nausea and emesis. He has just been discharged from the hospital today. In reviewing the notes from that hospitalization there is a concern for hyperemesis secondary to cannabis usage. I spoke with him about this and he states that he recognizes the need to get off of marijuana and that he has not used anything since Sunday. I do not know whether or not course this is the truth but this is what he states. He is here seeking relief from his nausea and epigastric discomfort. He states that IV fluids help him with his nausea and is requesting fluids.] Review of systems: As per history of present illness and below otherwise all systems reviewed and negative. Past medical history: As per history of present illness and as reviewed below otherwise noncontributory. Surgical history: As per history of present illness and as reviewed below otherwise noncontributory. Social history: No reported history of drug or alcohol abuse. Family history: As per history of present illness and as reviewed below otherwise noncontributory. Physical exam: HEENT: Atraumatic, normocephalic, pupils reactive, negative for conjunctival pallor or scleral icterus, mucous membranes moist, throat clear, neck supple, nontender, trachea midline. Lungs: Clear to auscultation, breath sounds equal bilaterally, chest nontender. Heart: S1S2, regular, negative for clicks, rubs, or JVD. Abdomen: Soft, nondistended, nontender. Negative for masses or hepatosplenomegaly. Negative for costovertebral tenderness. Pelvis: Stable nontender. Genitourinary: Deferred. Rectal: Deferred. Extremities: Atraumatic, negative for cords or calf pain. Neurovascular unremarkable. Neuro: Awake, alert, oriented. Exam nonfocal. Diagnostics: [Basic metabolic panel was done] Therapeutics: [Patient received IV fluids and IV Zofran through the night and is being discharged] Impression: [Nausea and vomiting possibly secondary to cannabis use. ] Plan: [Patient is willing to be discharged after receiving several liters of fluids he states he's feeling better and is willing to try discharge plan that was given to him yesterday when he was discharged with respect to medications etc.] Definitive disposition and diagnosis as appropriate pending reevaluation and review of above. abdominal pain Pain Score (Numeric/FACES): 10 - Related Data Allergies Allergy/AdvReac Type Severity Reaction Status Date / Time No Known Allergies Allergy Verified 09/26/15 20:28 Home Meds: Home Meds Pantoprazole [ProTONIX] 40 mg PO BIDAC #60 tab.cr 10/10/16 [Rx] Sucralfate 1 gm PO TID #90 tablet 10/10/16 [Rx] Zolpidem Tartrate [Ambien] 5 mg PO BEDTIME 10/10/16 [History] Past Medical History - Past Health History Medical/Surgical History: Denies Medical/Surgical History Gastrointestinal History: Reports: Gastritis Other Gastrointestinal History: EGD Musculoskeletal History: Reports: Fracture Neurological History: Reports: Concussion Other Neuro History: from playing hockey Psychiatric History: Reports: Anxiety, Depression, Hallucinations, Psych Hospitalization(s), Schizophrenia, Suicidal Ideation - Infectious Disease History Infectious Disease History: Reports: Chicken Pox - Past Surgical History GI Surgical History: Reports: EGD Other GI Surgeries/Procedures: 3 previous visits for hyperemasis 2nd to cannibus use Musculoskeletal Surgical History: Reports: Other (See Below) Other Musculoskeletal Surgeries/Procedures:: right wrist--glass removed Social & Family History - Tobacco Use Smoking Status *Q: Current Some Day Smoker Years of Tobacco use: 8 Packs/Tins Daily: 1 Used Tobacco, but Quit: No Second Hand Smoke Exposure: No - Caffeine Use Caffeine Use: Reports: Soda Caffeine Use Comment: 2-3/day - Alcohol Use Days Per Week of Alcohol Use: 0 - Recreational Drug Use Recreational Drug Use: Yes Drug Use in Last 12 Months: Yes Recreational Drug Type: Reports: Marijuana/Hashish Recreational Drug Use Frequency: Weekly Recreational Drug Last Use: 10/06 - Living Situation & Occupation Living situation: Reports: Single, with Family (disabled by schizophrenia, lives with his Father in [place], [place].) Occupation: Disabled ED ROS GENERAL - Review of Systems Review Of Systems: ROS reveals no pertinent complaints other than HPI. ED EXAM, GENERAL - Physical Exam Exam: See Below Course - Vital Signs Last Recorded V/S: Last Vital Signs Temp 36.8 C 10/11/16 03:32 Pulse 63 10/11/16 03:32 Resp 17 10/11/16 03:32 BP 149/84 H 10/11/16 03:32 Pulse Ox 97 10/11/16 03:32 - Orders/Labs/Meds Orders: Active Orders 24 hr Category Date Time Status D5 1/2 NS w/ 20 mEq/L KCl 1,000 ml Med 10/11/16 03:00 Active IV ASDIRECTED NS + KCl 20mEq/L [Normal Saline with 20 mEq KCl] 1,000 Med 10/11/16 00:15 Active ml IV ASDIRECTED Sodium Chloride 0.9% [Normal Saline] 1,000 ml Med 10/10/16 23:15 Active IV ASDIRECTED Medication Orders Sodium Chloride (Normal Saline) 1,000 mls @ 999 mls/hr IV ASDIRECTED [facility] Last Admin: 10/10/16 23:43 Dose: 999 mls/hr Potassium Chloride/Sodium Chloride (Normal Saline With 20 Meq Kcl) 1,000 mls @ 500 mls/hr IV ASDIRECTED [facility] Last Admin: 10/11/16 00:54 Dose: 500 mls/hr Potassium Chloride/Dextrose/Sod Cl (D5 1/2 Ns W/ 20 Meq/L Kcl) 1,000 mls @ 250 mls/hr IV ASDIRECTED [facility] Last Admin: 10/11/16 03:26 Dose: 250 mls/hr Labs: Laboratory Tests 10/10/16 Range/Units 23:15 Sodium 142 (140-148) mmol/L Potassium 3.4 L (3.6-5.2) mmol/L Chloride 105 (100-108) mmol/L Carbon Dioxide 26 (21-32) mmol/L Anion Gap 14.4 H (5.0-14.0) mmol/L BUN 8 (7-18) mg/dL Creatinine 1.1 (0.8-1.3) mg/dL Est Cr Clr Drug Dosing 110.72 mL/min Estimated GFR (MDRD) > 60 (>60) Glucose 129 H (74-106) mg/dL Calcium 8.7 (8.5-10.1) mg/dL Meds: Medications Generic Name Dose Route Start Last Admin Trade Name Freq PRN Reason Stop Dose Admin Sodium Chloride 1,000 mls @ 999 mls/hr 10/10/16 23:15 10/10/16 23:43 Normal Saline IV 999 mls/hr ASDIRECTED [facility] Administration Potassium Chloride/Sodium Chloride 1,000 mls @ 500 mls/hr 10/11/16 00:15 00:54 Normal Saline With 20 Meq Kcl IV 500 mls/hr ASDIRECTED [facility] Administration Potassium Chloride/Dextrose/Sod Cl 1,000 mls @ 250 mls/hr 10/11/16 03:00 03:26 D5 1/2 Ns W/ 20 Meq/L Kcl IV 250 mls/hr ASDIRECTED [facility] Administration Discontinued Medications Generic Name Dose Route Start Last Admin Trade Name Flex PRN Reason Stop Dose Admin Ondansetron HCl 4 mg 10/10/16 23:05 10/10/16 23:46 Zofran IVPUSH 10/10/16 23:06 4 mg ONETIME ONE Administration Ondansetron HCl 4 mg 10/11/16 01:09 10/11/16 03:26 Zofran IVPUSH 10/11/16 01:10 4 mg ONETIME ONE Administration Ondansetron HCl Confirm 10/11/16 03:15 10/11/16 03:25 Zofran Administered 10/11/16 03:16 Not Given Dose 4 mg .ROUTE .STK-MED ONE Departure - Departure Time of Disposition: 05:54 Disposition: Home, Self-Care 01 Condition: Good Clinical Impression: Nausea & vomiting Qualifiers: Vomiting type: unspecified Vomiting Intractability: unspecified Qualified Code( s): R11.2 - Nausea with vomiting, unspecified - Discharge Information Referrals: PCP,None [Primary Care Provider] - Additional Instructions: Please review your discharge instructions with respect to recommendations regarding your esophagitis and the medications that you are to be taking. Hopefully these medications etc. will be helpful to you in managing your epigastric pain and nausea and vomiting. As we spoke I do believe that cannabis is playing a role in your medical problems and I strongly advise you to stop using it in any form. - My Orders Last 24 Hours: My Active Orders 10/10/16 23:15 Sodium Chloride 0.9% [Normal Saline] 1,000 ml IV ASDIRECTED 10/11/16 00:15 NS + KCl 20mEq/L [Normal Saline with 20 mEq KCl] 1,000 ml IV ASDIRECTED 10/11/16 03:00 D5 1/2 NS w/ 20 mEq/L KCl 1,000 ml IV ASDIRECTED - Assessment/Plan Last 24 Hours: My Active Orders 10/10/16 23:15 Sodium Chloride 0.9% [Normal Saline] 1,000 ml IV ASDIRECTED 10/11/16 00:15 NS + KCl 20mEq/L [Normal Saline with 20 mEq KCl] 1,000 ml IV ASDIRECTED 10/11/16 03:00 D5 1/2 NS w/ 20 mEq/L KCl 1,000 ml IV ASDIRECTED
== END 2016-10-11 06:14 | disposition home or self-care (01) ==
LOC: JP.ED 22:23
DX: R11.2 Nausea with vomiting, unspecified (principal); R10.13 Epigastric pain; F41.9 Anxiety disorder, unspecified; K20.9 Esophagitis, unspecified; F32.9 Major depressive disorder, single episode, unspecified; F20.9 Schizophrenia, unspecified; F17.210 Nicotine dependence, cigarettes, uncomplicated; Z98.890 Other specified postprocedural states
CPT/HCPCS: 36415; 80048; 96361; 96374; 96376; 99283; 99284; J2405; J3480; J7040

== ENCOUNTER 2017-01-18 21:14 | Emergency (ER) | payer MEDICAID ==
--- NOTE | 2017-01-18 22:03 | EDM.PDOCBH ---
ED HPI GENERAL MEDICAL PROBLEM - General Chief Complaint: Behavioral/Psych Stated Complaint: EVAL Time Seen by Provider: 01/18/17 21:45 Source of Information: Reports: Family History Limitations: Reports: Altered Mental Status, Uncooperative - History of Present Illness INITIAL COMMENTS - FREE TEXT/NARRATIVE: 26-year-old male with chronic schizophrenia has been off his medication for the last 3 months. He is living with his dad who can usually control his behavior with distraction and calming conversations but his dad had to call the police tonight and the ambulance because he has escalated over the past 72 hours to the point where he thinks he is Tevin, is not making sense, hallucinating almost continuously hearing voices, and his father is afraid he may walk out into the freezing cold. The patient himself is not threatening to hurt himself but is clearly not thinking rationally. Onset: Gradual (Worsening over the last 72 hours) Severity: Moderate - Related Data Allergies Allergy/AdvReac Type Severity Reaction Status Date / Time No Known Allergies Allergy Verified 09/26/15 20:28 Home Meds: Home Meds NK [No Known Home Meds] 01/18/17 [History] Past Medical History - Past Health History Medical/Surgical History: Denies Medical/Surgical History Gastrointestinal History: Reports: Gastritis Other Gastrointestinal History: EGD Musculoskeletal History: Reports: Fracture Neurological History: Reports: Concussion Other Neuro History: from playing hockey Psychiatric History: Reports: Anxiety, Depression, Hallucinations, Psych Hospitalization(s), Schizophrenia, Suicidal Ideation - Infectious Disease History Infectious Disease History: Reports: Chicken Pox - Past Surgical History GI Surgical History: Reports: EGD Other GI Surgeries/Procedures: 3 previous visits for hyperemasis 2nd to cannibus use Musculoskeletal Surgical History: Reports: Other (See Below) Other Musculoskeletal Surgeries/Procedures:: right wrist--glass removed Social & Family History - Tobacco Use Smoking Status *Q: Current Every Day Smoker Years of Tobacco use: 10 Packs/Tins Daily: 1.5 Used Tobacco, but Quit: No Second Hand Smoke Exposure: No - Caffeine Use Caffeine Use: Reports: Coffee, Energy Drinks Caffeine Use Comment: 2-3/day - Alcohol Use Days Per Week of Alcohol Use: 0 - Recreational Drug Use Recreational Drug Use: No Drug Use in Last 12 Months: Yes Recreational Drug Type: Reports: Marijuana/Hashish Recreational Drug Use Frequency: Weekly Recreational Drug Last Use: 10/06 - Living Situation & Occupation Living situation: Reports: Single, with Family (disabled by schizophrenia, lives with his Father in [place], [place].) Occupation: Disabled ED ROS GENERAL - Review of Systems Review Of Systems: Unable To Obtain ED EXAM, BEHAVIORAL HEALTH - Physical Exam Exam: See Below Exam Limited By: Uncooperative General Appearance: Alert, No Apparent Distress Eye Exam: Bilateral Eye: EOMI Head: Atraumatic Respiratory/Chest: No Respiratory Distress, Lungs Clear Cardiovascular: Regular Rate, Rhythm Extremities: Normal Inspection Neurological: Alert, Other (Patient isn't cooperating with mental status exam there however has a very flat affect and poor eye contact) Psychiatric: Depressed Mood, Flat Affect Skin Exam: Warm, Dry COURSE, BEHAVIORAL HEALTH COMP - Course Vital Signs: Last Vital Signs Temp 98.1 F 01/19/17 08:24 Pulse 110 H 01/19/17 08:24 Resp 16 01/19/17 08:24 BP 115/49 L 01/19/17 08:24 Pulse Ox 96 01/19/17 08:24 Orders, Labs, Meds: Laboratory Tests 01/18/17 01/18/17 01/19/17 Range/Units 21:30 21:30 03:58 WBC 9.1 (4.5-11.0) K/uL RBC 4.30 (4.30-5.90) M/uL Hgb 13.9 (12.0-15.0) g/dL Hct 40.7 (40.0-54.0) % MCV 95 (80-98) fL MCH 32 H (27-31) pg MCHC 34 (32-36) % Plt Count 301 (150-400) K/uL Neut % (Auto) 57 (36-66) % Lymph % (Auto) 27 (24-44) % [place] % (Auto) 11 H (2-6) % Eos % (Auto) 5 H (2-4) % Baso % (Auto) 1 (0-1) % Sodium 141 (140-148) mmol/L Potassium 3.9 (3.6-5.2) mmol/L Chloride 104 (100-108) mmol/L Carbon Dioxide 30 (21-32) mmol/L Anion Gap 6.6 (5.0-14.0) mmol/L BUN 14 D (7-18) mg/dL Creatinine 1.0 (0.8-1.3) mg/dL Est Cr Clr Drug Dosing 121.79 mL/min Estimated GFR (MDRD) > 60 (>60) Glucose 83 (74-106) mg/dL Calcium 9.3 (8.5-10.1) mg/dL Total Bilirubin 0.3 D (0.2-1.0) mg/dL AST 37 (15-37) U/L ALT 37 (12-78) U/L Alkaline Phosphatase 59 (46-116) U/L Total Protein 6.6 (6.4-8.2) g/dL Albumin 3.6 (3.4-5.0) g/dL Globulin 3.0 (2.3-3.5) g/dL Albumin/Globulin Ratio 1.2 (1.2-2.2) TSH, Ultra Sensitive (0.358-3.740) uIU/mL Urine Color Yellow Urine Appearance Clear Urine pH 6.0 (4.5-8.0) Ur Specific Ward 1.020 (1.008-1.030) Urine Protein Negative (NEGATIVE) mg/dL Urine Glucose (UA) Normal (NEGATIVE) mg/dL Urine Ketones Negative (NEGATIVE) mg/dL Urine Occult Blood Negative (NEGATIVE) Urine Nitrite Negative (NEGAITVE) Urine Bilirubin Negative (NEGATIVE) Urine Urobilinogen Normal (NORMAL) mg/dL Ur Leukocyte Esterase Negative (NEGATIVE) Urine RBC 0-5 (0-5) Urine WBC 0-5 (0-5) Ur Epithelial Cells Rare Amorphous Sediment Few Urine Bacteria Few Urine Mucus Not seen Urine Opiates Screen (NEGATIVE) Ur Oxycodone Screen (NEGATIVE) Urine Methadone Screen (NEGATIVE) Ur Propoxyphene Screen (NEGATIVE) Ur Barbiturates Screen (NEGATIVE) Ur Tricyclics Screen (NEGATIVE) Ur Phencyclidine Scrn (NEGATIVE) Ur Amphetamine Screen (NEGATIVE) U Methamphetamines Scrn (NEGATIVE) Urine MDMA Screen (NEGATIVE) U Benzodiazepines Scrn (NEGATIVE) U Cocaine Metab Screen (NEGATIVE) U Marijuana (THC) Screen (NEGATIVE) Ethyl Alcohol mg/dL 01/19/17 01/19/17 01/19/17 Range/Units 03:58 04:26 04:26 WBC (4.5-11.0) K/uL RBC (4.30-5.90) M/uL Hgb (12.0-15.0) g/dL Hct (40.0-54.0) % MCV (80-98) fL MCH (27-31) pg MCHC (32-36) % Plt Count (150-400) K/uL Neut % (Auto) (36-66) % Lymph % (Auto) (24-44) % [place] % (Auto) (2-6) % Eos % (Auto) (2-4) % Baso % (Auto) (0-1) % Sodium (140-148) mmol/L Potassium (3.6-5.2) mmol/L Chloride (100-108) mmol/L Carbon Dioxide (21-32) mmol/L Anion Gap (5.0-14.0) mmol/L BUN (7-18) mg/dL Creatinine (0.8-1.3) mg/dL Est Cr Clr Drug Dosing mL/min Estimated GFR (MDRD) (>60) Glucose (74-106) mg/dL Calcium (8.5-10.1) mg/dL Total Bilirubin (0.2-1.0) mg/dL AST (15-37) U/L ALT (12-78) U/L Alkaline Phosphatase (46-116) U/L Total Protein (6.4-8.2) g/dL Albumin (3.4-5.0) g/dL Globulin (2.3-3.5) g/dL Albumin/Globulin Ratio (1.2-2.2) TSH, Ultra Sensitive 1.959 (0.358-3.740) uIU/mL Urine Color Urine Appearance Urine pH (4.5-8.0) Ur Specific Ward (1.008-1.030) Urine Protein (NEGATIVE) mg/dL Urine Glucose (UA) (NEGATIVE) mg/dL Urine Ketones (NEGATIVE) mg/dL Urine Occult Blood (NEGATIVE) Urine Nitrite (NEGAITVE) Urine Bilirubin (NEGATIVE) Urine Urobilinogen (NORMAL) mg/dL Ur Leukocyte Esterase (NEGATIVE) Urine RBC (0-5) Urine WBC (0-5) Ur Epithelial Cells Amorphous Sediment Urine Bacteria Urine Mucus Urine Opiates Screen Negative (NEGATIVE) Ur Oxycodone Screen Negative (NEGATIVE) Urine Methadone Screen Negative (NEGATIVE) Ur Propoxyphene Screen Negative (NEGATIVE) Ur Barbiturates Screen Negative (NEGATIVE) Ur Tricyclics Screen Negative (NEGATIVE) Ur Phencyclidine Scrn Negative (NEGATIVE) Ur Amphetamine Screen Negative (NEGATIVE) U Methamphetamines Scrn Positive H (NEGATIVE) Urine MDMA Screen Negative (NEGATIVE) U Benzodiazepines Scrn Negative (NEGATIVE) U Cocaine Metab Screen Negative (NEGATIVE) U Marijuana (THC) Screen Positive H (NEGATIVE) Ethyl Alcohol < 3 mg/dL Medications Discontinued Medications Generic Name Dose Route Start Last Admin Trade Name Flex PRN Reason Stop Dose Admin Haloperidol Lactate 10 mg 01/19/17 03:23 01/19/17 03:58 Haldol IM 01/19/17 03:24 10 mg ONETIME ONE Administration Haloperidol Lactate Confirm 01/19/17 03:24 01/19/17 03:59 Haldol Administered 01/19/17 03:25 Not Given Dose 10 mg .ROUTE .STK-MED ONE Quetiapine Fumarate 25 mg 01/18/17 23:47 01/19/17 05:11 Seroquel PO 01/18/17 23:48 25 mg ONETIME ONE Administration Quetiapine Fumarate Confirm 01/19/17 05:07 01/19/17 05:11 Seroquel Administered 01/19/17 05:08 Not Given Dose 25 mg .ROUTE .STK-MED ONE Re-Assessment/Re-Exam: CBC and CMP were obtained. We attempted to get a UA from the patient but he refused and became somewhat agitated. I told him we were not looking to get him in trouble and expected marijuana to be in his system but that did not change his level of cooperation. His father told me that there is "no way" he can go home again tonight, he just doesn't feel he's got control over his behavior. CBC and CMP were unremarkable, however patient insisted he was not can give us a urine. He became agitated and therefore we had to call the police and to show some force, gave him 10 mg of Haldol IM and within a half hour he was cooperative and gave us a urine. It was positive for marijuana and methamphetamine. TSH was normal, EtOH was negative. [facility] kindly accepted his admission until he is stable. Departure - Departure Time of Disposition: 08:26 Disposition: DC/Tfer to Other 70 Condition: Fair Clinical Impression: Schizophrenia - Discharge Information Referrals: PCP,None [Primary Care Provider] - Forms: ED Department Discharge Care Plan Goals: Patient will be transported to [place] inpatient [facility] facility for psychiatric stabilization and treatment.
[2017-01-18] MEDS ORDERED: QUEtiapine 25 MG Tab PO ONE (23:47)
[2017-01-19] MEDS ORDERED: Haloperidol Lactate 5 MG/ML SDV IM ONE (03:23)
[2017-01-19] MEDS ORDERED: Haloperidol Lactate 5 MG/ML SDV ONE (03:24)
[2017-01-19] MEDS ORDERED: QUEtiapine 25 MG Tab ONE (05:07)
[2017-01-19 08:25] VITALS: BP 115/49
== END 2017-01-19 08:15 | disposition other institution (70) ==
LOC: JP.ED 21:14
DX: F20.9 Schizophrenia, unspecified (principal)
CPT/HCPCS: 36415; 80053; 80305; 81001; 84443; 85025; 96372; 99285; A9270; G0480; J1630

== ENCOUNTER 2017-02-13 06:16 | Emergency (ER) | payer MEDICAID ==
--- NOTE | 2017-02-13 06:41 | EDM.PDOCBH ---
<OfficerAdalberto - Last Filed: 02/13/17 06:38> ED HPI GENERAL MEDICAL PROBLEM - General Chief Complaint: Behavioral/Psych Stated Complaint: EVAL Time Seen by Provider: 02/13/17 06:37 Source of Information: Reports: Patient, Police, RN Notes Reviewed History Limitations: Reports: No Limitations - History of Present Illness INITIAL COMMENTS - FREE TEXT/NARRATIVE: 26-year-old gentleman presents emergency department today with law enforcement for psychiatric evaluation, along enforcement was called by the individuals father because he made statements that he wanted to harm himself however at this time he states he does not want to harm himself he states he was really tired possibly from his trazodone he may have said some things before he was fully awake but he adamantly denies harming himself this time. He does have auditory hallucinations but this is not new he does have a mental health provider which she sees in the clinic however he missed his last appointment due to weather complications. He states the auditory hallucinations have gotten worse over the last 3 months - Related Data Allergies Allergy/AdvReac Type Severity Reaction Status Date / Time No Known Allergies Allergy Verified 02/13/17 06:20 Home Meds: Home Meds Lurasidone [Latuda] 40 mg PO DAILY 02/13/17 [History] traZODone [traZODone] 150 mg PO BEDTIME 02/13/17 [History] Past Medical History Gastrointestinal History: Reports: Gastritis Other Gastrointestinal History: EGD Musculoskeletal History: Reports: Fracture Neurological History: Reports: Concussion Other Neuro History: from playing hockey Psychiatric History: Reports: Anxiety, Depression, Hallucinations, Psych Hospitalization(s), Schizophrenia, Suicidal Ideation - Infectious Disease History Infectious Disease History: Reports: Chicken Pox - Past Surgical History GI Surgical History: Reports: EGD Other GI Surgeries/Procedures: 3 previous visits for hyperemasis 2nd to cannibus use Musculoskeletal Surgical History: Reports: Other (See Below) Other Musculoskeletal Surgeries/Procedures:: right wrist--glass removed Social & Family History - Tobacco Use Smoking Status *Q: Current Every Day Smoker Years of Tobacco use: 10 Packs/Tins Daily: 2 Used Tobacco, but Quit: No Second Hand Smoke Exposure: No - Caffeine Use Caffeine Use: Reports: Coffee, Energy Drinks, Soda, Tea Caffeine Use Comment: 2-3/day - Alcohol Use Days Per Week of Alcohol Use: 0 - Recreational Drug Use Recreational Drug Use: Yes Drug Use in Last 12 Months: Yes Recreational Drug Type: Reports: Marijuana/Hashish Recreational Drug Use Frequency: Socially Recreational Drug Last Use: 10/06 - Living Situation & Occupation Living situation: Reports: Single, with Family (disabled by schizophrenia, lives with his Father in [place], [place].) Occupation: Disabled ED ROS GENERAL - Review of Systems Review Of Systems: See Below Constitutional: Reports: No Symptoms HEENT: Reports: No Symptoms Respiratory: Reports: No Symptoms Cardiovascular: Reports: No Symptoms GI/Abdominal: Reports: No Symptoms : Reports: No Symptoms Neurological: Reports: No Symptoms Psychiatric: Reports: No Symptoms ED EXAM, BEHAVIORAL HEALTH - Physical Exam Exam: See Below Exam Limited By: No Limitations General Appearance: Alert, WD/WN, No Apparent Distress Respiratory/Chest: No Respiratory Distress Psychiatric: Alert, Normal Affect, Normal Cognition, Normal Mood, Oriented, Auditory Hallucinations. No: Depressed Mood, Flat Affect, Tearful, Agitated, Disoriented, Poor Eye Contact, Uncooperative, Homicidal Thoughts, Suicidal Plan , Suicidal Thoughts, Visual Hallucinations COURSE, BEHAVIORAL HEALTH COMP - Course Vital Signs: Last Vital Signs Temp 37.3 C 02/13/17 06:43 Pulse 90 02/13/17 06:43 Resp 17 02/13/17 06:43 BP 115/82 02/13/17 06:43 Pulse Ox 99 02/13/17 06:43 Orders, Labs, Meds: Medications Discontinued Medications Generic Name Dose Route Start Last Admin Trade Name Freq PRN Reason Stop Dose Admin Nicotine 21 mg 02/13/17 09:02 Habitrol TRDERM 02/13/17 09:03 ONETIME ONE Departure - Departure Disposition: El[facility] 07 Clinical Impression: Suicidal ideation Schizophrenia Qualifiers: Schizophrenia type: unspecified Qualified Code(s): F20.9 - Schizophrenia, unspecified - Discharge Information Referrals: PCP,None [Primary Care Provider] - Forms: ED Department Discharge <Ashutosh Kimbrough - Last Filed: 02/13/17 09:06> ED HPI GENERAL MEDICAL PROBLEM denies pain Pain Score (Numeric/FACES): 0 Departure - Departure Time of Disposition: 08:50 Condition: Good
[2017-02-13 06:43] VITALS: BP 115/82
[2017-02-13] MEDS ORDERED: Nicotine 21 MG/24 Hr Patch TRDERM ONE (09:02)
== END 2017-02-13 09:10 | disposition left against medical advice (07) ==
LOC: JP.ED 06:16
DX: R45.851 Suicidal ideations (principal); F20.9 Schizophrenia, unspecified; F17.210 Nicotine dependence, cigarettes, uncomplicated; F32.9 Major depressive disorder, single episode, unspecified; Z79.899 Other long term (current) drug therapy
CPT/HCPCS: 99284; 99285

== ENCOUNTER 2017-02-13 09:03 | Emergency (ER) | payer MEDICAID ==
--- NOTE | 2017-02-13 09:16 | EDM.PDOCBH ---
Addendum entered and electronically signed by Ashutosh Kimbrough MD 02/16/17 22: 01: Josse is doing well this evening. Asks only for some ice water. Says he if feeling a little tired. Ambulates to the rest room without problems. Is much more cooperative and pleasant than on the first day of his ER visit when I first became acquainted with him. Addendum entered and electronically signed by Ashutosh Kimbrough MD 02/16/17 19: 47: Original Note: <Matthew Tena - Last Filed: 02/14/17 14:57> ED HPI GENERAL MEDICAL PROBLEM - General Chief Complaint: Behavioral/Psych Stated Complaint: EVAL Time Seen by Provider: 02/13/17 09:05 - Related Data Allergies Allergy/AdvReac Type Severity Reaction Status Date / Time No Known Allergies Allergy Verified 02/13/17 09:18 Home Meds: Home Meds Lurasidone [Latuda] 40 mg PO DAILY 02/13/17 [History] traZODone [traZODone] 150 mg PO BEDTIME 02/13/17 [History] COURSE, BEHAVIORAL HEALTH COMP - Course Vital Signs: Last Vital Signs Temp 36.4 C 02/17/17 03:27 Pulse 72 02/17/17 03:27 Resp 17 02/17/17 03:27 BP 116/71 02/17/17 03:27 Pulse Ox 96 02/17/17 03:27 Orders, Labs, Meds: Medication Orders Diphenhydramine HCl (Benadryl) 25 mg PO Q4H PRN PRN Reason: Agitation Last Admin: 02/15/17 12:00 Dose: 25 mg Lurasidone HCl (Latuda) 40 mg PO DAILY [facility] Last Admin: 02/18/17 10:04 Dose: 40 mg Admin: 02/17/17 10:10 Dose: 40 mg Admin: 02/16/17 09:18 Dose: 40 mg Admin: 02/15/17 09:56 Dose: 40 mg Admin: 02/14/17 09:56 Dose: 40 mg Admin: 02/13/17 11:56 Dose: 40 mg Trazodone HCl (Trazodone) 150 mg PO BEDTIME [facility] Last Admin: 02/17/17 20:16 Dose: 150 mg Admin: 02/17/17 03:33 Dose: 150 mg Admin: 02/15/17 22:24 Dose: 150 mg Laboratory Tests 02/13/17 02/13/17 02/13/17 Range/Units 13:39 13:39 13:39 WBC 13.0 H (4.5-11.0) K/uL RBC 4.99 (4.30-5.90) M/uL Hgb 16.3 H D (12.0-15.0) g/dL Hct 46.2 (40.0-54.0) % MCV 93 (80-98) fL MCH 33 H (27-31) pg MCHC 35 (32-36) % Plt Count 404 H (150-400) K/uL Sodium 140 (140-148) mmol/L Potassium 3.6 (3.6-5.2) mmol/L Chloride 101 (100-108) mmol/L Carbon Dioxide 23 (21-32) mmol/L Anion Gap 15.7 H (5.0-14.0) mmol/L BUN 12 (7-18) mg/dL Creatinine 1.2 (0.8-1.3) mg/dL Est Cr Clr Drug Dosing 100.85 mL/min Estimated GFR (MDRD) > 60 (>60) Glucose 132 H (74-106) mg/dL Calcium 9.8 (8.5-10.1) mg/dL Urine Color Urine Appearance Urine pH (4.5-8.0) Ur Specific [place] (1.008-1.030) Urine Protein (NEGATIVE) mg/dL Urine Glucose (UA) (NEGATIVE) mg/dL Urine Ketones (NEGATIVE) mg/dL Urine Occult Blood (NEGATIVE) Urine Nitrite (NEGAITVE) Urine Bilirubin (NEGATIVE) Urine Urobilinogen (NORMAL) mg/dL Ur Leukocyte Esterase (NEGATIVE) Urine RBC (0-5) Urine WBC (0-5) Ur Epithelial Cells Amorphous Sediment Urine Bacteria Urine Mucus Salicylates (2.0-20.0) mg/dL Urine Opiates Screen (NEGATIVE) Ur Oxycodone Screen (NEGATIVE) Urine Methadone Screen (NEGATIVE) Ur Propoxyphene Screen (NEGATIVE) Acetaminophen (10.0-30.0) ug/mL Ur Barbiturates Screen (NEGATIVE) Ur Tricyclics Screen (NEGATIVE) Ur Phencyclidine Scrn (NEGATIVE) Ur Amphetamine Screen (NEGATIVE) U Methamphetamines Scrn (NEGATIVE) Urine MDMA Screen (NEGATIVE) U Benzodiazepines Scrn (NEGATIVE) U Cocaine Metab Screen (NEGATIVE) U Marijuana (THC) Screen (NEGATIVE) Ethyl Alcohol < 3 mg/dL 02/13/17 02/13/17 02/13/17 Range/Units 13:39 13:39 13:51 WBC (4.5-11.0) K/uL RBC (4.30-5.90) M/uL Hgb (12.0-15.0) g/dL Hct (40.0-54.0) % MCV (80-98) fL MCH (27-31) pg MCHC (32-36) % Plt Count (150-400) K/uL Sodium (140-148) mmol/L Potassium (3.6-5.2) mmol/L Chloride (100-108) mmol/L Carbon Dioxide (21-32) mmol/L Anion Gap (5.0-14.0) mmol/L BUN (7-18) mg/dL Creatinine (0.8-1.3) mg/dL Est Cr Clr Drug Dosing mL/min Estimated GFR (MDRD) (>60) Glucose (74-106) mg/dL Calcium (8.5-10.1) mg/dL Urine Color Yellow Urine Appearance Slightly cloudy Urine pH 6.0 (4.5-8.0) Ur Specific [place] 1.025 (1.008-1.030) Urine Protein Trace (NEGATIVE) mg/dL Urine Glucose (UA) Normal (NEGATIVE) mg/dL Urine Ketones 15 H (NEGATIVE) mg/dL Urine Occult Blood Large (NEGATIVE) Urine Nitrite Negative (NEGAITVE) Urine Bilirubin Negative (NEGATIVE) Urine Urobilinogen 1 (NORMAL) mg/dL Ur Leukocyte Esterase Negative (NEGATIVE) Urine RBC 30-40 H (0-5) Urine WBC 0-5 (0-5) Ur Epithelial Cells Few Amorphous Sediment Not seen Urine Bacteria Few Urine Mucus Many Salicylates 2.4 (2.0-20.0) mg/dL Urine Opiates Screen (NEGATIVE) Ur Oxycodone Screen (NEGATIVE) Urine Methadone Screen (NEGATIVE) Ur Propoxyphene Screen (NEGATIVE) Acetaminophen 0.0 L (10.0-30.0) ug/mL Ur Barbiturates Screen (NEGATIVE) Ur Tricyclics Screen (NEGATIVE) Ur Phencyclidine Scrn (NEGATIVE) Ur Amphetamine Screen (NEGATIVE) U Methamphetamines Scrn (NEGATIVE) Urine MDMA Screen (NEGATIVE) U Benzodiazepines Scrn (NEGATIVE) U Cocaine Metab Screen (NEGATIVE) U Marijuana (THC) Screen (NEGATIVE) Ethyl Alcohol mg/dL 02/13/17 Range/Units 13:58 WBC (4.5-11.0) K/uL RBC (4.30-5.90) M/uL Hgb (12.0-15.0) g/dL Hct (40.0-54.0) % MCV (80-98) fL MCH (27-31) pg MCHC (32-36) % Plt Count (150-400) K/uL Sodium (140-148) mmol/L Potassium (3.6-5.2) mmol/L Chloride (100-108) mmol/L Carbon Dioxide (21-32) mmol/L Anion Gap (5.0-14.0) mmol/L BUN (7-18) mg/dL Creatinine (0.8-1.3) mg/dL Est Cr Clr Drug Dosing mL/min Estimated GFR (MDRD) (>60) Glucose (74-106) mg/dL Calcium (8.5-10.1) mg/dL Urine Color Urine Appearance Urine pH (4.5-8.0) Ur Specific [place] (1.008-1.030) Urine Protein (NEGATIVE) mg/dL Urine Glucose (UA) (NEGATIVE) mg/dL Urine Ketones (NEGATIVE) mg/dL Urine Occult Blood (NEGATIVE) Urine Nitrite (NEGAITVE) Urine Bilirubin (NEGATIVE) Urine Urobilinogen (NORMAL) mg/dL Ur Leukocyte Esterase (NEGATIVE) Urine RBC (0-5) Urine WBC (0-5) Ur Epithelial Cells Amorphous Sediment Urine Bacteria Urine Mucus Salicylates (2.0-20.0) mg/dL Urine Opiates Screen Negative (NEGATIVE) Ur Oxycodone Screen Negative (NEGATIVE) Urine Methadone Screen Negative (NEGATIVE) Ur Propoxyphene Screen Negative (NEGATIVE) Acetaminophen (10.0-30.0) ug/mL Ur Barbiturates Screen Negative (NEGATIVE) Ur Tricyclics Screen Negative (NEGATIVE) Ur Phencyclidine Scrn Negative (NEGATIVE) Ur Amphetamine Screen Positive H (NEGATIVE) U Methamphetamines Scrn Positive H (NEGATIVE) Urine MDMA Screen Positive H (NEGATIVE) U Benzodiazepines Scrn Positive H (NEGATIVE) U Cocaine Metab Screen Negative (NEGATIVE) U Marijuana (THC) Screen Positive H (NEGATIVE) Ethyl Alcohol mg/dL Medications Generic Name Dose Route Start Last Admin Trade Name Freq PRN Reason Stop Dose Admin Diphenhydramine HCl 25 mg 02/15/17 11:54 02/15/17 12:00 Benadryl PO 25 mg Q4H PRN Administration Agitation Lurasidone HCl 40 mg 02/13/17 11:00 02/18/17 10:04 Latuda PO 40 mg DAILY [facility] Administration Trazodone HCl 150 mg 02/15/17 21:00 02/17/17 20:16 Trazodone PO 150 mg BEDTIME [facility] Administration Discontinued Medications Generic Name Dose Route Start Last Admin Trade Name Freq PRN Reason Stop Dose Admin Diphenhydramine HCl 25 mg 02/14/17 13:51 02/14/17 13:57 Benadryl PO 02/14/17 13:52 25 mg ONETIME ONE Administration Diphenhydramine HCl 50 mg 02/16/17 13:10 02/16/17 13:15 Benadryl PO 02/16/17 13:11 50 mg ONETIME ONE Administration Diphenhydramine HCl 50 mg 02/17/17 12:38 02/17/17 12:49 Benadryl IM 02/17/17 12:39 50 mg ONETIME ONE Administration Haloperidol Lactate 10 mg 02/13/17 13:17 02/13/17 13:25 Haldol IM 02/13/17 13:18 10 mg ONETIME ONE Administration Lorazepam 2 mg 02/13/17 10:50 02/13/17 11:56 Ativan PO 02/13/17 10:51 2 mg ONETIME ONE Administration Lorazepam 1 mg 02/16/17 13:56 02/16/17 14:06 Ativan IM 02/16/17 13:57 1 mg ONETIME ONE Administration Lorazepam 1 mg 02/17/17 12:38 02/17/17 12:48 Ativan IM 02/17/17 12:39 1 mg ONETIME ONE Administration Lorazepam 1 mg 02/18/17 15:41 02/18/17 15:49 Ativan PO 02/18/17 15:42 1 mg ONETIME ONE Administration Nicotine 14 mg 02/17/17 10:51 02/17/17 11:05 Habitrol HARLEYM 02/17/17 10:52 14 mg ONETIME ONE Administration Nicotine 14 mg 02/18/17 12:27 02/18/17 12:33 Habitrol TRDERM 02/18/17 12:28 14 mg ONETIME ONE Administration Re-Assessment/Re-Exam: 3 PM, February 14. Patient was becoming somewhat agitated and angry that he wasn' t able leave and smokes cigarettes. He was offered nicotine replacement but refused. He then asked for something to help him sleep and relax and was given 25 mg of oral Benadryl. He was physically stable, vital signs stable, no respiratory distress. Departure - Departure Disposition: Still A Patient 30 Clinical Impression: Suicidal ideations, Agitation, Polysubstance abuse, Medical clearance for psychiatric admission - Discharge Information Referrals: PCP,None [Primary Care Provider] - Forms: ED Department Discharge <Adalberto Mendoza - Last Filed: 02/15/17 09:40> COURSE, BEHAVIORAL HEALTH COMP - Course Re-Assessment/Re-Exam: Discussed his care with him this morning he has no complaints or issues at this time updated him on the recent placement of 72 hour hold as well as the removal of the stay for his commitment and the continuing work on placement issues, he states all of his needs are met at this time <Ashutosh Kimbrough - Last Filed: 02/16/17 17:59> ED HPI GENERAL MEDICAL PROBLEM - General Source of Information: Reports: Patient, Old Records History Limitations: Reports: No Limitations - History of Present Illness INITIAL COMMENTS - FREE TEXT/NARRATIVE: 26 yo male with a pHx of mental health disorder eloped after being brought in initially for suicidal threats. Police caught up with him and returned him unharmed to the ER. Since being in the ER he denies suicidal ideation, says he was just using that statement "as an expression". Claims he is Tevin Kolby. Is unwilling to allow us to draw blood and refuses to give us a urine specimen. Is not welcome back at his father's. His father is pretty sure the son is using street drugs. Has used meth and marijuana in the past apparently. We had acceptance from [place], [place], where Josse was recently treated. The courts are working on issuing an order for placement in a care home. The hearing for this is to be held at 4 pm today. No care home placement would therefore be possible today. Onset: Today Onset Date: 02/13/17 Duration: Hour(s): Severity: Mild Improves with: Reports: Other (? time) Worsens with: Reports: None Context: Reports: Other (Hx of mental illness) Associated Symptoms: Reports: No Other Symptoms Treatments [employer]: Reports: Other (see below) (none) Past Medical History - Past Health History Medical/Surgical History: Denies Medical/Surgical History Gastrointestinal History: Reports: Gastritis Other Gastrointestinal History: EGD Musculoskeletal History: Reports: Fracture Neurological History: Reports: Concussion Other Neuro History: from playing hockey Psychiatric History: Reports: Anxiety, Depression, Hallucinations, Psych Hospitalization(s), Schizophrenia, Suicidal Ideation - Infectious Disease History Infectious Disease History: Reports: Chicken Pox - Past Surgical History GI Surgical History: Reports: EGD Other GI Surgeries/Procedures: 3 previous visits for hyperemasis 2nd to cannibus use Musculoskeletal Surgical History: Reports: Other (See Below) Other Musculoskeletal Surgeries/Procedures:: right wrist--glass removed Social & Family History - Tobacco Use Smoking Status *Q: Current Every Day Smoker Years of Tobacco use: 10 Packs/Tins Daily: 2 Used Tobacco, but Quit: No Second Hand Smoke Exposure: No - Caffeine Use Caffeine Use: Reports: Coffee, Energy Drinks, Soda, Tea Caffeine Use Comment: 2-3/day - Alcohol Use Days Per Week of Alcohol Use: 0 - Recreational Drug Use Recreational Drug Use: Yes Drug Use in Last 12 Months: Yes Recreational Drug Type: Reports: Marijuana/Hashish Recreational Drug Use Frequency: Socially Recreational Drug Last Use: 10/06 - Living Situation & Occupation Living situation: Reports: Single, with Family (disabled by schizophrenia, lives with his Father in [place], [place].) Occupation: Disabled ED ROS GENERAL - Review of Systems Review Of Systems: See Below Constitutional: Reports: No Symptoms HEENT: Reports: No Symptoms Respiratory: Reports: No Symptoms Cardiovascular: Reports: No Symptoms Endocrine: Reports: No Symptoms GI/Abdominal: Reports: Hematochezia (reported by father, not patient.) : Reports: No Symptoms Musculoskeletal: Reports: No Symptoms Skin: Reports: No Symptoms Neurological: Reports: No Symptoms Psychiatric: Reports: No Symptoms Hematologic/Lymphatic: Reports: No Symptoms Immunologic: Reports: No Symptoms ED EXAM, BEHAVIORAL HEALTH - Physical Exam Exam: See Below Exam Limited By: No Limitations General Appearance: Alert, WD/WN, No Apparent Distress Eye Exam: Bilateral Eye: Normal Inspection Ears: Normal External Exam, Normal Canal, Hearing Grossly Normal Nose: Normal Inspection, Normal Mucosa, No Blood Throat/Mouth: Normal Voice, No Airway Compromise Head: Atraumatic, Normocephalic Neck: Normal Inspection Respiratory/Chest: No Respiratory Distress, No Accessory Muscle Use Cardiovascular: Regular Rate, Rhythm Extremities: Normal Inspection Neurological: Alert, Normal Mood/Affect, CN II-XII Intact, Normal Cognition, Normal Gait, No Motor/Sensory Deficits, Oriented x 3 Psychiatric: Alert, Normal Affect, Normal Cognition, Normal Mood Skin Exam: Warm, Dry, Intact, Normal color COURSE, BEHAVIORAL HEALTH COMP - Course Vital Signs: Last Vital Signs Temp 36.4 C 02/17/17 03:27 Pulse 72 02/17/17 03:27 Resp 17 02/17/17 03:27 BP 116/71 02/17/17 03:27 Pulse Ox 96 02/17/17 03:27 Orders, Labs, Meds: Medication Orders Diphenhydramine HCl (Benadryl) 25 mg PO Q4H PRN PRN Reason: Agitation Last Admin: 02/15/17 12:00 Dose: 25 mg Lurasidone HCl (Latuda) 40 mg PO DAILY [facility] Last Admin: 02/18/17 10:04 Dose: 40 mg Admin: 02/17/17 10:10 Dose: 40 mg Admin: 02/16/17 09:18 Dose: 40 mg Admin: 02/15/17 09:56 Dose: 40 mg Admin: 02/14/17 09:56 Dose: 40 mg Admin: 02/13/17 11:56 Dose: 40 mg Trazodone HCl (Trazodone) 150 mg PO BEDTIME [facility] Last Admin: 02/17/17 20:16 Dose: 150 mg Admin: 02/17/17 03:33 Dose: 150 mg Admin: 02/15/17 22:24 Dose: 150 mg Laboratory Tests 02/13/17 02/13/17 02/13/17 Range/Units 13:39 13:39 13:39 WBC 13.0 H (4.5-11.0) K/uL RBC 4.99 (4.30-5.90) M/uL Hgb 16.3 H D (12.0-15.0) g/dL Hct 46.2 (40.0-54.0) % MCV 93 (80-98) fL MCH 33 H (27-31) pg MCHC 35 (32-36) % Plt Count 404 H (150-400) K/uL Sodium 140 (140-148) mmol/L Potassium 3.6 (3.6-5.2) mmol/L Chloride 101 (100-108) mmol/L Carbon Dioxide 23 (21-32) mmol/L Anion Gap 15.7 H (5.0-14.0) mmol/L BUN 12 (7-18) mg/dL Creatinine 1.2 (0.8-1.3) mg/dL Est Cr Clr Drug Dosing 100.85 mL/min Estimated GFR (MDRD) > 60 (>60) Glucose 132 H (74-106) mg/dL Calcium 9.8 (8.5-10.1) mg/dL Urine Color Urine Appearance Urine pH (4.5-8.0) Ur Specific [place] (1.008-1.030) Urine Protein (NEGATIVE) mg/dL Urine Glucose (UA) (NEGATIVE) mg/dL Urine Ketones (NEGATIVE) mg/dL Urine Occult Blood (NEGATIVE) Urine Nitrite (NEGAITVE) Urine Bilirubin (NEGATIVE) Urine Urobilinogen (NORMAL) mg/dL Ur Leukocyte Esterase (NEGATIVE) Urine RBC (0-5) Urine WBC (0-5) Ur Epithelial Cells Amorphous Sediment Urine Bacteria Urine Mucus Salicylates (2.0-20.0) mg/dL Urine Opiates Screen (NEGATIVE) Ur Oxycodone Screen (NEGATIVE) Urine Methadone Screen (NEGATIVE) Ur Propoxyphene Screen (NEGATIVE) Acetaminophen (10.0-30.0) ug/mL Ur Barbiturates Screen (NEGATIVE) Ur Tricyclics Screen (NEGATIVE) Ur Phencyclidine Scrn (NEGATIVE) Ur Amphetamine Screen (NEGATIVE) U Methamphetamines Scrn (NEGATIVE) Urine MDMA Screen (NEGATIVE) U Benzodiazepines Scrn (NEGATIVE) U Cocaine Metab Screen (NEGATIVE) U Marijuana (THC) Screen (NEGATIVE) Ethyl Alcohol < 3 mg/dL 02/13/17 02/13/17 02/13/17 Range/Units 13:39 13:39 13:51 WBC (4.5-11.0) K/uL RBC (4.30-5.90) M/uL Hgb (12.0-15.0) g/dL Hct (40.0-54.0) % MCV (80-98) fL MCH (27-31) pg MCHC (32-36) % Plt Count (150-400) K/uL Sodium (140-148) mmol/L Potassium (3.6-5.2) mmol/L Chloride (100-108) mmol/L Carbon Dioxide (21-32) mmol/L Anion Gap (5.0-14.0) mmol/L BUN (7-18) mg/dL Creatinine (0.8-1.3) mg/dL Est Cr Clr Drug Dosing mL/min Estimated GFR (MDRD) (>60) Glucose (74-106) mg/dL Calcium (8.5-10.1) mg/dL Urine Color Yellow Urine Appearance Slightly cloudy Urine pH 6.0 (4.5-8.0) Ur Specific [place] 1.025 (1.008-1.030) Urine Protein Trace (NEGATIVE) mg/dL Urine Glucose (UA) Normal (NEGATIVE) mg/dL Urine Ketones 15 H (NEGATIVE) mg/dL Urine Occult Blood Large (NEGATIVE) Urine Nitrite Negative (NEGAITVE) Urine Bilirubin Negative (NEGATIVE) Urine Urobilinogen 1 (NORMAL) mg/dL Ur Leukocyte Esterase Negative (NEGATIVE) Urine RBC 30-40 H (0-5) Urine WBC 0-5 (0-5) Ur Epithelial Cells Few Amorphous Sediment Not seen Urine Bacteria Few Urine Mucus Many Salicylates 2.4 (2.0-20.0) mg/dL Urine Opiates Screen (NEGATIVE) Ur Oxycodone Screen (NEGATIVE) Urine Methadone Screen (NEGATIVE) Ur Propoxyphene Screen (NEGATIVE) Acetaminophen 0.0 L (10.0-30.0) ug/mL Ur Barbiturates Screen (NEGATIVE) Ur Tricyclics Screen (NEGATIVE) Ur Phencyclidine Scrn (NEGATIVE) Ur Amphetamine Screen (NEGATIVE) U Methamphetamines Scrn (NEGATIVE) Urine MDMA Screen (NEGATIVE) U Benzodiazepines Scrn (NEGATIVE) U Cocaine Metab Screen (NEGATIVE) U Marijuana (THC) Screen (NEGATIVE) Ethyl Alcohol mg/dL 02/13/17 Range/Units 13:58 WBC (4.5-11.0) K/uL RBC (4.30-5.90) M/uL Hgb (12.0-15.0) g/dL Hct (40.0-54.0) % MCV (80-98) fL MCH (27-31) pg MCHC (32-36) % Plt Count (150-400) K/uL Sodium (140-148) mmol/L Potassium (3.6-5.2) mmol/L Chloride (100-108) mmol/L Carbon Dioxide (21-32) mmol/L Anion Gap (5.0-14.0) mmol/L BUN (7-18) mg/dL Creatinine (0.8-1.3) mg/dL Est Cr Clr Drug Dosing mL/min Estimated GFR (MDRD) (>60) Glucose (74-106) mg/dL Calcium (8.5-10.1) mg/dL Urine Color Urine Appearance Urine pH (4.5-8.0) Ur Specific [place] (1.008-1.030) Urine Protein (NEGATIVE) mg/dL Urine Glucose (UA) (NEGATIVE) mg/dL Urine Ketones (NEGATIVE) mg/dL Urine Occult Blood (NEGATIVE) Urine Nitrite (NEGAITVE) Urine Bilirubin (NEGATIVE) Urine Urobilinogen (NORMAL) mg/dL Ur Leukocyte Esterase (NEGATIVE) Urine RBC (0-5) Urine WBC (0-5) Ur Epithelial Cells Amorphous Sediment Urine Bacteria Urine Mucus Salicylates (2.0-20.0) mg/dL Urine Opiates Screen Negative (NEGATIVE) Ur Oxycodone Screen Negative (NEGATIVE) Urine Methadone Screen Negative (NEGATIVE) Ur Propoxyphene Screen Negative (NEGATIVE) Acetaminophen (10.0-30.0) ug/mL Ur Barbiturates Screen Negative (NEGATIVE) Ur Tricyclics Screen Negative (NEGATIVE) Ur Phencyclidine Scrn Negative (NEGATIVE) Ur Amphetamine Screen Positive H (NEGATIVE) U Methamphetamines Scrn Positive H (NEGATIVE) Urine MDMA Screen Positive H (NEGATIVE) U Benzodiazepines Scrn Positive H (NEGATIVE) U Cocaine Metab Screen Negative (NEGATIVE) U Marijuana (THC) Screen Positive H (NEGATIVE) Ethyl Alcohol mg/dL Medications Generic Name Dose Route Start Last Admin Trade Name Freq PRN Reason Stop Dose Admin Diphenhydramine HCl 25 mg 02/15/17 11:54 02/15/17 12:00 Benadryl PO 25 mg Q4H PRN Administration Agitation Lurasidone HCl 40 mg 02/13/17 11:00 02/18/17 10:04 Latuda PO 40 mg DAILY [facility]LIN Administration Trazodone HCl 150 mg 02/15/17 21:00 02/17/17 20:16 Trazodone PO 150 mg BEDTIME [facility] Administration Discontinued Medications Generic Name Dose Route Start Last Admin Trade Name Flex PRN Reason Stop Dose Admin Diphenhydramine HCl 25 mg 02/14/17 13:51 02/14/17 13:57 Benadryl PO 02/14/17 13:52 25 mg ONETIME ONE Administration Diphenhydramine HCl 50 mg 02/16/17 13:10 02/16/17 13:15 Benadryl PO 02/16/17 13:11 50 mg ONETIME ONE Administration Diphenhydramine HCl 50 mg 02/17/17 12:38 02/17/17 12:49 Benadryl IM 02/17/17 12:39 50 mg ONETIME ONE Administration Haloperidol Lactate 10 mg 02/13/17 13:17 02/13/17 13:25 Haldol IM 02/13/17 13:18 10 mg ONETIME ONE Administration Lorazepam 2 mg 02/13/17 10:50 02/13/17 11:56 Ativan PO 02/13/17 10:51 2 mg ONETIME ONE Administration Lorazepam 1 mg 02/16/17 13:56 02/16/17 14:06 Ativan IM 02/16/17 13:57 1 mg ONETIME ONE Administration Lorazepam 1 mg 02/17/17 12:38 02/17/17 12:48 Ativan IM 02/17/17 12:39 1 mg ONETIME ONE Administration Lorazepam 1 mg 02/18/17 15:41 02/18/17 15:49 Ativan PO 02/18/17 15:42 1 mg ONETIME ONE Administration Nicotine 14 mg 02/17/17 10:51 02/17/17 11:05 Habitrol TRDERM 02/17/17 10:52 14 mg ONETIME ONE Administration Nicotine 14 mg 02/18/17 12:27 02/18/17 12:33 Habitrol TRDERM 02/18/17 12:28 14 mg ONETIME ONE Administration Medical Clearance: 02/13/17 14:11 Threatened staff here so local police assisted in gathering blood/urine for testing [facility] [place] [place] Departure - Departure Time of Disposition: 18:00 <Dorothy Munoz - Last Filed: 02/18/17 19:14> COURSE, BEHAVIORAL HEALTH COMP - Course Medical Clearance: 02/16/17 08:00 pt was cooperative and only was asking for something for sleep at 7 pm.His trazadone was given at 8 pm a hour earlier. He othrwise was stable, 02/16/17 08:01 02/17/17 19:56 pt has had a good day. He is asking to shower and do personal cares. Placement has been found for him and he will go the first part of the week. 02/18/17 19:13 Josse continues to be cooprative. He is compliant in taking his meds. He will be transfered tomorrow to a unit in [place].
[2017-02-13] MEDS: LORazepam 1 MG Tab PO ONE ×2 (10:58→11:56)
[2017-02-13] MEDS: Lurasidone 40 MG Tab PO SCH (11:56)
[2017-02-13] MEDS ORDERED: Haloperidol Lactate 5 MG/ML SDV IM ONE (13:17)
[2017-02-14] MEDS: Lurasidone 40 MG Tab PO SCH (09:56)
[2017-02-14] MEDS ORDERED: diphenhydrAMINE 25 MG Cap PO ONE (13:51)
[2017-02-15] MEDS: Lurasidone 40 MG Tab PO SCH (09:56)
[2017-02-15] MEDS ORDERED: diphenhydrAMINE 25 MG Cap PO PRN (11:54)
[2017-02-15] MEDS: traZODone 50 MG Tab PO SCH (22:24)
[2017-02-16] MEDS: Lurasidone 40 MG Tab PO SCH (09:18)
[2017-02-16] MEDS ORDERED: diphenhydrAMINE 25 MG Cap PO ONE (13:10)
[2017-02-16] MEDS ORDERED: LORazepam 2 MG/ML SDV IM ONE (13:56)
[2017-02-17] MEDS: traZODone 50 MG Tab PO SCH ×2 (03:33→20:16)
[2017-02-17] MEDS: Lurasidone 40 MG Tab PO SCH (10:10)
[2017-02-17] MEDS ORDERED: Nicotine 14 MG/24 Hr Patch TRDERM ONE (10:51)
[2017-02-17] MEDS ORDERED: diphenhydrAMINE 50 MG/ML SDV IM ONE (12:38)
[2017-02-17] MEDS ORDERED: LORazepam 2 MG/ML SDV IM ONE (12:38)
[2017-02-18] MEDS: Lurasidone 40 MG Tab PO SCH (10:04)
[2017-02-18] MEDS ORDERED: Nicotine 14 MG/24 Hr Patch TRDERM ONE (12:27)
[2017-02-18] MEDS ORDERED: LORazepam 1 MG Tab PO ONE (15:41)
[2017-02-18] MEDS: traZODone 50 MG Tab PO SCH (21:29)
[2017-02-19 07:28] VITALS: BP 125/78
[2017-02-19] MEDS: Lurasidone 40 MG Tab PO SCH (08:54)
[2017-02-19] MEDS ORDERED: LORazepam 1 MG Tab PO ONE (11:20)
== END 2017-02-19 11:40 | disposition still patient (30) ==
LOC: JP.ED 09:03
DX: R45.851 Suicidal ideations (principal); R45.1 Restlessness and agitation; F19.10 Other psychoactive substance abuse, uncomplicated; F32.9 Major depressive disorder, single episode, unspecified; F17.210 Nicotine dependence, cigarettes, uncomplicated; Z79.899 Other long term (current) drug therapy
CPT/HCPCS: 36415; 80048; 80305; 81001; 85027; 96372; 99284; A9270; G0480; J1200; J1630; J2060

== ENCOUNTER 2018-10-26 10:49 | Emergency (ER) | payer MEDICAID ==
[2018-10-26] MEDS ORDERED: LORazepam 2 MG/ML SDV IVPUSH ONE ×2 (11:09→14:32)
[2018-10-26] MEDS ORDERED: Ketorolac 30 MG/ML SDV IVPUSH ONE (11:09)
[2018-10-26] MEDS ORDERED: Ondansetron 4 MG/2 ML SDV IVPUSH ONE (11:09)
--- NOTE | 2018-10-26 11:15 | EDM.PDOC ---
ED HPI GENERAL MEDICAL PROBLEM - General Chief Complaint: Abdominal Pain Stated Complaint: ILL, ALLERGIES Time Seen by Provider: 10/26/18 11:00 Source of Information: Reports: Patient History Limitations: Reports: No Limitations - History of Present Illness INITIAL COMMENTS - FREE TEXT/NARRATIVE: 28-year-old male with chronic psychiatric issues, in and out of inpatient psychiatric treatment over the last year and a half who has a known past history of hyperemesis cannabis syndrome, smoked marijuana with friends last night and this morning woke up very ill. He has persistent cycling nausea and vomiting with abdominal cramping for the past 4 hours. No fevers or chills. No diarrhea. Associated Symptoms: Reports: Loss of Appetite, Malaise, Nausea/Vomiting. Denies: Fever/Chills, Shortness of Breath Abdomen Pain Score (Numeric/FACES): 10 - Related Data Allergies Allergy/AdvReac Type Severity Reaction Status Date / Time No Known Allergies Allergy Verified 10/26/18 10:58 Home Meds: Home Meds QUEtiapine Fumarate [Quetiapine Fumarate ER] 10/26/18 [History] Past Medical History - Past Health History Medical/Surgical History: Denies Medical/Surgical History Gastrointestinal History: Reports: Gastritis Other Gastrointestinal History: EGD Musculoskeletal History: Reports: Fracture Neurological History: Reports: Concussion Other Neuro History: from playing hockey Psychiatric History: Reports: Anxiety, Depression, Hallucinations, Psych Hospitalization(s), Schizophrenia, Suicidal Ideation - Infectious Disease History Infectious Disease History: Reports: Chicken Pox - Past Surgical History GI Surgical History: Reports: EGD Other GI Surgeries/Procedures: 3 previous visits for hyperemasis 2nd to cannibus use Musculoskeletal Surgical History: Reports: Other (See Below) Other Musculoskeletal Surgeries/Procedures:: right wrist--glass removed Social & Family History - Caffeine Use Caffeine Use: Reports: Coffee, Energy Drinks, Soda, Tea Caffeine Use Comment: 2-3/day - Living Situation & Occupation Living situation: Reports: Single, with Family (disabled by schizophrenia, lives with his Father in [place], [place].) Occupation: Disabled ED ROS GENERAL - Review of Systems Review Of Systems: See Below Constitutional: Reports: Malaise, Decreased Appetite. Denies: Fever, Chills HEENT: Reports: No Symptoms Respiratory: Denies: Shortness of Breath Cardiovascular: Denies: Chest Pain GI/Abdominal: Reports: Abdominal Pain, Nausea, Vomiting Skin: Reports: No Symptoms Neurological: Denies: Headache Psychiatric: Reports: Other (Schizophrenia, no acute or current hallucinations) ED EXAM, GI/ABD - Physical Exam Exam: See Below Exam Limited By: No Limitations General Appearance: Alert, Mild Distress Eyes: Bilateral: Normal Appearance (No jaundice) Respiratory/Chest: No Respiratory Distress, Lungs Clear Cardiovascular: Regular Rate, Rhythm GI/Abdominal Exam: Tender (Generalized) Neurological: Alert, Oriented Skin Exam: Diaphoretic Course - Vital Signs Last Recorded V/S: Last Vital Signs Temp 98.1 F 10/26/18 11:35 Pulse 119 H 10/26/18 11:35 Resp 16 10/26/18 11:35 BP 147/86 H 10/26/18 11:35 Pulse Ox 99 10/26/18 11:35 - Orders/Labs/Meds Labs: Laboratory Tests 10/26/18 10/26/18 10/26/18 Range/Units 11:10 11:15 11:15 WBC 13.5 H (4.5-11.0) K/uL RBC 5.07 (4.30-5.90) M/uL Hgb 16.5 H (12.0-15.0) g/dL Hct 47.4 (40.0-54.0) % MCV 94 (80-98) fL MCH 33 H (27-31) pg MCHC 35 (32-36) % Plt Count 399 (150-400) K/uL Neut % (Auto) 78 H (36-66) % Lymph % (Auto) 15 L (24-44) % [place] % (Auto) 6 (2-6) % Eos % (Auto) 1 L (2-4) % Baso % (Auto) 0 (0-1) % Sodium 138 L (140-148) mmol/L Potassium 3.8 (3.6-5.2) mmol/L Chloride 99 L (100-108) mmol/L Carbon Dioxide 25 (21-32) mmol/L Anion Gap 17.8 H (5.0-14.0) mmol/L BUN 11 (7-18) mg/dL Creatinine 1.2 (0.8-1.3) mg/dL Est Cr Clr Drug Dosing 99.69 mL/min Estimated GFR (MDRD) > 60 (>60) Glucose 146 H (74-106) mg/dL Calcium 10.0 (8.5-10.1) mg/dL Lipase (73-393) U/L Urine Opiates Screen Negative (NEGATIVE) Ur Oxycodone Screen Negative (NEGATIVE) Urine Methadone Screen Negative (NEGATIVE) Ur Propoxyphene Screen Negative (NEGATIVE) Ur Barbiturates Screen Negative (NEGATIVE) Ur Tricyclics Screen Negative (NEGATIVE) Ur Phencyclidine Scrn Negative (NEGATIVE) Ur Amphetamine Screen Negative (NEGATIVE) U Methamphetamines Scrn Negative (NEGATIVE) Urine MDMA Screen Negative (NEGATIVE) U Benzodiazepines Scrn Presumptive positive H (NEGATIVE) U Cocaine Metab Screen Negative (NEGATIVE) U Marijuana (THC) Screen Presumptive positive H (NEGATIVE) 10/26/18 Range/Units 11:15 WBC (4.5-11.0) K/uL RBC (4.30-5.90) M/uL Hgb (12.0-15.0) g/dL Hct (40.0-54.0) % MCV (80-98) fL MCH (27-31) pg MCHC (32-36) % Plt Count (150-400) K/uL Neut % (Auto) (36-66) % Lymph % (Auto) (24-44) % [place] % (Auto) (2-6) % Eos % (Auto) (2-4) % Baso % (Auto) (0-1) % Sodium (140-148) mmol/L Potassium (3.6-5.2) mmol/L Chloride (100-108) mmol/L Carbon Dioxide (21-32) mmol/L Anion Gap (5.0-14.0) mmol/L BUN (7-18) mg/dL Creatinine (0.8-1.3) mg/dL Est Cr Clr Drug Dosing mL/min Estimated GFR (MDRD) (>60) Glucose (74-106) mg/dL Calcium (8.5-10.1) mg/dL Lipase 566 H (73-393) U/L Urine Opiates Screen (NEGATIVE) Ur Oxycodone Screen (NEGATIVE) Urine Methadone Screen (NEGATIVE) Ur Propoxyphene Screen (NEGATIVE) Ur Barbiturates Screen (NEGATIVE) Ur Tricyclics Screen (NEGATIVE) Ur Phencyclidine Scrn (NEGATIVE) Ur Amphetamine Screen (NEGATIVE) U Methamphetamines Scrn (NEGATIVE) Urine MDMA Screen (NEGATIVE) U Benzodiazepines Scrn (NEGATIVE) U Cocaine Metab Screen (NEGATIVE) U Marijuana (THC) Screen (NEGATIVE) Meds: Medications Discontinued Medications Generic Name Dose Route Start Last Admin Trade Name Flex PRN Reason Stop Dose Admin Lactated Ringer's 1,000 mls @ 1,000 mls/hr 10/26/18 14:45 10/26/18 14:45 Ringers, Lactated IV 1,000 mls/hr ASDIRECTED MAYLIN Administration Ketorolac Tromethamine 30 mg 10/26/18 11:09 10/26/18 11:28 Toradol IVPUSH 10/26/18 11:10 30 mg ONETIME ONE Administration Lorazepam 1 mg 10/26/18 11:09 10/26/18 11:29 Ativan IVPUSH 10/26/18 11:10 1 mg ONETIME ONE Administration Lorazepam 1 mg 10/26/18 14:32 10/26/18 14:46 Ativan IVPUSH 10/26/18 14:33 1 mg ONETIME ONE Administration Metoclopramide HCl 10 mg 10/26/18 14:32 10/26/18 14:45 Reglan IVPUSH 10/26/18 14:33 10 mg ONETIME ONE Administration Ondansetron HCl 4 mg 10/26/18 11:09 10/26/18 11:28 Zofran IVPUSH 10/26/18 11:10 4 mg ONETIME ONE Administration - Re-Assessments/Exams Free Text/Narrative Re-Assessment/Exam: 10/26/18 11:15 An IV was started, the patient will be given 30 mg of IV Toradol, 4 mg of Zofran and 1 mg of IV Ativan. CBC BMP lipase blood tests were obtained and we will attempt to get a UA for urine drug screen. He has also but positive for methamphetamine the past. 10/26/18 12:55 Labs returned nonspecific, white count, lipase, anion gap were and mildly elevated. After medications and a hot shower he improved but still had abdominal cramping. 10/26/18 12:56 Urine drug screen is positive for marijuana, also benzodiazepines but this was after he received IV Ativan. No other positives. 10/26/18 15:15 Patient had a period of 2-2-1/2 hours without emesis, when his symptoms started to exacerbate. LR was started, he was given 1 more milligram of Ativan and 10 mg of IV Reglan. Again he improved, his father arrived to take him home. He was given 5 doses of Zofran for additional nausea and vomiting control after discharge. He can be rechecked tomorrow if not continuing to improve. Departure - Departure Time of Disposition: 15:37 Disposition: Home, Self-Care 01 Clinical Impression: Cannabinoid hyperemesis syndrome Abdominal pain Qualifiers: Abdominal location: generalized Qualified Code(s): R10.84 - Generalized abdominal pain - Discharge Information Instructions: Nausea and Vomiting, Adult, [id number] Referrals: PCP,None [Primary Care Provider] - Forms: ED Department Discharge Care Plan Goals: Concentrate on oral fluids only for the rest of today, frequent small amounts. Use Zofran for persistent nausea. Recheck tomorrow if not improving satisfactorily. Avoid further marijuana use.
[2018-10-26 11:36] VITALS: BP 147/86; PULSE 119
[2018-10-26] MEDS ORDERED: Metoclopramide 10 MG/2 ML SDV IVPUSH ONE (14:32)
[2018-10-26] MEDS ORDERED: Lactated Ringers 1,000 ML IV SCH (14:45)
== END 2018-10-26 15:38 | disposition home or self-care (01) ==
LOC: JP.ED 10:49
DX: F12.988 Cannabis use, unspecified with other cannabis-induced disorder (principal); R11.2 Nausea with vomiting, unspecified; R10.84 Generalized abdominal pain
CPT/HCPCS: 36415; 80048; 80305; 83690; 85025; 96361; 96374; 96375; 96376; 99284; J1885; J2060; J2405; J2765; J7120